=== PATIENT | female | born 1945 | race Caucasian/White ===

== ENCOUNTER 2017-03-25 22:02 | Emergency (ER) | payer BC, MEDICARE ==
[2017-03-25 22:07] VITALS: RESP 18
[2017-03-25] MEDS ORDERED: diphenhydrAMINE 50 MG/ML 1 ML VIAL IVP STA (23:02)
[2017-03-25] MEDS ORDERED: ONDANSETRON 4 MG/2 ML VIAL IVP STA (23:02)
[2017-03-25] MEDS ORDERED: ACETAMINOPHEN TAB 325 MG TAB PO STA (23:02)
[2017-03-25] MEDS ORDERED: KETOROLAC 30 MG/ML 1 ML VIAL IVP STA (23:02)
[2017-03-25] MEDS ORDERED: SODIUM CHLORIDE 0.9% 500 ML IV STA (23:02)
[2017-03-26 00:02] LABS: Appearance,Urine Clear (Clear); Bilirubin,Urine Negative (Negative); Glucose,Urine (UA) Negative (Negative); Ketones,Urine Negative (Negative); Leukocyte Esterase,Urine Large (Negative); Mucus,Urine Rare /hpf; Nitrite,Urine Negative (Negative); PH, Urine 5.5 (5.0-8.0); Particle Count 3784; Protein,Urine Trace (Negative); RBC,Urine 1 /hpf (0-5); Specific Gravity,Urine 1.019 (1.001-1.035); Squamous Epithelial Cell,Urine 5 /hpf (0-4); UA Billing (MACRO vs. MICRO) MICRO; Urobilinogen,Urine <2.0 mg/dL (<2.0); WBC,Urine 2 /hpf (0-5)
--- NOTE | 2017-03-26 00:05 | XR ---
EXAM: XR Chest, 2 Views CLINICAL HISTORY: Cough, fever TECHNIQUE: Frontal and lateral views of the chest. COMPARISON: No relevant prior studies available. FINDINGS: Lungs: Flattening of the hemidiaphragms is seen, likely representing COPD. Biapical pleural thickening again noted. No consolidation. Pleural space: Unremarkable. No pneumothorax. Heart: Unremarkable. No cardiomegaly. Mediastinum: Unremarkable. Bones/joints: Osteopenia suggested. IMPRESSION: Evidence of COPD. No radiographic evidence of acute cardiopulmonary process.
[2017-03-26 00:12] LABS: Basophils % (A) 0 %; CH 31.7; CHCM 32.5; Eosinophils # (A) 0.2 k/uL (0-0.7); Eosinophils % (A) 2 %; HDW 2.19; HGB 13.5 gm/dL (11.4-16.0); Luc # (Auto) 0.08; Luc % (Auto) 1; Lymphocytes # (A) 1.2 k/uL (1.0-4.8); Lymphocytes % (A) 11 %; MCH 30.7 pg (25.0-35.0); MCHC 31.4 g/dL (31.0-37.0); MCV 97.9 fL (80.0-100.0); Mean Platelet Volume 8.8; Monocytes # (A) 0.5 k/uL (0-1.0); Monocytes % (A) 4 %; Neutrophils # (A) 9.3 k/uL (1.3-7.7); Neutrophils % (A) 83 %; RDW 13.7 % (11.5-15.5); WBC 11.2 k/uL (3.8-10.6); WBC (Perox) 11.12
[2017-03-26 00:20] LABS: ALT 30 U/L (9-52); AST 21 U/L (14-36); Alkaline Phosphatase 73 U/L (38-126); Anion Gap 11 mmol/L; Blood Urea Nitrogen 13 mg/dL (7-17); Calcium 9.5 mg/dL (8.4-10.2); Carbon Dioxide 25 mmol/L (22-30); Chloride 105 mmol/L (98-107); Glucose 122 mg/dL (74-99); Non-African American GFR(MDRD) 55 (>60 ml/min/1.73 sqM); Potassium 3.9 mmol/L (3.5-5.1); Sodium 141 mmol/L (137-145); Total Bilirubin 0.5 mg/dL (0.2-1.3); Total Protein 7.3 g/dL (6.3-8.2)
--- NOTE | 2017-03-26 00:55 | ED ---
URI HPI - General Chief Complaint: Upper Respiratory Infection Stated Complaint: Cough Time Seen by Provider: 03/25/17 22:54 Source: patient Mode of arrival: ambulatory Limitations: no limitations - History of Present Illness Initial Comments: 71-year-old female patient presents to the emergency department today for evaluation of cough, sore throat, nasal congestion, headache, and possible urinary tract infection. Patient states that upper respiratory symptoms started this morning. Patient states she has been coughing up clear sputum. She states that he is also having suprapubic abdominal pressure and cramping, and she has been urinating more frequently today. She denies any dysuria, hematuria, or urinary urgency. She states that she feels chilled and felt like she might have a fever earlier today. Patient states she has also been feeling nauseated however has not vomited. Patient denies any recent rash, shortness breath, chest pain, abdominal pain, diarrhea, constipation, back pain, numbness , tingling, dizziness, weakness, visual changes, or any other complaints. She denies any sick contacts. States she did not get the flu vaccine. - Related Data Home Medications Medication Instructions Recorded Confirmed Acetaminophen [Tylenol Extra 500 mg PO DAILY PRN 03/25/17 03/25/17 Strength] Cholecalciferol [Vitamin D3] 5,000 unit PO HS 03/25/17 03/25/17 Fluticasone Nasal [place] [Flonase 1 spray EA NOSTRIL DAILY PRN 03/25/17 03/25/17 Nasal [place]] Lisinopril [Zestril] 20 mg PO HS 03/25/17 03/25/17 Montelukast Sodium [Singulair] 10 mg PO DAILY 03/25/17 03/25/17 Multivitamins, Thera [Multivitamin 1 tab PO HS 03/25/17 03/25/17 (formulary)] Allergies Allergy/AdvReac Type Severity Reaction Status Date / Time benzocaine Allergy Unknown Verified 03/25/17 23:13 [From Chloraseptic Sore Throat] menthol Allergy Unknown Verified 03/25/17 23:13 [From Chloraseptic Sore Throat] Penicillins Allergy Unknown Verified 03/25/17 23:13 Sulfa (Sulfonamide Allergy Unknown Verified 03/25/17 23:13 Antibiotics) Review of Systems ROS Statement: Those systems with pertinent positive or pertinent negative responses have been documented in the HPI. ROS Other: All systems not noted in ROS Statement are negative. Past Medical History Past Medical History: Hypertension Additional Past Medical History / Comment(s): sinus allergies History of Any Multi-Drug Resistant Organisms: None Reported Past Surgical History: Bowel Resection, Hysterectomy Additional Past Surgical History / Comment(s): back Past Psychological History: No Psychological Hx Reported Smoking Status: Never smoker Past Alcohol Use History: None Reported Past Drug Use History: None Reported General Exam Limitations: no limitations General appearance: alert, in no apparent distress, other (This is a well- developed, well-nourished adult female patient in no acute distress. Vital signs upon presentation were temperature 100.8F, pulse 119, respirations 18, blood pressure 149/86, pulse ox 95% on room air.) Eye exam: Present: normal appearance, PERRL, EOMI. Absent: scleral icterus, conjunctival injection, periorbital swelling ENT exam: Present: normal exam, mucous membranes moist, TM's normal bilaterally , other (No tonsillar hypertrophy, tonsillar exudate, or uvular swelling.). Absent: normal oropharynx (Oropharyngeal erythema.) Neck exam: Present: normal inspection. Absent: tenderness, meningismus, lymphadenopathy Respiratory exam: Present: normal lung sounds bilaterally. Absent: respiratory distress, wheezes, rales, rhonchi, stridor Cardiovascular Exam: Present: normal rhythm, tachycardia, normal heart sounds. Absent: systolic murmur, diastolic murmur, rubs, gallop, clicks GI/Abdominal exam: Present: soft, normal bowel sounds. Absent: distended, tenderness, guarding, rebound, rigid Back exam: Present: normal inspection. Absent: CVA tenderness (R), CVA tenderness (L) Neurological exam: Present: alert, oriented X3, CN II-XII intact, other ( Strength in all 4 extremities is 5/5. Patient is alert, with fluid speech, acutely responsive.) Psychiatric exam: Present: normal affect, normal mood Skin exam: Present: warm, dry, intact, normal color. Absent: rash Course Vital Signs 03/25/17 03/26/17 03/26/17 22:04 00:12 01:02 Temperature 99.4 F 98.5 F 98.6 F Pulse Rate 119 H 71 79 Respiratory 18 18 18 Rate Blood Pressure 149/86 148/69 135/64 O2 Sat by Pulse 95 96 96 Oximetry Medical Decision Making - Medical Decision Making 71-year-old female patient presents to the emergency department today with upper respiratory symptoms as well as complaints of suprapubic cramping and urinary frequency. Patient was febrile upon arrival. Labs were reviewed and did show an elevated white blood cell count 11.2. Lactic acid was negative at 1.0. Urinalysis negative for infection. Influenza test was negative. Patient symptoms did improve with IV fluids and antipyretic medication. Vital signs much improved prior to discharge. Patient feels well enough to be discharged home. Symptoms most likely represent viral upper respiratory infection. She is instructed to continue taking Tylenol for fever control. She is instructed to take [id number] nasal decongestants and cough medications as needed. She is instructed to follow-up with her primary care physician for recheck in 1-2 days. She is instructed to return here immediately if her symptoms worsen. - Lab Data Result diagrams: 03/26/17 00:00 03/26/17 00:00 Lab Results 03/25/17 03/25/17 03/26/17 Range/Units 23:45 23:50 00:00 WBC 11.2 H (3.8-10.6) k/uL RBC 4.40 (3.80-5.40) m/uL Hgb 13.5 (11.4-16.0) gm/dL Hct 43.0 (34.0-46.0) % MCV 97.9 (80.0-100.0) fL MCH 30.7 (25.0-35.0) pg MCHC 31.4 (31.0-37.0) g/dL RDW 13.7 (11.5-15.5) % Plt Count 171 (150-450) k/uL Neutrophils % 83 % Lymphocytes % 11 % Monocytes % 4 % Eosinophils % 2 % Basophils % 0 % Neutrophils # 9.3 H (1.3-7.7) k/uL Lymphocytes # 1.2 (1.0-4.8) k/uL Monocytes # 0.5 (0-1.0) k/uL Eosinophils # 0.2 (0-0.7) k/uL Basophils # 0.0 (0-0.2) k/uL Sodium (137-145) mmol/L Potassium (3.5-5.1) mmol/L Chloride (98-107) mmol/L Carbon Dioxide (22-30) mmol/L Anion Gap mmol/L BUN (7-17) mg/dL Creatinine (0.52-1.04) mg/dL Est GFR (MDRD) Af Amer (>60 ml/min/1.73 sqM) Est GFR (MDRD) Non-Af (>60 ml/min/1.73 sqM) Glucose (74-99) mg/dL Plasma Lactic Acid Bob[place] (0.7-2.0) mmol/L Calcium (8.4-10.2) mg/dL Total Bilirubin (0.2-1.3) mg/dL AST (14-36) U/L ALT (9-52) U/L Alkaline Phosphatase (38-126) U/L Total Protein (6.3-8.2) g/dL Albumin (3.5-5.0) g/dL Urine Color Yellow Urine Appearance Clear (Clear) Urine pH 5.5 (5.0-8.0) Ur Specific [place] 1.019 (1.001-1.035) Urine Protein Trace H (Negative) Urine Glucose (UA) Negative (Negative) Urine Ketones Negative (Negative) Urine Blood Negative (Negative) Urine Nitrite Negative (Negative) Urine Bilirubin Negative (Negative) Urine Urobilinogen <2.0 (<2.0) mg/dL Ur Leukocyte Esterase Large H (Negative) Urine RBC 1 (0-5) /hpf Urine WBC 2 (0-5) /hpf Ur Squamous Epith Cells 5 H (0-4) /hpf Urine Mucus Rare H (None) /hpf Influenza Type A RNA Not Detected (Not Detectd) Influenza Type B (PCR) Not Detected (Not Detectd) 03/26/17 03/26/17 Range/Units 00:00 00:00 WBC (3.8-10.6) k/uL RBC (3.80-5.40) m/uL Hgb (11.4-16.0) gm/dL Hct (34.0-46.0) % MCV (80.0-100.0) fL MCH (25.0-35.0) pg MCHC (31.0-37.0) g/dL RDW (11.5-15.5) % Plt Count (150-450) k/uL Neutrophils % % Lymphocytes % % Monocytes % % Eosinophils % % Basophils % % Neutrophils # (1.3-7.7) k/uL Lymphocytes # (1.0-4.8) k/uL Monocytes # (0-1.0) k/uL Eosinophils # (0-0.7) k/uL Basophils # (0-0.2) k/uL Sodium 141 (137-145) mmol/L Potassium 3.9 (3.5-5.1) mmol/L Chloride 105 (98-107) mmol/L Carbon Dioxide 25 (22-30) mmol/L Anion Gap 11 mmol/L BUN 13 (7-17) mg/dL Creatinine 1.00 (0.52-1.04) mg/dL Est GFR (MDRD) Af Amer >60 (>60 ml/min/1.73 sqM) Est GFR (MDRD) Non-Af 55 (>60 ml/min/1.73 sqM) Glucose 122 H (74-99) mg/dL Plasma Lactic Acid Bobo 1.0 (0.7-2.0) mmol/L Calcium 9.5 (8.4-10.2) mg/dL Total Bilirubin 0.5 (0.2-1.3) mg/dL AST 21 (14-36) U/L ALT 30 (9-52) U/L Alkaline Phosphatase 73 (38-126) U/L Total Protein 7.3 (6.3-8.2) g/dL Albumin 4.4 (3.5-5.0) g/dL Urine Color Urine Appearance (Clear) Urine pH (5.0-8.0) Ur Specific [place] (1.001-1.035) Urine Protein (Negative) Urine Glucose (UA) (Negative) Urine Ketones (Negative) Urine Blood (Negative) Urine Nitrite (Negative) Urine Bilirubin (Negative) Urine Urobilinogen (<2.0) mg/dL Ur Leukocyte Esterase (Negative) Urine RBC (0-5) /hpf Urine WBC (0-5) /hpf Ur Squamous Epith Cells (0-4) /hpf Urine Mucus (None) /hpf Influenza Type A RNA (Not Detectd) Influenza Type B (PCR) (Not Detectd) - Radiology Data Radiology results: report reviewed, image reviewed Two-view x-ray of the chest shows flattening of the hemidiaphragms likely representing COPD. Biapical pleural thickening again noted. No consolidation. Pleural spaces unremarkable with no pneumothorax. Heart is unremarkable with no cardiomegaly. Mediastinum is unremarkable. Osteopenia is suggested. Impression by Dr. Powers shows evidence of COPD. No radiographic evidence of acute cardiopulmonary process. Disposition Clinical Impression: Viral upper respiratory illness Disposition: HOME SELF-CARE Condition: Good Instructions: Upper Respiratory Infection (ED) Additional Instructions: Increase fluids. Take [id number] nasal decongestants and cough medications. Follow-up with her primary care physician for recheck in 1-2 days. Return here immediately for any new, worsening, or concerning symptoms. Referrals: Matt Pacheco III, MD [Primary Care Provider] - 1-2 days Time of Disposition: 00:55
[2017-03-26 01:03] VITALS: BP 135/64; PULSE 79; TEMP 98.6
== END 2017-03-26 01:10 | disposition home or self-care (01) ==
LOC: EC 22:02
DX: J06.9 Acute upper respiratory infection, unspecified (principal); R05 Cough; I10 Essential (primary) hypertension; Z79.899 Other long term (current) drug therapy; Z88.0 Allergy status to penicillin; Z88.2 Allergy status to sulfonamides; Z88.4 Allergy status to anesthetic agent; Z88.8 Allergy status to other drugs, medicaments and biological substances
CPT/HCPCS: 99284; 96374; 96375 ×2; 96361; 36415; 93005; 80053; 83605; 85025; 81001; 87040; 87077; 87186; 87502; 71020; J1200; J2405; J1885

== ENCOUNTER 2017-04-02 11:06 | Emergency (ER) | payer MEDICARE ==
--- NOTE | 2017-04-02 12:36 | ED ---
General Adult HPI - General Chief complaint: Recheck/Abnormal Lab/Rx Stated complaint: ABNORMAL LABS Time Seen by Provider: 04/02/17 12:23 Source: patient, RN notes reviewed Mode of arrival: ambulatory Limitations: no limitations - History of Present Illness Initial comments: Patient 71-year-old female who presents emergency room today with a chief complaint of cough congestion over the last week. She does admit that she was seen in the hospital. She states she had blood work obtained. She states that she was discharged home. She states that she saw her family doctor was put on azithromycin and a steroid for her cough congestion. States she still having the cough congestion has finished these medications. States she was informed by her family doctor last Sunday that she had a positive blood culture and should return to the emergency room. She states she was unable to come in over the weekend. She states she is here today because positive blood culture was told that she would need IV antibiotics. Patient denies any other complaints or symptoms. Patient denies any recent fever, chills, shortness of breath, chest pain, back pain, abdominal pain, nausea or vomiting, numbness or tingling , dysuria or hematuria, constipation or diarrhea, headaches or visual changes, or any other complaints. - Related Data Home Medications Medication Instructions Recorded Confirmed Fluticasone Nasal [place] [Flonase 1 spray EA NOSTRIL DAILY PRN 03/25/17 04/02/17 Nasal [place]] Lisinopril [Zestril] 20 mg PO DAILY 03/25/17 04/02/17 Montelukast Sodium [Singulair] 10 mg PO DAILY 03/25/17 04/02/17 Multivitamins, Thera [Multivitamin 1 tab PO DAILY 03/25/17 04/02/17 (formulary)] Biotin 5,000 mcg PO DAILY 04/02/17 04/02/17 Previous Rx's Medication Instructions Recorded Levofloxacin [Levaquin] 500 mg PO DAILY 7 Days tab 04/02/17 Allergies Allergy/AdvReac Type Severity Reaction Status Date / Time benzocaine Allergy Unknown Verified 04/02/17 12:33 [From Chloraseptic Sore Throat] menthol Allergy Unknown Verified 04/02/17 12:33 [From Chloraseptic Sore Throat] Penicillins Allergy Unknown Verified 04/02/17 12:33 Sulfa (Sulfonamide Allergy Unknown Verified 04/02/17 12:33 Antibiotics) Review of Systems ROS Statement: Those systems with pertinent positive or pertinent negative responses have been documented in the HPI. ROS Other: All systems not noted in ROS Statement are negative. Past Medical History Past Medical History: Hypertension Additional Past Medical History / Comment(s): sinus allergies History of Any Multi-Drug Resistant Organisms: None Reported Past Surgical History: Bowel Resection, Hysterectomy Additional Past Surgical History / Comment(s): back Past Psychological History: No Psychological Hx Reported Smoking Status: Never smoker Past Alcohol Use History: None Reported Past Drug Use History: None Reported General Exam - General Exam Comments Initial Comments: General: The patient is awake and alert, in no distress, and does not appear acutely ill. Eye: Pupils are equal, round and reactive to light, extra-ocular movements are intact. No nystagmus. There is normal conjunctiva bilaterally. No signs of icterus. Ears, nose, mouth and throat: There are moist mucous membranes and no oral lesions. Neck: The neck is supple, there is no tenderness or JVD. Cardiovascular: There is a regular rate and rhythm. No murmur, rub or gallop is appreciated. Respiratory: Lungs are clear to auscultation, respirations are non-labored, breath sounds are equal. No wheezes, stridor, rales, or rhonchi. Musculoskeletal: Normal ROM, no tenderness. Strength 5/5. Sensation intact. Pulses equal bilaterally 2+. Neurological: A&O x 3. CN II-XII intact, There are no obvious motor or sensory deficits. Coordination appears grossly intact. Speech is normal. Skin: Skin is warm and dry and no rashes or lesions are noted. Psychiatric: Cooperative, appropriate mood & affect, normal judgment. Limitations: no limitations Course Vital Signs 04/02/17 04/02/17 04/02/17 11:16 13:06 13:50 Temperature 98.0 F 98.7 F Pulse Rate 70 86 Respiratory 20 16 16 Rate Blood Pressure 193/85 O2 Sat by Pulse 99 96 Oximetry Medical Decision Making - Medical Decision Making Patient reexamined at this time shows no signs of distress. Case was discussed and seen by attending physician Dr. Bass discussed case with patient's primary provider Dr. Katherine Powers physician catering assistant who states that she can follow-up with her in the office later this week. Patient clinically appears well no fever. Her labs been reviewed shows all of those white count. Patient is but that she is feeling better when she was a week ago when she was seen here in the emergency room. Unsure if the culture could be possible contaminant. At this time patient will be treated for sinus infection placed on Levaquin. She states she would like to be discharged to stay in the hospital. Patient advised to follow-up the family doctor in the next day. Advised return if any symptoms increase or worsen. - Lab Data Result diagrams: 04/02/17 12:55 04/02/17 12:55 Lab Results 04/02/17 04/02/17 04/02/17 Range/Units 12:55 12:55 12:55 WBC 11.9 H (3.8-10.6) k/uL RBC 4.45 (3.80-5.40) m/uL Hgb 14.0 (11.4-16.0) gm/dL Hct 42.7 (34.0-46.0) % MCV 96.0 (80.0-100.0) fL MCH 31.4 (25.0-35.0) pg MCHC 32.7 (31.0-37.0) g/dL RDW 13.6 (11.5-15.5) % Plt Count 267 (150-450) k/uL Neutrophils % 81 % Lymphocytes % 12 % Monocytes % 4 % Eosinophils % 2 % Basophils % 0 % Neutrophils # 9.6 H (1.3-7.7) k/uL Lymphocytes # 1.5 (1.0-4.8) k/uL Monocytes # 0.4 (0-1.0) k/uL Eosinophils # 0.2 (0-0.7) k/uL Basophils # 0.0 (0-0.2) k/uL Sodium 142 (137-145) mmol/L Potassium 4.9 (3.5-5.1) mmol/L Chloride 104 (98-107) mmol/L Carbon Dioxide 28 (22-30) mmol/L Anion Gap 10 mmol/L BUN 18 H (7-17) mg/dL Creatinine 0.89 (0.52-1.04) mg/dL Est GFR (MDRD) Af Amer >60 (>60 ml/min/1.73 sqM) Est GFR (MDRD) Non-Af >60 (>60 ml/min/1.73 sqM) Glucose 101 H (74-99) mg/dL Plasma Lactic Acid Bobo 2.5 H* (0.7-2.0) mmol/L Calcium 9.8 (8.4-10.2) mg/dL Total Bilirubin 0.3 (0.2-1.3) mg/dL AST 18 (14-36) U/L ALT 24 (9-52) U/L Alkaline Phosphatase 77 (38-126) U/L Total Protein 7.8 (6.3-8.2) g/dL Albumin 4.5 (3.5-5.0) g/dL Urine Color Urine Appearance (Clear) Urine pH (5.0-8.0) Ur Specific [place] (1.001-1.035) Urine Protein (Negative) Urine Glucose (UA) (Negative) Urine Ketones (Negative) Urine Blood (Negative) Urine Nitrite (Negative) Urine Bilirubin (Negative) Urine Urobilinogen (<2.0) mg/dL Ur Leukocyte Esterase (Negative) Urine WBC (0-5) /hpf Ur Squamous Epith Cells (0-4) /hpf Urine Bacteria (None) /hpf Hyaline Casts (0-2) /lpf Urine Mucus (None) /hpf 04/02/17 Range/Units 13:01 WBC (3.8-10.6) k/uL RBC (3.80-5.40) m/uL Hgb (11.4-16.0) gm/dL Hct (34.0-46.0) % MCV (80.0-100.0) fL MCH (25.0-35.0) pg MCHC (31.0-37.0) g/dL RDW (11.5-15.5) % Plt Count (150-450) k/uL Neutrophils % % Lymphocytes % % Monocytes % % Eosinophils % % Basophils % % Neutrophils # (1.3-7.7) k/uL Lymphocytes # (1.0-4.8) k/uL Monocytes # (0-1.0) k/uL Eosinophils # (0-0.7) k/uL Basophils # (0-0.2) k/uL Sodium (137-145) mmol/L Potassium (3.5-5.1) mmol/L Chloride (98-107) mmol/L Carbon Dioxide (22-30) mmol/L Anion Gap mmol/L BUN (7-17) mg/dL Creatinine (0.52-1.04) mg/dL Est GFR (MDRD) Af Amer (>60 ml/min/1.73 sqM) Est GFR (MDRD) Non-Af (>60 ml/min/1.73 sqM) Glucose (74-99) mg/dL Plasma Lactic Acid [place] (0.7-2.0) mmol/L Calcium (8.4-10.2) mg/dL Total Bilirubin (0.2-1.3) mg/dL AST (14-36) U/L ALT (9-52) U/L Alkaline Phosphatase (38-126) U/L Total Protein (6.3-8.2) g/dL Albumin (3.5-5.0) g/dL Urine Color Yellow Urine Appearance Cloudy H (Clear) Urine pH 5.0 (5.0-8.0) Ur Specific [place] 1.011 (1.001-1.035) Urine Protein Negative (Negative) Urine Glucose (UA) Negative (Negative) Urine Ketones Negative (Negative) Urine Blood Negative (Negative) Urine Nitrite Negative (Negative) Urine Bilirubin Negative (Negative) Urine Urobilinogen <2.0 (<2.0) mg/dL Ur Leukocyte Esterase Trace H (Negative) Urine WBC <1 (0-5) /hpf Ur Squamous Epith Cells 4 (0-4) /hpf Urine Bacteria Rare H (None) /hpf Hyaline Casts 1 (0-2) /lpf Urine Mucus Rare H (None) /hpf Disposition Clinical Impression: Sinusitis Disposition: HOME SELF-CARE Condition: Good Instructions: Sinusitis (ED) Additional Instructions: Please use medication as discussed. Please follow-up with family doctor in the next 1-2 days. Please return to emergency room if the symptoms increase or worsen or for any other concerns. Prescriptions: Levofloxacin [Levaquin] 500 mg PO DAILY 7 Days tab Referrals: Matt Pacheco III, MD [Primary Care Provider] - 1-2 days Time of Disposition: 14:24
[2017-04-02 13:07] VITALS: RESP 16
[2017-04-02 13:11] LABS: Basophils % (A) 0 %; CH 30.9; CHCM 32.3; Eosinophils # (A) 0.2 k/uL (0-0.7); Eosinophils % (A) 2 %; HCT 42.7 % (34.0-46.0); HDW 2.22; Luc % (Auto) 1; Lymphocytes # (A) 1.5 k/uL (1.0-4.8); Lymphocytes % (A) 12 %; MCH 31.4 pg (25.0-35.0); MCHC 32.7 g/dL (31.0-37.0); Mean Platelet Volume 8.7; Monocytes # (A) 0.4 k/uL (0-1.0); Monocytes % (A) 4 %; Neutrophils # (A) 9.6 k/uL (1.3-7.7); Neutrophils % (A) 81 %; RBC 4.45 m/uL (3.80-5.40); RDW 13.6 % (11.5-15.5); WBC 11.9 k/uL (3.8-10.6); WBC (Perox) 12.93
[2017-04-02 13:16] LABS: Appearance,Urine Cloudy (Clear); Bacteria,Urine Rare /hpf; Bilirubin,Urine Negative (Negative); Glucose,Urine (UA) Negative (Negative); Ketones,Urine Negative (Negative); Leukocyte Esterase,Urine Trace (Negative); Mucus,Urine Rare /hpf; Nitrite,Urine Negative (Negative); Particle Count 1413; Protein,Urine Negative (Negative); Specific Gravity,Urine 1.011 (1.001-1.035); Squamous Epithelial Cell,Urine 4 /hpf (0-4); UA Billing (MACRO vs. MICRO) MICRO; Urobilinogen,Urine <2.0 mg/dL (<2.0); WBC,Urine <1 /hpf (0-5)
[2017-04-02 13:23] LABS: ALT 24 U/L (9-52); AST 18 U/L (14-36); Alkaline Phosphatase 77 U/L (38-126); Anion Gap 10 mmol/L; Blood Urea Nitrogen 18 mg/dL (7-17); Calcium 9.8 mg/dL (8.4-10.2); Carbon Dioxide 28 mmol/L (22-30); Chloride 104 mmol/L (98-107); Glucose 101 mg/dL (74-99); Non-African American GFR(MDRD) >60 (>60 ml/min/1.73 sqM); Potassium 4.9 mmol/L (3.5-5.1); Sodium 142 mmol/L (137-145); Total Bilirubin 0.3 mg/dL (0.2-1.3); Total Protein 7.8 g/dL (6.3-8.2)
--- NOTE | 2017-04-02 13:32 | XR ---
EXAMINATION TYPE: XR chest 2V DATE OF EXAM: 04/02/2017 COMPARISON: 03/25/2017 HISTORY: 71-year-old female with cough TECHNIQUE: PA and lateral views FINDINGS: The cardiomediastinal silhouette, aorta, and pulmonary vasculature are within normal limits. Lungs an d pleural spaces are clear. IMPRESSION: No acute cardiopulmonary process.
[2017-04-02 14:02] VITALS: BP 193/85; PULSE 86; TEMP 98.7
== END 2017-04-02 14:35 | disposition home or self-care (01) ==
LOC: EC 11:06
DX: J32.9 Chronic sinusitis, unspecified (principal); R79.9 Abnormal finding of blood chemistry, unspecified; I10 Essential (primary) hypertension; Z79.899 Other long term (current) drug therapy; Z88.0 Allergy status to penicillin; Z88.2 Allergy status to sulfonamides; Z88.8 Allergy status to other drugs, medicaments and biological substances
CPT/HCPCS: 36415; 71020; 80053; 81001; 83605; 85025; 87040; 87086; 99283

== ENCOUNTER 2019-12-04 17:00 | Observation (INO) | payer MEDICARE ==
[2019-12-04 17:28] LABS: Basophils # (A) 0.1 k/uL (0-0.2); Basophils % (A) 1 %; Eosinophils # (A) 0.2 k/uL (0-0.7); Eosinophils % (A) 2 %; HCT 39.4 % (34.0-46.0); HGB 12.8 gm/dL (11.4-16.0); Lymphocytes # (A) 1.6 k/uL (1.0-4.8); Lymphocytes % (A) 20 %; MCH 30.7 pg (25.0-35.0); MCHC 32.6 g/dL (31.0-37.0); MCV 94.4 fL (80.0-100.0); Mean Platelet Volume 8.7; Monocytes # (A) 0.5 k/uL (0-1.0); Monocytes % (A) 6 %; Neutrophils # (A) 5.2 k/uL (1.3-7.7); Neutrophils % (A) 69 %; Platelet Count 191 k/uL (150-450); RBC 4.18 m/uL (3.80-5.40); RDW 13.2 % (11.5-15.5); WBC 7.6 k/uL (3.8-10.6)
[2019-12-04 17:37] LABS: Albumin 4.7 g/dL (3.5-5.0); Calcium 9.7 mg/dL (8.4-10.2); Potassium 3.8 mmol/L (3.5-5.1); Total Bilirubin 0.3 mg/dL (0.2-1.3); Total Protein 7.5 g/dL (6.3-8.2)
[2019-12-04] MEDS ORDERED: ASPIRIN 81 MG PO STA (17:43)
[2019-12-04] MEDS ORDERED: NITROGLYCERIN SL TABS 0.4 MG TAB SUBLINGUAL STA (17:43)
[2019-12-04 17:45] LABS: D-Dimer 0.33 mg/L FEU (<0.60); INR 0.9 (<1.2); Partial Thromboplastin Time 22.5 sec (22.0-30.0); Prothrombin Time 9.5 sec (9.0-12.0)
--- NOTE | 2019-12-04 17:49 | ED ---
Chest Pain HPI - General Chief Complaint: Chest Pain Stated Complaint: Chest Pain, HTN Time Seen by Provider: 12/04/19 17:12 Source: patient, RN notes reviewed Mode of arrival: ambulatory Limitations: no limitations - History of Present Illness Initial Comments: This is a 74-year-old female with a prior history of heart disease who was brought in by her family with complaints of elevated blood pressure was noted at her eye doctor appointment today. She also is been having chest pain. She states across her chest with some left arm tingling. She sees currently is 4- 5/10 severity. He states he was feeling exhausted for past several weeks she had a lot of personal trauma with a sister dying as well as with moving. There is a family history of heart disease. No cough no phlegm production no fevers chills or sweats reported MD Complaint: chest pain, other - Related Data Home Medications Medication Instructions Recorded Confirmed Montelukast Sodium [Singulair] 10 mg PO DAILY 03/25/17 12/04/19 diphenhydrAMINE [Benadryl] 25 mg PO HS PRN 12/04/19 12/04/19 Allergies Allergy/AdvReac Type Severity Reaction Status Date / Time benzocaine Allergy Unknown Verified 12/04/19 18:15 [From Chloraseptic Sore Throat] menthol Allergy Unknown Verified 12/04/19 18:15 [From Chloraseptic Sore Throat] Penicillins Allergy Unknown Verified 12/04/19 18:15 Sulfa (Sulfonamide Allergy Unknown Verified 12/04/19 18:15 Antibiotics) Review of Systems ROS Statement: Those systems with pertinent positive or pertinent negative responses have been documented in the HPI. ROS Other: All systems not noted in ROS Statement are negative. EKG Findings - EKG Results: EKG: interpreted by MARCELL, sinus rhythm (Sinus rhythm of 77 appear interval 150 QRS duration 92 QT since QTC 372/420 LVH) Past Medical History Past Medical History: Hypertension Additional Past Medical History / Comment(s): sinus allergies History of Any Multi-Drug Resistant Organisms: None Reported Past Surgical History: Bowel Resection, Hysterectomy Additional Past Surgical History / Comment(s): back Past Psychological History: No Psychological Hx Reported Smoking Status: Never smoker Past Alcohol Use History: None Reported Past Drug Use History: None Reported General Exam - General Exam Comments Initial Comments: This is a well-developed well-nourished awake alert oriented 3 female Limitations: no limitations General appearance: alert, in no apparent distress Head exam: Present: atraumatic, normocephalic, normal inspection Eye exam: Present: normal appearance, PERRL, EOMI. Absent: scleral icterus, conjunctival injection, periorbital swelling ENT exam: Present: normal exam, mucous membranes moist Neck exam: Present: normal inspection. Absent: tenderness, meningismus, lymphadenopathy Respiratory exam: Present: normal lung sounds bilaterally. Absent: respiratory distress, wheezes, rales, rhonchi, stridor Cardiovascular Exam: Present: regular rate, normal rhythm, normal heart sounds. Absent: systolic murmur, diastolic murmur, rubs, gallop, clicks GI/Abdominal exam: Present: soft, normal bowel sounds. Absent: distended, tenderness, guarding, rebound, rigid Extremities exam: Present: normal inspection, full ROM, normal capillary refill. Absent: tenderness, pedal edema, joint swelling, calf tenderness Back exam: Present: normal inspection Neurological exam: Present: alert, oriented X3, CN II-XII intact Psychiatric exam: Present: normal affect, normal mood Skin exam: Present: warm, dry, intact, normal color. Absent: rash Course Vital Signs 12/04/19 12/04/19 12/04/19 17:05 18:09 18:53 Temperature 98.3 F Pulse Rate 82 90 70 Respiratory 18 16 16 Rate Blood Pressure 190/100 174/92 159/67 O2 Sat by Pulse 98 99 100 Oximetry Chest Pain MDM - MDM I did review the imaging and report no acute findings. Patient is feeling improved. The presentation is concerning for angina/ACS. Patient will be admitted for evaluation. The patient was seen by Dr. Marshall in the emergency department. Issue blood pressure still elevated. Disposition Clinical Impression: Unstable angina pectoris, Chest pain, Hypertension Disposition: ADMITTED IP TO THIS HOSP Condition: Fair Referrals: Sabrina Sanchez MD [Primary Care Provider] - 1-2 days
--- NOTE | 2019-12-04 18:24 | XR ---
EXAMINATION: XR chest 2V DATE AND TIME: 12/04/2019 5:37 PM CLINICAL INDICATION: PHH; Chest Pain TECHNIQUE: Departmental protocol COMPARISON: 04/02/2017 FINDINGS: The lungs are clear. The pleural spaces are negative. The cardiac silhouette is not enlarged. The remainder of the mediastinal silhouette is unremarkable. The skeletal structures and soft tissues are negative for acute findings. IMPRESSION: Negative examination.
[2019-12-04] MEDS ORDERED: NITROGLYCERIN SL TABS 0.4 MG TAB SUBLINGUAL PRN (19:29)
[2019-12-04] MEDS ORDERED: HEPARIN SODIUM,PORCINE 5,000 UNIT/ML 1 ML VIAL IV ONE (19:29)
[2019-12-04] MEDS ORDERED: HEPARIN SOD,PORK IN 0.45% NACL 25,000 UNIT in 0.45% NACL 1 250ML.BAG IV SCH (19:30)
[2019-12-04] MEDS ORDERED: diphenhydrAMINE 25 MG CAP PO PRN (19:31)
[2019-12-04] MEDS ORDERED: HYDROcodone/APAP 5-325MG 1 EACH TAB PO PRN (20:04)
[2019-12-04] MEDS ORDERED: ACETAMINOPHEN TAB 500 MG TAB PO PRN (20:04)
[2019-12-04] MEDS ORDERED: ALPRAZolam 0.25 MG TAB PO PRN (20:04)
[2019-12-04] MEDS ORDERED: TEMAZEPAM 15 MG CAP PO PRN (20:04)
[2019-12-04] MEDS: METOPROLOL TARTRATE 12.5 MG TAB PO SCH (21:29)
--- NOTE | 2019-12-04 21:54 | HP ---
HISTORY AND PHYSICAL DATE OF SERVICE: 12/04/2019 CHIEF COMPLAINT: Chest pain. HISTORY OF PRESENT ILLNESS: This 74-year-old woman with a past medical history of multiple medical problems, including hypertension, history of sinus allergies, history of bowel resection, history of hysterectomy, being followed by Katherine Powers and Dr. Sabrina Sanchez in the outpatient setting, was complaining of chest discomfort, more of a heavy in character. Patient also had elevated blood pressure. The patient also was complaining of pain in the back of the head as well as behind the eyes. Discomfort was about 4 to 5 out of 10 in intensity. Patient was feeling exhausted for the last few weeks. The patient had significant social stress associated with her sister dying and moving also. There is no history of any fever, rigor or chills. No history of headache, loss of consciousness, seizures at this time. PAST MEDICAL HISTORY: Hypertension, history of sinus allergy, bowel resection, hysterectomy. HOME MEDICATIONS: 1. Benadryl 25 mg at bedtime p.r.n. 2. Singulair 10 mg daily. ALLERGIES: BENZOCAINE, MENTHOL, PENICILLIN, SULFA. FAMILY HISTORY: No history of heart disease or strokes in the family. SOCIAL HISTORY: No history of smoking. No history of alcohol intake. REVIEW OF SYSTEMS: ENT: As mentioned earlier. CARDIOVASCULAR SYSTEM: As mentioned earlier. RESPIRATORY SYSTEM: No cough, hemoptysis. GI: No nausea, vomiting. : No dysuria or retention. NERVOUS SYSTEM: No numbness, weakness. ALLERGY/IMMUNOLOGY: No asthma, hayfever. MUSCULOSKELETAL: As mentioned earlier. HEMATOLOGY/ONCOLOGY: No history of anemia. ENDOCRINE: No history of diabetes, hypothyroidism. CONSTITUTIONAL: As mentioned earlier. DERMATOLOGY: Negative. RHEUMATOLOGY: Negative. PSYCHIATRY: As mentioned earlier. PHYSICAL EXAMINATION: Patient alert and oriented x3. Pulse 70, blood pressure 159/67, respirations 16, temperature 98.3, pulse ox 100% on room air. HEENT: Conjunctivae normal. Oral mucosa moist. NECK: No jugular venous distention. No carotid bruit. No lymph node enlargement. CARDIOVASCULAR SYSTEM: S1, S2 muffled. RESPIRATORY SYSTEM: Breath sounds diminished at the bases. No rhonchi. No crackles. ABDOMEN: Soft, non-tender. No mass palpable. LEGS: No edema. No swelling. NERVOUS SYSTEM: Higher functions as mentioned earlier. Moves all 4 limbs. No focal motor or sensory deficit. LYMPHATICS: No lymph node palpable in neck, axillae or groin. SKIN: No ulcer, rash, bleeding. JOINTS: No active deforming arthropathy. LABS: CBC within normal limits and glucose 104. ASSESSMENT: 1. Chest pain, possible unstable angina. 2. Hypertensive urgency and accelerated hypertension. 3. History of sinus allergy. 4. Bowel resection. 5. History of hysterectomy. 6. History of back pain, degenerative joint disease. RECOMMENDATIONS AND DISCUSSION: In this 74-year-old woman who presented with multiple complex medical issues, at this time we will monitor the patient closely, continue the current medications, continue with symptomatic treatment. I would recommend beta blockers, cardiology evaluation. Possible cardiac stress test. Otherwise, n.p.o. after midnight. Symptomatic treatment. Prognosis is guarded because of multiple complex medical issues. Further recommendations to follow. A copy of this dictation is being forwarded to Katherine Powers and Dr. Sabrina Sanchez. MMMAMTAL / IJN: [id number] /
[2019-12-05] MEDS: NITROGLYCERIN OINT 1 INCH/GM PACKET TOPICAL SCH ×2 (00:10→06:08)
[2019-12-05] MEDS ORDERED: HEPARIN SODIUM,PORCINE 5,000 UNIT/ML 1 ML VIAL IV PRN (01:35)
[2019-12-05] MEDS ORDERED: PANTOPRAZOLE 40 MG TABLET PO SCH (07:30)
[2019-12-05 07:48] LABS: Basophils % (A) 1 %; Eosinophils # (A) 0.2 k/uL (0-0.7); Eosinophils % (A) 4 %; HCT 37.4 % (34.0-46.0); HGB 12.1 gm/dL (11.4-16.0); Lymphocytes # (A) 2.2 k/uL (1.0-4.8); Lymphocytes % (A) 33 %; MCH 30.9 pg (25.0-35.0); MCHC 32.4 g/dL (31.0-37.0); MCV 95.4 fL (80.0-100.0); Mean Platelet Volume 8.8; Monocytes # (A) 0.4 k/uL (0-1.0); Monocytes % (A) 6 %; Neutrophils # (A) 3.6 k/uL (1.3-7.7); Neutrophils % (A) 55 %; Platelet Count 164 k/uL (150-450); RBC 3.92 m/uL (3.80-5.40); RDW 13.2 % (11.5-15.5); WBC 6.6 k/uL (3.8-10.6)
[2019-12-05] MEDS ORDERED: REGADENOSON 0.4 MG/5 ML SYRINGE IV ONE (08:31)
[2019-12-05] MEDS ORDERED: CAFFEINE CITRATE 60 MG/3 ML VIAL IV PRN (08:31)
[2019-12-05] MEDS ORDERED: AMINOPHYLLINE 500 MG/20 ML VIAL IV PRN (08:31)
[2019-12-05 08:58] LABS: Calcium 9.1 mg/dL (8.4-10.2)
[2019-12-05] MEDS ORDERED: lisinopriL 10 MG TAB PO SCH (09:00)
[2019-12-05] MEDS ORDERED: ASPIRIN 325 MG TAB PO SCH (09:00)
[2019-12-05] MEDS ORDERED: MONTELUKAST 10 MG TAB PO SCH (09:00)
[2019-12-05 11:24] VITALS: RESP 16
[2019-12-05] MEDS ORDERED: AMINOPHYLLINE 500 MG/20 ML VIAL IV ONE (11:25)
--- NOTE | 2019-12-05 11:27 | P.CRDCN ---
History of Present Illness History of present illness: HISTORY OF PRESENTING ILLNESS This is a pleasant 74-year-old female past medical history significant for hypertension. She follows regularly with her primary care physician however has had a lot of life changes recently. She recently lost her sister unexpectedly and is currently moving her residence. She has not been to see her primary care physician recently and ran out of her prescribed Lopressor. She has not taken it for over 3 weeks. She denies prior history of coronary artery disease and does not follow regularly with a ocular pathologist. She states approximately 20 years ago she did undergo cardiac catheterization and was told she has small arteries but had no blockages. Exact details are unavailable. We have been asked to see in consultation for chest pain. She states for the previous 2-3 weeks since losing her sister she has been experiencing intermittent heaviness in the left precordial region. At times it radiates down into the left arm and hand and her arm feels quite heavy. It is not associated with exertion or activity. It is not exacerbated by deep inspiration or movement of her torso. She was a true reading this discomfort to [facility]. She we nt for a scheduled eye exam yesterday and one there her blood pressure was elevated over 200 systolic. She discussed with her primary care physician and was sent to the hospital for blood pressure management. On arrival to the hospital blood pressure was 190/100 with a heart rate of 82. DIAGNOSTICS EKG reveals sinus mechanism heart rate of 77 with significant LVH T-wave inversions noted in the lateral leads consistent with LVH. Compared with previous EKGs in 2017 no acute changes noted. Chest xray negative for an acute cardiopulmonary process. Laboratory reviewed, CBC unremarkable, d-dimer 0.33, sodium 139, potassium 4.0, creatinine 0.89, magnesium 2.0, cardiac enzymes negative 3, NT proBNP 352, LDL 87 HDL 56. REVIEW OF SYSTEMS At the time of my exam: CONSTITUTIONAL: Denies fever or chills. CARDIOVASCULAR: Denies chest pain, shortness of breath, orthopnea, PND or palpitations. RESPIRATORY: Denies cough. GASTROINTESTINAL: Denies abdominal pain, diarrhea, constipation, nausea or v omiting. MUSCULOSKELETAL: Denies myalgias. NEUROLOGIC: Denies numbness, tingling or weakness. ENDOCRINE: Denies fatigue, weight change, polydipsia or polyurina. GENITOURINARY: Denies burning, hematuria or urgency with micturation. HEMATOLOGIC: Denies history of anemia or bleeding. PHYSICAL EXAMINATION Blood pressure 157/71 heart rate 62 afebrile and maintaining oxygen saturation on room air. CONSTITUTIONAL: No apparent distress. HEENT: Head is normocephalic. Pupils are equal, round. Sclerae anicteric. Mucous membranes of the mouth are moist. No JVD. No carotid bruit. CHEST EXAMINATION: Lungs are clear to auscultation. No chest wall tenderness is noted on palpation or with deep breathing. HEART EXAMINATION: Regular rate and rhythm. S1, S2 heard. No murmurs, gallops or rub. ABDOMEN: Soft, nontender. Positive bowel sounds. EXTREMITIES: 2+ peripheral pulses, no lower extremity edema and no calf tenderness. NEUROLOGIC EXAMINATION: Patient is awake, alert and oriented x3. ASSESSMENT Chest pain, an acute coronary event has been ruled out. Uncontrolled hypertension PLAN An acute coronary event has been ruled out. Initiate lisinopril along with Lopressor for hypertension management. Obtain 2-D echocardiogram and Doppler study to assess cardiac structure and function. Proceed with Lexiscan stress test to assess for underlying cardiac ischemia. If reversibility is noted we consider proceeding with cardiac catheterization. If stress test is unremarkable she may be discharged from a cardiac perspective. Medication compliance discussed at length. Advised her to obtain a blood pressure cuff and check her blood pressure at home daily. Keep a journal to bring to her follow-up appointment. Follow-up in the office with Dr. Guthrie in 2 weeks. Thank you kindly for this consultation. Nurse Practitioner note has been reviewed, I agree with a documented findings and plan of care. Patient was seen and examined. Past Medical History Past Medical History: Hypertension Additional Past Medical History / Comment(s): sinus allergies History of Any Multi-Drug Resistant Organisms: None Reported Past Surgical History: Bowel Resection, Hysterectomy Additional Past Surgical History / Comment(s): two back surgeries Past Psychological History: No Psychological Hx Reported Smoking Status: Never smoker Past Alcohol Use History: None Reported Past Drug Use History: None Reported - Past Family History Mother Family Medical History: CVA/TIA Sister(s) Family Medical History: Congestive Heart Failure (CHF) Additional Family Medical History / Comment(s): Angina Medications and Allergies Home Medications Medication Instructions Recorded Confirmed Type Montelukast Sodium [Singulair] 10 mg PO DAILY 03/25/17 12/04/19 History diphenhydrAMINE [Benadryl] 25 mg PO HS PRN 12/04/19 12/04/19 History Allergies Allergy/AdvReac Type Severity Reaction Status Date / Time benzocaine Allergy Unknown Verified 12/04/19 18:15 [From Chloraseptic Sore Throat] menthol Allergy Unknown Verified 12/04/19 18:15 [From Chloraseptic Sore Throat] Penicillins Allergy Unknown Verified 12/04/19 18:15 Sulfa (Sulfonamide Allergy Unknown Verified 12/04/19 18:15 Antibiotics) Physical Exam Vitals: Vital Signs Temp Pulse Pulse Resp BP BP Pulse Ox 12/05/19 02:55 97.5 F L 62 17 157/71 98 12/04/19 21:27 98.0 F 73 18 193/79 96 12/04/19 20:02 75 16 171/94 97 12/04/19 18:53 70 16 159/67 100 12/04/19 18:09 90 16 174/92 99 12/04/19 17:05 98.3 F 82 18 190/100 98 Intake and Output 12/04/19 12/05/19 12/05/19 22:59 06:59 14:59 Intake Total 50.512 Balance 50.512 Intake: Intake, IV Titration 50.512 Amount Heparin Sod,Pork in 0.45% 50.512 NaCl 25,000 unit In 0.45 % NaCl 1 250ml.bag @ 12 UNITS/KG/HR 8.709 mls/hr IV .Q24H [facility] Rx#: [id number] Other: Voiding Method Toilet Toilet Diaper Diaper # Voids 1 2 2 Weight 72.575 kg Results 12/05/19 07:12 12/05/19 07:12 Cardiac Enzymes 12/04/19 12/04/19 12/04/19 Range/Units 17:14 17:14 20:39 AST 25 (14-36) U/L Troponin I <0.012 <0.012 (0.000-0.034) ng/mL 12/04/19 Range/Units 23:15 AST (14-36) U/L Troponin I <0.012 (0.000-0.034) ng/mL Coagulation 12/04/19 12/05/19 12/05/19 Range/Units 17:14 00:46 07:12 PT 9.5 (9.0-12.0) sec APTT 22.5 38.4 H 92.8 H (22.0-30.0) sec Lipids 12/05/19 Range/Units 07:12 Triglycerides 166 H (<150) mg/dL Cholesterol 176 (<200) mg/dL HDL Cholesterol 56 (40-60) mg/dL CBC 12/04/19 12/05/19 Range/Units 17:14 07:12 WBC 7.6 6.6 (3.8-10.6) k/uL RBC 4.18 3.92 (3.80-5.40) m/uL Hgb 12.8 12.1 (11.4-16.0) gm/dL Hct 39.4 37.4 (34.0-46.0) % Plt Count 191 164 (150-450) k/uL Comprehensive Metabolic Panel 12/04/19 12/05/19 Range/Units 17:14 07:12 Sodium 140 139 (137-145) mmol/L Potassium 3.8 4.0 (3.5-5.1) mmol/L Chloride 106 109 H (98-107) mmol/L Carbon Dioxide 24 23 (22-30) mmol/L BUN 16 16 (7-17) mg/dL Creatinine 0.92 0.89 (0.52-1.04) mg/dL Glucose 104 H 101 H (74-99) mg/dL Calcium 9.7 9.1 (8.4-10.2) mg/dL AST 25 (14-36) U/L ALT 18 (4-34) U/L Alkaline Phosphatase 84 (38-126) U/L Total Protein 7.5 (6.3-8.2) g/dL Albumin 4.7 (3.5-5.0) g/dL Current Medications Generic Name Dose Route Start Last Admin Trade Name Freq PRN Reason Stop Dose Admin Acetaminophen 500 mg 12/04/19 20:04 Tylenol Tab PO Q6HR PRN Fever and/ or Pain Hydrocodone Bitart/Acetaminophen 1 each 12/04/19 20:04 [place] 5-325 PO Q6HR PRN Pain Alprazolam 0.25 mg 12/04/19 20:04 Xanax PO TID PRN Anxiety Aminophylline 100 mg 12/05/19 08:31 Aminophylline IV 12/05/19 23:00 ONCE PRN Patient Response Aspirin 325 mg 12/05/19 09:00 12/05/19 08:47 Aspirin PO 325 mg DAILY [facility]IREN Administration Caffeine Citrate 60 mg 12/05/19 08:31 Cafcit Inj IV 12/05/19 23:00 ONCE PRN Patient Response Diphenhydramine HCl 25 mg 12/04/19 19:31 Benadryl PO HS PRN Allergy Symptoms Heparin Sodium (Porcine) 0 unit 12/05/19 01:35 12/05/19 01:47 Heparin IV 1,800 unit PER PROTOCOL PRN Administration Low PTT Protocol Heparin Sodium/Sodium Chloride 250 mls @ 8.709 mls/hr 12/04/19 19:30 12/05/19 01:47 25,000 unit/ Sodium Chloride IV 14 units/kg/hr .Q24H [facility] 10.161 mls/hr Titration Protocol 12 UNITS/KG/HR Lisinopril 10 mg 12/05/19 09:00 12/05/19 08:47 Zestril PO 10 mg DAILY HIREN Administration Metoprolol Tartrate 12.5 mg 12/04/19 21:00 12/04/19 21:29 Lopressor PO 12.5 mg BID HIREN Administration Montelukast Sodium 10 mg 12/05/19 09:00 12/05/19 08:47 Singulair PO 10 mg DAILY HIREN Administration Nitroglycerin 0.4 mg 12/04/19 19:29 Nitrostat SUBLINGUAL Q5M PRN Chest Pain Pantoprazole Sodium 40 mg 12/05/19 07:30 12/05/19 06:08 Protonix PO 40 mg AC-BRKFST HIREN Administration Temazepam 15 mg 12/04/19 20:04 Restoril PO HS PRN Insomnia Intake and Output 12/04/19 12/05/19 12/05/19 22:59 06:59 14:59 Intake Total 50.512 Balance 50.512 Intake: Intake, IV Titration 50.512 Amount Heparin Sod,Pork in 0.45% 50.512 NaCl 25,000 unit In 0.45 % NaCl 1 250ml.bag @ 12 UNITS/KG/HR 8.709 mls/hr IV .Q24H [facility] Rx#: [id number] Other: Voiding Method Toilet Toilet Diaper Diaper # Voids 1 2 2 Weight 72.575 kg 12/05/19 07:12 12/05/19 07:12
--- NOTE | 2019-12-05 11:39 | ECHOF ---
Referral Reason:cp, uncontrolled htn MEASUREMENTS -------- HEIGHT: 157.5 cm WEIGHT: 72.6 kg BP: 157/71 RVIDd: 2.9 cm (< 3.3) IVSd: 2.1 cm (0.6 - 1.1) LVIDd: 2.8 cm (3.9 - 5.3) LVPWd: 1.8 cm (0.6 - 1.1) IVSs: 2.1 cm LVIDs: 1.7 cm LVPWs: 1.9 cm LAESV Index (A-L): 34.26 ml/m Ao Diam: 3.0 cm (2.0 - 3.7) AV Cusp: 2.1 cm (1.5 - 2.6) MV EXCURSION: 11.540 mm (> 18.000) MV EF SLOPE: 111 mm/s (70 - 150) EPSS: 0.2 cm MV E Gunnar: 0.81 m/s MV DecT: 193 ms MV A Gunnar: 1.20 m/s MV E/A Ratio: 0.67 RAP: 5.00 mmHg RVSP: 35.77 mmHg FINDINGS -------- Sinus rhythm. This was a technically adequate study. The left ventricular size is normal. There is severe concentric left ventricular hypertrophy. Ove rall left ventricular systolic function is normal with, an EF between 55 - 60 %. The diastolic fill ing pattern is normal for the age of the patient 16.20. The right ventricle is normal in size. LA is moderately dilated 34-39 ml/m2 The right atrial size is normal. Interatrial and interventricular septum intact. The aortic valve is trileaflet and appears structurally normal. There is no evidence of aortic regu rgitation. There is no evidence of aortic stenosis. Dhzf-ux-wddpkiti mitral regurgitation is present. Mild tricuspid regurgitation present. There is mild pulmonary hypertension. The right ventricular systolic pressure, as measured by Doppler, is 35.77mmHg. There is no pulmonic regurgitation present. The aortic root size is normal. Normal inferior vena cava with normal inspiratory collapse consistent with estimated right atrial pre ssure of 5 mmHg. There is no pericardial effusion. CONCLUSIONS -------- 1. The left ventricular size is normal. 2. There is severe concentric left ventricular hypertrophy. 3. Overall left ventricular systolic function is normal with, an EF between 55 - 60 %. 4. The diastolic filling pattern is normal for the age of the patient 16.20 5. LA is moderately dilated 34-39 ml/m2 6. Jpkv-lt-moajjwxe mitral regurgitation is present. 7. Mild tricuspid regurgitation present. 8. There is mild pulmonary hypertension. 9. The right ventricular systolic pressure, as measured by Doppler, is 35.77mmHg. OPTICAL FABRICATION TECHNICIAN: Yessenia Tierney RDCS
--- NOTE | 2019-12-05 11:59 | P.STRESS ---
- Stress Test Note Stress Test Results/Findings: Exam Performed: Exam Date: Reason for Exam: Height: 5 ft 2 in Weight: 72.575 kg Protocol: Stage: Duration of Exercise: Resting Heart Rate: Resting Blood Pressure: Maximum Achieved Heart Rate: Maximum Achieved Blood Pressure: 85% PMHR: 100% PMHR: METS: Technologist Comment: Stress Test Results/Findings: This is a 74-year-old female with history of hypertension was admitted to the hospital with chest pain and shortness of breath. Stress data: Baseline EKG showed a sinus rhythm with the evidence of left ventricle hypertrophy and nonspecific ST-T changes. Blood pressure at rest was 187/59, pulse rate of 66. A standard dose of Lexiscan was infused. EKGs taken during and after the infusion, continued to show baseline EKG changes. Final impression: #1. Nondiagnostic Lexiscan stress test because of baseline EKG changes #2. Report on the nuclear images to be given by the radiologist
--- NOTE | 2019-12-05 13:39 | NM ---
EXAMINATION TYPE: NM stress lexiscan cardiolite DATE OF EXAM: 12/05/2019 COMPARISON: NONE HISTORY: Chest pain TECHNIQUE: After the intravenous administration of 9.8 mCi Tc 99m Sestamibi - Cardiolite resting SPE CT images acquired 65 minutes post injection. The patient received 0.4mg Lexiscan, 25.9 mCi Tc 99m Sestamibi - Stress images obtained [address] injection FINDINGS: Review of stress and rest SPECT images demonstrates no distinct perfusion abnormality. Gated analysi s shows normal wall motion with an estimated left ventricular ejection fraction of 67 %. IMPRESSION: No scintigraphic evidence for reversible ischemia.
[2019-12-05 14:44] VITALS: BP 150/72; PULSE 63; TEMP 97.5
[2019-12-05] MEDS: METOPROLOL TARTRATE 12.5 MG TAB PO SCH (15:06)
--- NOTE | 2019-12-05 16:20 | EST ---
Stress Test Results/Findings: Exam Performed: Stress LExiscan Exam Date: 12/05/19 Reason for Exam: Chest Pressure Height: 5 ft 2 in Weight: 72.575 kg Protocol: Lexiscan Stage: Duration of Exercise: Resting Heart Rate: 66 Resting Blood Pressure: 187/59 Maximum Achieved Heart Rate: 94 Maximum Achieved Blood Pressure: 207/67 85% PMHR: 123 100% PMHR: 145 METS: Technologist Comment: Stress Test Results/Findings: This is a 74-year-old female with history of hypertension was admitted to the hospital with chest pain and shortness of breath. Stress data: Baseline EKG showed a sinus rhythm with the evidence of left ventricle hypertrophy and nonspecific ST-T changes. Blood pressure at rest was 187/59, pulse rate of 66. A standard dose of Lexiscan was infused. EKGs taken during and after the infusion, continued to show baseline EKG changes. Final impression: #1. Nondiagnostic Lexiscan stress test because of baseline EKG changes #2. Report on the nuclear images to be given by the radiologist FLORENCE
--- NOTE | 2019-12-08 09:17 | P.DS ---
Providers Date of admission: 12/04/19 19:29 Expected date of discharge: 12/05/19 Attending physician: Christina Marshall Consults: 12/04/19 19:29 Consult Physician Urgent Consulting Provider: Adrian Chapman Consult Reason/Comments: Chest pain Do you want consulting provider notified?: Yes Primary care physician: Sabrina Jiménez [facility] Course: Final diagnosis Chest pain, possible unstable angina Hypertensive urgency and accelerated hypertension History of sinus ALLERGY Bowel resection History of hysterectomy History back pain, degenerative joint disease Discharge disposition Patient is being discharged in a stable condition with guarded prognosis to home. Patient will follow-up with Dr. jiménez upon discharge. Patient will also be following up with cardiology Dr. Guthrie as discussed and scheduled. Patient will continue aspirin along with metoprolol and lisinopril upon discharge. Total time taken is greater than 35 minutes. History of present illness This is an 74-year-old female who was recently admitted with and was being closely monitored. Infectious disease was following. Patient was seen and evaluated by cardiology and underwent a stress test which was negative. Patient also underwent echo showing overall left ventricular systolic function is normal with an EF between 55 and 60%. Does have [id number] mitral regurgitation present along with mild tricuspid regurgitation and some mild pulmonary hypertension noted. Multiple medication adjustments have been made and patient will continue on aspirin along with metoprolol and lisinopril for hypertension in the outpatient setting. Patient instructed follow-up with her primary care provider along with cardiology as discussed and scheduled. Currently no reports of chest pain, shortness of breath, or palpitations. Patient is afebrile. No reports of nausea or vomiting and patient is tolerating diet. On exam vital signs are stable. Temp is 97.5F, pulse is 63, respirations are 16, blood pressure is 150/72, oxygen saturation is 99% on room air. Cardio S1, S2 are muffled. Respiratory shows diminished breath sounds at the bases with no wheezing or rhonchi noted. Abdomen is soft and nontender. Nervous system shows no focal deficits. Please refer to medication reconciliation sheet for a list of medications. Patient Condition at Discharge: Fair Plan - Discharge Summary Discharge Rx Participant: No New Discharge Prescriptions: New Aspirin EC [Ecotrin Low Dose] 81 mg PO DAILY #30 tablet. Metoprolol Tartrate [Lopressor] 12.5 mg PO BID 30 Days #60 tab Nitroglycerin Sl Tabs [Nitrostat] 0.4 mg SUBLINGUAL Q5M PRN #30 tab PRN Reason: Chest Pain lisinopriL [Zestril] 10 mg PO DAILY 30 Days #30 tab Continue Montelukast Sodium [Singulair] 10 mg PO DAILY diphenhydrAMINE [Benadryl] 25 mg PO HS PRN PRN Reason: Allergy Symptoms Discharge Medication List Montelukast Sodium [Singulair] 10 mg PO DAILY 03/25/17 [History] diphenhydrAMINE [Benadryl] 25 mg PO HS PRN 12/04/19 [History] Aspirin EC [Ecotrin Low Dose] 81 mg PO DAILY #30 tablet. 12/05/19 [Rx] Metoprolol Tartrate [Lopressor] 12.5 mg PO BID 30 Days #60 tab 12/05/19 [Rx] Nitroglycerin Sl Tabs [Nitrostat] 0.4 mg SUBLINGUAL Q5M PRN #30 tab 12/05/19 [Rx] lisinopriL [Zestril] 10 mg PO DAILY 30 Days #30 tab 12/05/19 [Rx] Follow up Appointment(s)/Referral(s): Sabrina Jiménez MD [Primary Care Provider] - 1-2 days (Office is currently closed, please call SundayDecember 07 to schedule follow up appointment.) Terry Guthrie MD [STAFF PHYSICIAN] - 12/22/19 11:15 am Patient Instructions/Handouts: Chest Pain (GEN), Hypertension (GEN) Activity/Diet/Wound Care/Special Instructions: Activity Limited until follow-up Follow-up with primary care provider upon discharge Continue current diet Follow-up with cardiology as discussed and scheduled in 2 weeks Continue with new medications Obtaining a blood pressure cuff and keep readings of blood pressure for primary care follow-up along with cardiology follow-up. Discharge Disposition: HOME SELF-CARE
== END 2019-12-05 16:07 | disposition home or self-care (01) ==
LOC: EC 17:00 → 3NCARDOBS 19:29
PROVIDERS: ADMIT Hospitalist; ATTEND Hospitalist
DX: R07.89 Other chest pain (principal); I16.0 Hypertensive urgency; I11.9 Hypertensive heart disease without heart failure; J30.9 Allergic rhinitis, unspecified; R20.2 Paresthesia of skin; M47.899 Other spondylosis, site unspecified; I08.1 Rheumatic disorders of both mitral and tricuspid valves; I27.20 Pulmonary hypertension, unspecified; F43.9 Reaction to severe stress, unspecified; T44.7X6A Underdosing of beta-adrenoreceptor antagonists, initial encounter; Z91.128 Patient's intentional underdosing of medication regimen for other reason; Z90.49 Acquired absence of other specified parts of digestive tract; Z90.710 Acquired absence of both cervix and uterus; Z03.818 Encounter for observation for suspected exposure to other biological agents ruled out; Z79.899 Other long term (current) drug therapy; Z88.4 Allergy status to anesthetic agent; Z88.0 Allergy status to penicillin; Z88.2 Allergy status to sulfonamides; Z98.890 Other specified postprocedural states; Z82.49 Family history of ischemic heart disease and other diseases of the circulatory system; Z82.3 Family history of stroke
CPT/HCPCS: 93005 ×2; 96366 ×2; 96376 ×2; 96365; 99285; 36415; 93017; 93306; 85379; 83880; 80061; 80053; 80048; 82550; 83735; 84484; 85025 ×2; 85610; 85730 ×2; 71046; 78452; G0378 ×2; U0003; A9500; J1644 ×3; J0280; J2785

== ENCOUNTER 2019-12-24 16:48 | Inpatient (IN) | payer MEDICARE ==
[2019-12-24] MEDS ORDERED: ONDANSETRON 4 MG/2 ML VIAL IVP STA ×2 (17:15→19:51)
[2019-12-24] MEDS ORDERED: SODIUM CHLORIDE 0.9% 1,000 ML IV STA ×2 (17:15)
[2019-12-24] MEDS ORDERED: KETOROLAC 15 MG/ML 1 ML VIAL IVP STA (17:16)
[2019-12-24 17:56] LABS: Basophils % (A) 0 %; Eosinophils # (A) 0.1 k/uL (0-0.7); Eosinophils % (A) 1 %; HCT 39.2 % (34.0-46.0); HGB 12.6 gm/dL (11.4-16.0); Lymphocytes # (A) 0.7 k/uL (1.0-4.8); Lymphocytes % (A) 5 %; MCH 30.4 pg (25.0-35.0); MCHC 32.2 g/dL (31.0-37.0); MCV 94.4 fL (80.0-100.0); Mean Platelet Volume 8.9; Monocytes # (A) 0.8 k/uL (0-1.0); Monocytes % (A) 5 %; Neutrophils # (A) 12.9 k/uL (1.3-7.7); Neutrophils % (A) 88 %; Platelet Count 158 k/uL (150-450); RBC 4.15 m/uL (3.80-5.40); RDW 13.1 % (11.5-15.5); WBC 14.6 k/uL (3.8-10.6)
--- NOTE | 2019-12-24 17:59 | ED ---
Abdominal Pain HPI - General Chief Complaint: Abdominal Pain Stated Complaint: poss bowel obstruction Time Seen by Provider: 12/24/19 17:01 Source: patient, RN notes reviewed Mode of arrival: wheelchair Limitations: no limitations - History of Present Illness Initial Comments: 74-year-old female presents emergency Department chief complaint of abdominal pain. Patient's been having increasing pain over the last 24 hours. Patient states left-sided abdominal pain. She denies any significant diarrhea constipation she has has nausea vomiting. Patient states she cannot keep anything down. Patient reports chills at home inspected fever. Patient's had colon resection secondary to pouching in the past. Patient denies any recent surgeries. Patient's prior surgeons Dr. Barrett. Patient denies chest pain or shortness breath no flank pain no back pain - Related Data Home Medications Medication Instructions Recorded Confirmed Montelukast Sodium [Singulair] 10 mg PO DAILY 03/25/17 12/04/19 diphenhydrAMINE [Benadryl] 25 mg PO HS PRN 12/04/19 12/04/19 Previous Rx's Medication Instructions Recorded Aspirin EC [Ecotrin Low Dose] 81 mg PO DAILY #30 tablet. 12/05/19 Metoprolol Tartrate [Lopressor] 12.5 mg PO BID 30 Days #60 tab 12/05/19 Nitroglycerin Sl Tabs [Nitrostat] 0.4 mg SUBLINGUAL Q5M PRN #30 tab 12/05/19 lisinopriL [Zestril] 10 mg PO DAILY 30 Days #30 tab 12/05/19 Allergies Allergy/AdvReac Type Severity Reaction Status Date / Time benzocaine Allergy Unknown Verified 12/24/19 16:56 [From Chloraseptic Sore Throat] menthol Allergy Unknown Verified 12/24/19 16:56 [From Chloraseptic Sore Throat] Penicillins Allergy Unknown Verified 12/24/19 16:56 Sulfa (Sulfonamide Allergy Unknown Verified 12/24/19 16:56 Antibiotics) Review of Systems ROS Statement: Those systems with pertinent positive or pertinent negative responses have been documented in the HPI. ROS Other: All systems not noted in ROS Statement are negative. Past Medical History Past Medical History: Hypertension Additional Past Medical History / Comment(s): sinus allergies History of Any Multi-Drug Resistant Organisms: None Reported Past Surgical History: Bowel Resection, Hysterectomy Additional Past Surgical History / Comment(s): two back surgeries Past Psychological History: No Psychological Hx Reported Smoking Status: Never smoker Past Alcohol Use History: None Reported Past Drug Use History: None Reported - Past Family History Mother Family Medical History: CVA/TIA Sister(s) Family Medical History: Congestive Heart Failure (CHF) Additional Family Medical History / Comment(s): Angina General Exam Limitations: no limitations General appearance: alert, in no apparent distress Head exam: Present: atraumatic, normocephalic, normal inspection Eye exam: Present: normal appearance, PERRL, EOMI. Absent: scleral icterus, conjunctival injection, periorbital swelling ENT exam: Present: normal exam, normal oropharynx, mucous membranes moist Neck exam: Present: normal inspection. Absent: tenderness, meningismus, lymphad enopathy Respiratory exam: Present: normal lung sounds bilaterally. Absent: respiratory distress, wheezes, rales, rhonchi, stridor Cardiovascular Exam: Present: normal rhythm, tachycardia, normal heart sounds. Absent: systolic murmur, diastolic murmur, rubs, gallop, clicks GI/Abdominal exam: Present: soft, tenderness (Moderate left-sided), normal bowel sounds. Absent: distended, guarding, rebound, rigid Back exam: Absent: CVA tenderness (R), CVA tenderness (L) Neurological exam: Present: alert, oriented X3 Skin exam: Present: warm, dry, intact, normal color. Absent: rash Course Vital Signs 12/24/19 16:52 Temperature 100.9 F H Pulse Rate 109 H Respiratory 16 Rate Blood Pressure 148/77 O2 Sat by Pulse 96 Oximetry Medical Decision Making - Medical Decision Making 74-year-old presented for fever abdominal pain. She has evidence of colitis versus diverticular sent CT. Patient does have a history of diverticulitis with resection. Patient has mild leukocytosis and fever patient was started on Levaquin and Flagyl as she has had some ALLERGY. - Lab Data Result diagrams: 12/24/19 17:26 12/24/19 17:26 Lab Results 12/24/19 12/24/19 12/24/19 Range/Units 17:26 17:26 17:26 WBC 14.6 H (3.8-10.6) k/uL RBC 4.15 (3.80-5.40) m/uL Hgb 12.6 (11.4-16.0) gm/dL Hct 39.2 (34.0-46.0) % MCV 94.4 (80.0-100.0) fL MCH 30.4 (25.0-35.0) pg MCHC 32.2 (31.0-37.0) g/dL RDW 13.1 (11.5-15.5) % Plt Count 158 (150-450) k/uL Neutrophils % 88 % Lymphocytes % 5 % Monocytes % 5 % Eosinophils % 1 % Basophils % 0 % Neutrophils # 12.9 H (1.3-7.7) k/uL Lymphocytes # 0.7 L (1.0-4.8) k/uL Monocytes # 0.8 (0-1.0) k/uL Eosinophils # 0.1 (0-0.7) k/uL Basophils # 0.0 (0-0.2) k/uL PT 9.9 (9.0-12.0) sec INR 1.0 (<1.2) APTT 24.6 (22.0-30.0) sec Sodium 138 (137-145) mmol/L Potassium 4.1 (3.5-5.1) mmol/L Chloride 107 (98-107) mmol/L Carbon Dioxide 23 (22-30) mmol/L Anion Gap 8 mmol/L BUN 12 (7-17) mg/dL Creatinine 0.85 (0.52-1.04) mg/dL Est GFR (CKD-EPI)AfAm 78 (>60 ml/min/1.73 sqM) Est GFR (CKD-EPI)NonAf 68 (>60 ml/min/1.73 sqM) Glucose 127 H (74-99) mg/dL Plasma Lactic Acid [place] (0.7-2.0) mmol/L Calcium 9.2 (8.4-10.2) mg/dL Total Bilirubin 1.0 (0.2-1.3) mg/dL AST 23 (14-36) U/L ALT 13 (4-34) U/L Alkaline Phosphatase 75 (38-126) U/L Total Protein 6.9 (6.3-8.2) g/dL Albumin 4.0 (3.5-5.0) g/dL Lipase 47 (23-300) U/L Urine Color Urine Appearance (Clear) Urine pH (5.0-8.0) Ur Specific [place] (1.001-1.035) Urine Protein (Negative) Urine Glucose (UA) (Negative) Urine Ketones (Negative) Urine Blood (Negative) Urine Nitrite (Negative) Urine Bilirubin (Negative) Urine Urobilinogen (<2.0) mg/dL Ur Leukocyte Esterase (Negative) Urine RBC (0-5) /hpf Urine WBC (0-5) /hpf Ur Squamous Epith Cells (0-4) /hpf Urine Bacteria (None) /hpf Hyaline Casts (0-2) /lpf Urine Mucus (None) /hpf 12/24/19 12/24/19 Range/Units 17:26 19:15 WBC (3.8-10.6) k/uL RBC (3.80-5.40) m/uL Hgb (11.4-16.0) gm/dL Hct (34.0-46.0) % MCV (80.0-100.0) fL MCH (25.0-35.0) pg MCHC (31.0-37.0) g/dL RDW (11.5-15.5) % Plt Count (150-450) k/uL Neutrophils % % Lymphocytes % % Monocytes % % Eosinophils % % Basophils % % Neutrophils # (1.3-7.7) k/uL Lymphocytes # (1.0-4.8) k/uL Monocytes # (0-1.0) k/uL Eosinophils # (0-0.7) k/uL Basophils # (0-0.2) k/uL PT (9.0-12.0) sec INR (<1.2) APTT (22.0-30.0) sec Sodium (137-145) mmol/L Potassium (3.5-5.1) mmol/L Chloride (98-107) mmol/L Carbon Dioxide (22-30) mmol/L Anion Gap mmol/L BUN (7-17) mg/dL Creatinine (0.52-1.04) mg/dL Est GFR (CKD-EPI)AfAm (>60 ml/min/1.73 sqM) Est GFR (CKD-EPI)NonAf (>60 ml/min/1.73 sqM) Glucose (74-99) mg/dL Plasma Lactic Acid [place] 1.3 (0.7-2.0) mmol/L Calcium (8.4-10.2) mg/dL Total Bilirubin (0.2-1.3) mg/dL AST (14-36) U/L ALT (4-34) U/L Alkaline Phosphatase (38-126) U/L Total Protein (6.3-8.2) g/dL Albumin (3.5-5.0) g/dL Lipase (23-300) U/L Urine Color Yellow Urine Appearance Cloudy H (Clear) Urine pH 5.5 (5.0-8.0) Ur Specific [place] 1.022 (1.001-1.035) Urine Protein Trace H (Negative) Urine Glucose (UA) Negative (Negative) Urine Ketones Negative (Negative) Urine Blood Negative (Negative) Urine Nitrite Negative (Negative) Urine Bilirubin Negative (Negative) Urine Urobilinogen <2.0 (<2.0) mg/dL Ur Leukocyte Esterase Large H (Negative) Urine RBC 2 (0-5) /hpf Urine WBC 6 H (0-5) /hpf Ur Squamous Epith Cells 9 H (0-4) /hpf Urine Bacteria Occasional H (None) /hpf Hyaline Casts 3 H (0-2) /lpf Urine Mucus Few H (None) /hpf Disposition Clinical Impression: Acute diverticulitis Disposition: ADMITTED IP TO THIS [facility] Condition: Fair Referrals: Sabrina Sanchez MD [Primary Care Provider] - 1-2 days
[2019-12-24 18:16] LABS: Calcium 9.2 mg/dL (8.4-10.2); Potassium 4.1 mmol/L (3.5-5.1); Total Protein 6.9 g/dL (6.3-8.2)
[2019-12-24 18:27] LABS: Partial Thromboplastin Time 24.6 sec (22.0-30.0); Prothrombin Time 9.9 sec (9.0-12.0)
--- NOTE | 2019-12-24 19:29 | CT ---
EXAMINATION TYPE: CT abdomen pelvis w con DATE OF EXAM: 12/24/2019 HISTORY: Left lower quadrant pain with fever. CT DLP: 770.9mGycm Automated Exposure Control for Dose Reduction was Utilized. CONTRAST: CT scan of the abdomen and pelvis is performed without oral but with IV Contrast, patient injected wi th 100 mL of Isovue 300. COMPARISON: None. FINDINGS: LUNG BASES: No significant abnormality is appreciated. LIVER/GB: Cholecystectomy clips. Liver is diffusely low dense suggesting fatty infiltration. Displace d clip inferior right hepatic margin axial image 40 noted. PANCREAS: No significant abnormality is seen. SPLEEN: Heterogeneous 1.4 cm hypodense lesion in spleen shows peripheral nodular enhancement with pierce tral filling as is isodense on delayed phase images. Suspect hemangioma. ADRENALS: No significant abnormality is seen. KIDNEYS: Symmetric cortical medullary uptake and excretion without hydronephrosis seen bilaterally. U rinary bladder within normal limits. BOWEL: Surgical sutures sigmoid rectal colon in the pelvis. Some scattered colonic diverticula there is mild to moderate focal fat stranding and surrounding fluid in the distal transverse colon left upp er to mid abdomen near axial image 36 just before the splenic flexure. No free air. No well-formed fl uid collection or abscess. There is hernia defect containing portion of mid transverse colon axial im age 58 and mesenteric fat. Normal-appearing appendix in the right upper pelvis inferior to cecum. No suspicious small or large bowel dilatation. UTERUS/[place]NEXA: Uterus surgically absent or markedly atrophic. LYMPH NODES: No greater than 1cm abdominal or pelvic lymph nodes are appreciated. OSSEOUS STRUCTURES: Postsurgical changes lumbosacral junction with posterior interpedicular screws bi laterally. Near complete ossific fusion at this level. OTHER: No significant additional abnormality is seen. IMPRESSION: Focal mild to moderate uncomplicated acute colitis involving the distal transverse colon in the left upper to mid abdomen on a background of diffuse colonic diverticulosis and prior distal c olonic surgery.
[2019-12-24 19:31] LABS: Appearance,Urine Cloudy (Clear); Bacteria,Urine Occasional /hpf; Bilirubin,Urine Negative (Negative); Blood,Urine Negative (Negative); Color,Urine Yellow; Glucose,Urine (UA) Negative (Negative); Hyaline Casts,Urine 3 /lpf (0-2); Ketones,Urine Negative (Negative); Leukocyte Esterase,Urine Large (Negative); Mucus,Urine Few /hpf; Nitrite,Urine Negative (Negative); PH, Urine 5.5 (5.0-8.0); Protein,Urine Trace (Negative); RBC,Urine 2 /hpf (0-5); Specific Gravity,Urine 1.022 (1.001-1.035); Squamous Epithelial Cell,Urine 9 /hpf (0-4); Urobilinogen,Urine <2.0 mg/dL (<2.0); WBC,Urine 6 /hpf (0-5)
[2019-12-24] MEDS ORDERED: metroNIDAZOLE-NS PMX 500 MG in SALINE 1 100ML.BAG IVPB STA (19:32)
[2019-12-24] MEDS ORDERED: LEVOFLOXACIN 750MG-D5W PMX 750 MG in DEXTROSE/WATER 1 150ML.BAG IVPB STA (19:32)
[2019-12-24] MEDS ORDERED: HYDROmorphone 0.5 MG/0.5 ML SYRINGE IVP STA (19:51)
[2019-12-24] MEDS ORDERED: KETOROLAC 15 MG/ML 1 ML VIAL IVP PRN (19:53)
[2019-12-24] MEDS ORDERED: HYDROmorphone 0.5 MG/0.5 ML SYRINGE IVP PRN (19:53)
[2019-12-24] MEDS ORDERED: NALOXONE 0.4 MG/ML 1 ML VIAL IV PRN (19:53)
[2019-12-24 20:32] VITALS: RESP 18
[2019-12-24] MEDS: ONDANSETRON 4 MG/2 ML VIAL IVP PRN (22:52)
[2019-12-24] MEDS: SODIUM CHLORIDE 0.9% 1,000 ML IV SCH (22:52)
[2019-12-25] MEDS: SODIUM CHLORIDE 0.9% 1,000 ML IV SCH ×3 (08:49→20:05)
[2019-12-25] MEDS: ONDANSETRON 4 MG/2 ML VIAL IVP PRN ×2 (08:50→19:58)
[2019-12-25] MEDS: FAMOTIDINE 20 MG/2 ML VIAL IV SCH ×2 (08:50→20:02)
[2019-12-25] MEDS ORDERED: NITROGLYCERIN SL TABS 0.4 MG TAB SUBLINGUAL PRN (09:03)
[2019-12-25] MEDS: ASPIRIN 81 MG PO SCH (09:09)
[2019-12-25] MEDS: MONTELUKAST 10 MG TAB PO SCH (09:09)
[2019-12-25] MEDS ORDERED: traMADol 50 MG TAB PO PRN (09:10)
[2019-12-25] MEDS ORDERED: NON FORMULARY DRUG (Biotin [Biotin] 5,000 MCG) PO SCH (09:15)
[2019-12-25] MEDS ORDERED: PROCHLORPERAZINE 10 MG TAB PO PRN (10:38)
[2019-12-25] MEDS: METOPROLOL TARTRATE 12.5 MG TAB PO SCH ×2 (11:07→20:02)
[2019-12-25] MEDS: metroNIDAZOLE-NS PMX 500 MG in SALINE 1 100ML.BAG IVPB SCH ×3 (11:07→23:53)
[2019-12-25] MEDS: lisinopriL 10 MG TAB PO SCH (11:07)
--- NOTE | 2019-12-25 13:04 | P.HPIM ---
History of Present Illness H&P Date: 12/25/19 Chief Complaint: Left-sided abdominal pain Ms. Booker is a 73-year-old female with a past medical history of hypertension, bowel resection, cholecystectomy, hysterectomy, 2 back surgeries coming into the hospital with a chief complaint of left-sided abdominal pain. Patient states that the abdominal pain started 1 today days prior to coming in. It is mostly located in the left side with the pain radiating to all over the belly. Patient states that she has bowel resection done and has the abdominal pain on and off, but this time the pain was persistent. She also reported to have chills and was having fevers. She denied having any vomiting but felt nauseous. No diarrhea or constipation, no blood in the stool. Patient denies having any dysuria or hematuria. She denies having any back pain or flank pain. Patient denies having any chest pain or palpitations. No cough or difficulty in breathing. She denies having any headache, visual changes or weakness of her extremities. No other active complaints. In the emergency room patient had CT of the abdomen and pelvis showing mild to moderate uncomplicated acute colitis involving the distal transverse colon in the left upper to mid abdomen on a background of diffuse colonic diverticulosis and prior distal colonic surgery. At the time of admission patient had a fever of 100.9, tachycardic at 109, blood pressure 148/77, saturating at 99% on room air. On reviewing the labs she was found to have a white count of 14.6, hemoglobin 12.6, platelets 158. Electrolytes sodium 138, potassium 4.1, chloride 107, bicarbonate 23, BUS 12, creatinine 0.85. Urine is positive for large leukocyte esterase and occasional bacteria negative for nitrites. Review of Systems REVIEW OF SYSTEMS: CONSTITUTIONAL: Mild fever HEENT: No recent visual problems or hearing problems. Denied any sore throat. CARDIOVASCULAR: No chest pain, palpitations, orthopnea or PND PULMONARY: No cough or difficulty in breathing GASTROINTESTINAL: As per HPI NEUROLOGICAL: No headaches, no weakness, no numbness. HEMATOLOGICAL: Denies any bleeding or petechiae. GENITOURINARY: Denies any burning micturition, frequency, or urgency. MUSCULOSKELETAL/RHEUMATOLOGICAL: No joint swelling or pain ENDOCRINE: Denies any polyuria or polydipsia. The rest of the 13-point review of systems is negative. Past Medical History Past Medical History: Hypertension Additional Past Medical History / Comment(s): sinus allergies History of Any Multi-Drug Resistant Organisms: None Reported Past Surgical History: Bowel Resection, Cholecystectomy, Hysterectomy Additional Past Surgical History / Comment(s): two back surgeries Past Psychological History: No Psychological Hx Reported Smoking Status: Never smoker Past Alcohol Use History: None Reported Past Drug Use History: None Reported - Past Family History Mother Family Medical History: CVA/TIA Sister(s) Family Medical History: Congestive Heart Failure (CHF) Additional Family Medical History / Comment(s): Angina Medications and Allergies Home Medications Medication Instructions Recorded Confirmed Type Montelukast Sodium [Singulair] 10 mg PO DAILY 03/25/17 12/24/19 History Aspirin EC [Ecotrin Low Dose] 81 mg PO DAILY #30 tablet.dr 12/05/19 12/24/19 Rx Nitroglycerin Sl Tabs [Nitrostat] 0.4 mg SUBLINGUAL Q5M PRN #30 tab 12/05/19 12/24/19 Rx lisinopriL [Zestril] 10 mg PO DAILY 30 Days #30 tab 12/05/19 12/24/19 Rx Biotin 5,000 mcg PO DAILY 12/24/19 12/24/19 History Metoprolol Tartrate [Lopressor] 12.5 mg PO BID 12/24/19 12/24/19 History Allergies Allergy/AdvReac Type Severity Reaction Status Date / Time benzocaine Allergy Unknown Verified 12/24/19 20:36 [From Chloraseptic Sore Throat] menthol Allergy Unknown Verified 12/24/19 20:36 [From Chloraseptic Sore Throat] Penicillins Allergy Unknown Verified 12/24/19 20:36 Sulfa (Sulfonamide Allergy Unknown Verified 12/24/19 20:36 Antibiotics) Physical Exam Vitals: Vital Signs Temp Pulse Pulse Resp BP BP Pulse Ox 12/25/19 05:04 97.9 F 63 18 115/63 99 12/25/19 00:02 146/70 12/24/19 21:30 97.5 F L 91 18 186/76 99 12/24/19 20:31 97.9 F 77 18 140/53 96 12/24/19 16:52 100.9 F H 109 H 16 148/77 96 Intake and Output 08/12/20 08/13/20 08/13/20 22:59 06:59 14:59 Other: Voiding Method Toilet # Voids 1 1 Weight 72.575 kg PHYSICAL EXAMINATION: GENERAL: appears to be in no acute distress. HEENT: Pupils are round and equally reacting to light. EOMI. no scleral icterus. No conjunctival pallor. Normocephalic, atraumatic. CARDIOVASCULAR: S1 and S2 heard. No additional sounds. PULMONARY: Bilateral breath sounds are positive. No wheeze or crackles. ABDOMEN: Soft, positive for tenderness in the left lower and upper quadrants. Normal bowel sounds. MUSCULOSKELETAL: No joint swelling or deformity. EXTREMITIES: No cyanosis, clubbing, or pedal edema. NEUROLOGICAL: Alert awake oriented 3, Gross neurological examination did not reveal any focal deficits. SKIN: No rash Results CBC & Chem 7: 12/24/19 17:26 12/24/19 17:26 Labs: Abnormal Lab Results - Last 24 Hours (Table) 12/24/19 12/24/19 12/24/19 Range/Units 17:26 17:26 19:15 WBC 14.6 H (3.8-10.6) k/uL Neutrophils # 12.9 H (1.3-7.7) k/uL Lymphocytes # 0.7 L (1.0-4.8) k/uL Glucose 127 H (74-99) mg/dL Urine Appearance Cloudy H (Clear) Urine Protein Trace H (Negative) Ur Leukocyte Esterase Large H (Negative) Urine WBC 6 H (0-5) /hpf Ur Squamous Epith Cells 9 H (0-4) /hpf Urine Bacteria Occasional H (None) /hpf Hyaline Casts 3 H (0-2) /lpf Urine Mucus Few H (None) /hpf Thrombosis Risk Factor Assmnt - Choose All That Apply Any of the Below Risk Factors Present?: Yes Each Factor Represents 1 point: Obesity (BMI >25) Each Risk Factor Represents 3 Points: Age 75 years or older Thrombosis Risk Factor Assessment Total Risk Factor Score: 4 Thrombosis Risk Factor Assessment Level: Moderate Risk Assessment and Plan Assessment: ASSESSMENT Sepsis secondary to colonic diverticulitis Left-sided colonic diverticulitis Hypertension History of bowel resection History of cholecystectomy History of hysterectomy History of 2 back surgeries PLAN: Patient was given a dose of Zofran, levofloxacin and Flagyl, that will be continued. CAT scan shows mild diverticulitis, patient states that her symptoms improved since coming in. If her symptoms worsen, we will consult surgery otherwise will continue with the current medication regimen. Patient has been restarted on her home medications. Anticipate discharge in the next 24 hours.
[2019-12-25] MEDS ORDERED: LEVOFLOXACIN 750 MG TAB PO SCH (21:00)
[2019-12-25] MEDS ORDERED: METOCLOPRAMIDE 5 MG/ML 2 ML VIAL IVP STA (22:13)
[2019-12-25] MEDS ORDERED: ONDANSETRON 4 MG/2 ML VIAL IVP PRN (22:14)
[2019-12-26] MEDS: SODIUM CHLORIDE 0.9% 1,000 ML IV SCH (06:00)
[2019-12-26] MEDS: lisinopriL 10 MG TAB PO SCH (08:32)
[2019-12-26] MEDS: METOPROLOL TARTRATE 12.5 MG TAB PO SCH (08:32)
[2019-12-26] MEDS: MONTELUKAST 10 MG TAB PO SCH (08:33)
[2019-12-26] MEDS: ASPIRIN 81 MG PO SCH (08:33)
[2019-12-26] MEDS: FAMOTIDINE 20 MG/2 ML VIAL IV SCH (08:33)
[2019-12-26] MEDS: metroNIDAZOLE-NS PMX 500 MG in SALINE 1 100ML.BAG IVPB SCH ×2 (08:34→16:32)
[2019-12-26 08:55] LABS: Basophils % (A) 0 %; Eosinophils # (A) 0.1 k/uL (0-0.7); Eosinophils % (A) 2 %; HCT 32.4 % (34.0-46.0); HGB 10.4 gm/dL (11.4-16.0); Lymphocytes # (A) 0.9 k/uL (1.0-4.8); Lymphocytes % (A) 13 %; MCH 30.8 pg (25.0-35.0); MCHC 32.1 g/dL (31.0-37.0); MCV 95.8 fL (80.0-100.0); Mean Platelet Volume 9.6; Monocytes # (A) 0.3 k/uL (0-1.0); Monocytes % (A) 4 %; Neutrophils # (A) 5.1 k/uL (1.3-7.7); Neutrophils % (A) 78 %; Platelet Count 129 k/uL (150-450); RBC 3.39 m/uL (3.80-5.40); RDW 12.9 % (11.5-15.5); WBC 6.5 k/uL (3.8-10.6)
[2019-12-26] MEDS ORDERED: ENOXAPARIN 40 MG/0.4 ML SYRINGE SQ SCH (09:00)
[2019-12-26 09:01] LABS: Calcium 8.4 mg/dL (8.4-10.2)
[2019-12-26 11:34] VITALS: BP 170/72; PULSE 70; TEMP 97.6
--- NOTE | 2019-12-26 16:22 | P.GSCN ---
History of Present Illness Consult date: 12/26/19 Reason for Consult: Diverticulitis History of present illness: 74-year-old female with personal history of sigmoid diverticulitis. Underwent s igmoid resection approximate 20 years ago. Came to the hospital complaining of left-sided abdominal pain. This began about 4 days ago. She has had both nausea and vomiting. Her pain is much improved. Underwent recent CAT scan showing diverticulitis involving the distal transverse colon. No evidence of extraluminal air or contrast extravasation. No abscess. Doing much better at this time. She is hoping to go home today. Last colonoscopy 5-10 years ago. Review of Systems The patient denies any acute changes in vision or hearing, no dysphagia or odynophagia, no chest pain or shortness of breath, no dysuria or hematuria, no headache, no runny nose, no rectal bleeding or melena, no unexplained weight loss Past Medical History Past Medical History: Hypertension Additional Past Medical History / Comment(s): sinus allergies History of Any Multi-Drug Resistant Organisms: None Reported Past Surgical History: Bowel Resection, Cholecystectomy, Hysterectomy Additional Past Surgical History / Comment(s): two back surgeries Past Psychological History: No Psychological Hx Reported Smoking Status: Never smoker Past Alcohol Use History: None Reported Past Drug Use History: None Reported - Past Family History Mother Family Medical History: CVA/TIA Sister(s) Family Medical History: Congestive Heart Failure (CHF) Additional Family Medical History / Comment(s): Angina Medications and Allergies Home Medications Medication Instructions Recorded Confirmed Type Montelukast Sodium [Singulair] 10 mg PO DAILY 03/25/17 12/24/19 History Aspirin EC [Ecotrin Low Dose] 81 mg PO DAILY #30 tablet. 12/05/19 12/24/19 Rx Nitroglycerin Sl Tabs [Nitrostat] 0.4 mg SUBLINGUAL Q5M PRN #30 tab 12/05/19 12/24/19 Rx lisinopriL [Zestril] 10 mg PO DAILY 30 Days #30 tab 12/05/19 12/24/19 Rx Biotin 5,000 mcg PO DAILY 12/24/19 12/24/19 History Metoprolol Tartrate [Lopressor] 12.5 mg PO BID 12/24/19 12/24/19 History Allergies Allergy/AdvReac Type Severity Reaction Status Date / Time benzocaine Allergy Unknown Verified 12/24/19 20:36 [From Chloraseptic Sore Throat] menthol Allergy Unknown Verified 12/24/19 20:36 [From Chloraseptic Sore Throat] Penicillins Allergy Unknown Verified 12/24/19 20:36 Sulfa (Sulfonamide Allergy Unknown Verified 12/24/19 20:36 Antibiotics) Surgical - Exam Vital Signs Temp Pulse Resp BP Pulse Ox 100.9 F H 109 H 16 148/77 96 12/24/19 16:52 12/24/19 16:52 12/24/19 16:52 12/24/19 16:52 12/24/19 16:52 Physical exam: General: Well-developed, well-nourished HEENT: Normocephalic, sclerae nonicteric Abdomen: Mild left upper quadrant tenderness, nondistended Extremities: No edema Neuro: Alert and oriented Results - Labs 12/26/19 08:22 12/26/19 08:22 Abnormal Lab Results - Last 24 Hours (Table) 12/26/19 12/26/19 Range/Units 08:22 08:22 RBC 3.39 L (3.80-5.40) m/uL Hgb 10.4 L (11.4-16.0) gm/dL Hct 32.4 L (34.0-46.0) % Plt Count 129 L (150-450) k/uL Lymphocytes # 0.9 L (1.0-4.8) k/uL Chloride 113 H (98-107) mmol/L Glucose 110 H (74-99) mg/dL Microbiology - Last 24 Hours (Table) 12/24/19 20:19 Blood Culture - Preliminary Blood No Growth after 24 hours Diabetes panel 12/26/19 Range/Units 08:22 Sodium 140 (137-145) mmol/L Potassium 4.0 (3.5-5.1) mmol/L Chloride 113 H (98-107) mmol/L Carbon Dioxide 23 (22-30) mmol/L BUN 9 (7-17) mg/dL Creatinine 0.87 (0.52-1.04) mg/dL Glucose 110 H (74-99) mg/dL Calcium 8.4 (8.4-10.2) mg/dL Calcium panel 12/26/19 Range/Units 08:22 Calcium 8.4 (8.4-10.2) mg/dL Pituitary panel 12/26/19 Range/Units 08:22 Sodium 140 (137-145) mmol/L Potassium 4.0 (3.5-5.1) mmol/L Chloride 113 H (98-107) mmol/L Carbon Dioxide 23 (22-30) mmol/L BUN 9 (7-17) mg/dL Creatinine 0.87 (0.52-1.04) mg/dL Glucose 110 H (74-99) mg/dL Calcium 8.4 (8.4-10.2) mg/dL Adrenal panel 12/26/19 Range/Units 08:22 Sodium 140 (137-145) mmol/L Potassium 4.0 (3.5-5.1) mmol/L Chloride 113 H (98-107) mmol/L Carbon Dioxide 23 (22-30) mmol/L BUN 9 (7-17) mg/dL Creatinine 0.87 (0.52-1.04) mg/dL Glucose 110 H (74-99) mg/dL Calcium 8.4 (8.4-10.2) mg/dL Assessment and Plan (1) Acute diverticulitis Narrative/Plan: Continue antibiotics. May discharge from my point of view. Follow-up in the office in 3 weeks. Will require colonoscopy in approximately 8 weeks. Current Visit: Yes Status: Acute Code(s): K57.92 - DVTRCLI OF INTEST, PART UNSP, W/O PERF OR ABSCESS W/O BLEED SNOMED Code(s): 022010718
--- NOTE | 2019-12-26 16:59 | P.DS ---
Providers Date of admission: 12/24/19 19:54 Expected date of discharge: 12/26/19 Attending physician: Christina Marshall Consults: 12/25/19 22:15 Consult Physician Routine Consulting Provider: Kevin Sanchez Consult Reason/Comments: Acute Diverticulitis, N/V, pain, hx of bowel resection Do you want consulting provider notified?: Yes, Notify in am Primary care physician: Sabrina Sanchez [facility] Course: HPI - Ms. Booker is a 73-year-old female with a past medical history of hypertension, bowel resection, cholecystectomy, hysterectomy, 2 back surgeries coming into the hospital with a chief complaint of left-sided abdominal pain. Patient states that the abdominal pain started 1 today days prior to coming in. It is mostly located in the left side with the pain radiating to all over the belly. Patient states that she has bowel resection done and has the abdominal pain on and off, but this time the pain was persistent. She also reported to have chills and was having fevers. She denied having any vomiting but felt nauseous. No diarrhea or constipation, no blood in the stool. Patient denies having any dysuria or hematuria. She denies having any back pain or flank pain. Patient denies having any chest pain or palpitations. No cough or difficulty in breathing. She denies having any headache, visual changes or weakness of her extremities. No other active complaints. In the emergency room patient had CT of the abdomen and pelvis showing mild to moderate uncomplicated acute colitis involving the distal transverse colon in the left upper to mid abdomen on a background of diffuse colonic diverticulosis and prior distal colonic surgery. At the time of admission patient had a fever of 100.9, tachycardic at 109, blood pressure 148/77, saturating at 99% on room air. On reviewing the labs she was found to have a white count of 14.6, hemoglobin 12.6, platelets 158. Electrolytes sodium 138, potassium 4.1, chloride 107, bicarbonate 23, BUS 12, creatinine 0.85. Urine is positive for large leukocyte esterase and occasional bacteria negative for nitrites. Hospital course - patient was started on levofloxacin and Flagyl, her symptoms of abdominal pain improved significantly. Patient had a bowel movement this morning denied having any blood. Surgical services have been consulted and no surgical intervention was planned and okay for discharge. Patient is very eager to go home. Levaquin IV was sent to her pharmacy by error, patient is advised to take only Levaquin 750 mg daily, Flagyl 500 mg 3 times a day for 10 days. The scripts have been sent to the pharmacy. Pharmacy informed about the error. DISCHARGE DIAGNOSIS Sepsis secondary to colonic diverticulitis Left-sided colonic diverticulitis Hypertension History of bowel resection History of cholecystectomy History of hysterectomy History of 2 back surgeries Follow-up: Patient is advised to follow up with her primary care physician in 2- 3 days. Also discussed with her that in case her symptoms worsen to come back to the hospital. More than 35 minutes spent towards the discharge of the patient. Patient Condition at Discharge: Fair Plan - Discharge Summary New Discharge Prescriptions: New metroNIDAZOLE [Flagyl] 500 mg PO TID #30 tab Levofloxacin [Levaquin] 750 mg PO DAILY 10 Days #10 tab Continue Montelukast Sodium [Singulair] 10 mg PO DAILY Aspirin EC [Ecotrin Low Dose] 81 mg PO DAILY #30 tablet. Nitroglycerin Sl Tabs [Nitrostat] 0.4 mg SUBLINGUAL Q5M PRN #30 tab PRN Reason: Chest Pain lisinopriL [Zestril] 10 mg PO DAILY 30 Days #30 tab Metoprolol Tartrate [Lopressor] 12.5 mg PO BID Biotin 5,000 mcg PO DAILY Discharge Medication List Montelukast Sodium [Singulair] 10 mg PO DAILY 03/25/17 [History] Aspirin EC [Ecotrin Low Dose] 81 mg PO DAILY #30 tablet. 12/05/19 [Rx] Nitroglycerin Sl Tabs [Nitrostat] 0.4 mg SUBLINGUAL Q5M PRN #30 tab 12/05/19 [Rx] lisinopriL [Zestril] 10 mg PO DAILY 30 Days #30 tab 12/05/19 [Rx] Biotin 5,000 mcg PO DAILY 12/24/19 [History] Metoprolol Tartrate [Lopressor] 12.5 mg PO BID 12/24/19 [History] Levofloxacin [Levaquin] 750 mg PO DAILY 10 Days #10 tab 12/26/19 [Rx] metroNIDAZOLE [Flagyl] 500 mg PO TID #30 tab 12/26/19 [Rx] Follow up Appointment(s)/Referral(s): Kevin Sanchez MD [Medical Doctor] - 01/15/20 10:15 am Sabrina Sanchez MD [Primary Care Provider] - 1-2 days (please call for appointment, office currently closed.) Patient Instructions/Handouts: Diverticulitis (DC), Diverticulosis (DC) Discharge Disposition: HOME SELF-CARE
[2019-12-27] MEDS ORDERED: FAMOTIDINE 20 MG/2 ML VIAL IV SCH (09:00)
[2019-12-27] MEDS ORDERED: LEVOFLOXACIN 750 MG TAB PO SCH (21:00)
== END 2019-12-26 17:04 | disposition home or self-care (01) | DRG 872 ==
LOC: EC 16:48 → 5NMEDONC 19:54
PROVIDERS: ADMIT Hospitalist; ATTEND Hospitalist
DX: A41.9 Sepsis, unspecified organism (principal); K57.32 Diverticulitis of large intestine without perforation or abscess without bleeding; I10 Essential (primary) hypertension; K52.9 Noninfective gastroenteritis and colitis, unspecified; Z79.899 Other long term (current) drug therapy; Z79.82 Long term (current) use of aspirin; Z88.0 Allergy status to penicillin; Z88.2 Allergy status to sulfonamides; Z88.8 Allergy status to other drugs, medicaments and biological substances; Z98.890 Other specified postprocedural states; Z90.710 Acquired absence of both cervix and uterus; Z82.3 Family history of stroke; Z82.49 Family history of ischemic heart disease and other diseases of the circulatory system; Z90.49 Acquired absence of other specified parts of digestive tract
CPT/HCPCS: 36415; 74177; 80048; 80053; 81001; 83605; 83690; 85025; 85610; 85730; 87040; 96361; 96365; 96375; 96376; 99285

== ENCOUNTER → 2019-12-29 | Outpatient (CLI) | payer MEDICARE ==
--- NOTE | 2019-12-29 22:37 | US ---
EXAMINATION TYPE: US extremity nonvasc complete LT DATE OF EXAM: 12/29/2019 COMPARISON: NONE CLINICAL HISTORY: 74-year-old female Left lower extremity; S86.002A; M79.662. TECHNIQUE: Multiple sonographic images of the posterior left ankle for assessment of the Achilles ten don. FINDINGS: The Achilles tendon is intact with normal contour and caliber. There is no tear identified. Mild effusion within the retrocalcaneal bursa. IMPRESSION: 1. Normal sonographic appearance of the left Achilles tendon. 2. Mild retrocalcaneal bursal effusion is nonspecific.
--- NOTE | 2019-12-30 06:57 | US ---
EXAMINATION TYPE: US venous doppler duplex LE LT DATE OF EXAM: 12/29/2019 4:11 PM COMPARISON: NONE CLINICAL HISTORY: Pain. SIDE PERFORMED: Left TECHNIQUE: The lower extremity deep venous system is examined utilizing real time linear array sonog jessi with graded compression, doppler sonography and color-flow sonography. VESSELS IMAGED: External Iliac Vein (EIV) Common Femoral Vein Deep Femoral Vein Greater Saphenous Vein * Femoral Vein Popliteal Vein Small Saphenous Vein * Proximal Calf Veins (* superficial vessels) Left Leg: Negative for DVT Grayscale, color doppler, spectral doppler imaging performed of the deep veins of the left lower extr emity. There is normal flow, compressibility, vascular waveforms. IMPRESSION: No ultrasound evidence for acute DVT in the left lower extremity.
== END | disposition home or self-care (01) ==
LOC: RADUSWWP 15:28
PROVIDERS: ATTEND Physician Assistant Medical
DX: M79.662 Pain in left lower leg (principal); M25.475 Effusion, left foot

== ENCOUNTER → 2020-04-13 | Day surgery (SDC) | payer MEDICARE ==
[2020-04-06 15:09] VITALS: BMI 28.0
[~2020-04-13] MED LIST: LACTATED RINGERS 1,000 ML IV ONE; LACTATED RINGERS 1,000 ML IV SCH; LIDOCAINE 1% (10MG/ML) FOR IV START INTRADERMA PRN; PROPOFOL 10 MG/ML 20 ML VIAL IV ONE
[2020-04-13 10:24] VITALS: TEMP 97.8
--- NOTE | 2020-04-13 11:05 | P.GSHP ---
History of Present Illness H&P Date: 04/13/20 Chief Complaint: Change in bowel habits 74-year-old female seen in the office recently. Recently had episode of diverticulitis. History of previous sigmoid resection for diverticulitis previously. Last colonoscopy over 10 years ago patient says. Past Medical History Past Medical History: Hypertension Additional Past Medical History / Comment(s): sinus allergies. lt leg swelling on occasion. "pouching in bowel" History of Any Multi-Drug Resistant Organisms: None Reported Past Surgical History: Back Surgery, Bowel Resection, Cholecystectomy, Heart Cat heterization, Hysterectomy Additional Past Surgical History / Comment(s): two back surgeries Past Anesthesia/Blood Transfusion Reactions: Previous Problems w/ Anesthesia, Motion Sickness Additional Past Anesthesia/Blood Transfusion Reaction / Comment(s): ether caused N/V Smoking Status: Never smoker - Past Family History Mother Family Medical History: CVA/TIA Sister(s) Family Medical History: Congestive Heart Failure (CHF) Additional Family Medical History / Comment(s): Angina Medications and Allergies Home Medications Medication Instructions Recorded Confirmed Type Montelukast Sodium [Singulair] 10 mg PO DAILY 03/25/17 04/06/20 History Aspirin EC [Ecotrin Low Dose] 81 mg PO DAILY #30 tablet. 12/05/19 04/06/20 Rx Nitroglycerin Sl Tabs [Nitrostat] 0.4 mg SUBLINGUAL Q5M PRN #30 tab 12/05/19 04/06/20 Rx lisinopriL [Zestril] 10 mg PO DAILY 30 Days #30 tab 12/05/19 04/06/20 Rx Biotin 5,000 mcg PO DAILY 12/24/19 04/06/20 History Metoprolol Tartrate [Lopressor] 12.5 mg PO BID 12/24/19 04/06/20 History diphenhydrAMINE [Benadryl] 25 mg PO DAILY PRN 04/06/20 04/06/20 History hydroCHLOROthiazide 25 mg PO DAILY PRN 04/06/20 04/06/20 History Allergies Allergy/AdvReac Type Severity Reaction Status Date / Time menthol Allergy Unknown Verified 04/06/20 14:55 [From Chloraseptic Sore Throat] Penicillins Allergy Unknown Verified 04/06/20 14:55 Sulfa (Sulfonamide Allergy Unknown Verified 04/06/20 14:55 Antibiotics) levofloxacin [From Levaquin] AdvReac Abdominal Verified 04/06/20 14:55 Pain, N/V metronidazole AdvReac Abdominal Verified 04/06/20 14:55 Pain, N/V Surgical - Exam Vital Signs Temp Pulse Resp BP Pulse Ox 97.8 F 68 18 168/89 97 04/13/20 10:23 04/13/20 10:23 04/13/20 10:23 04/13/20 10:23 04/13/20 10:23 Physical exam: General: Well-developed, well-nourished HEENT: Normocephalic, sclerae nonicteric Abdomen: Nontender, nondistended Extremities: No edema Neuro: Alert and oriented Assessment and Plan (1) Change in bowel habits Narrative/Plan: Will proceed with colonoscopy Current Visit: Yes Status: Acute Code(s): R19.4 - CHANGE IN BOWEL HABIT SNOMED Code(s): 977670022
--- NOTE | 2020-04-13 11:16 | P.PCN ---
Date of Procedure: 04/13/20 Procedure(s) Performed: PREOPERATIVE DIAGNOSIS: Change in bowel habits POSTOPERATIVE DIAGNOSIS: Diverticulosis PROCEDURE: Colonoscopy ANESTHESIA: MAC SURGEON: Kevin Sanchez M.D. SPECIMENS: None ENDOSCOPIC PROCEDURE: The patient was placed on the endoscopy table in the left decubitus position. The Olympus colonoscope was inserted into the anus and passed under direct visualization to the base of the cecum. The appendiceal orifice was visualized. From that point the scope was slowly withdrawn inspe cting all surfaces carefully. There were no neoplastic inflammatory or polypoid lesions throughout the cecum, ascending, transverse, descending and rectum. There was residual scattered diverticulosis noted throughout the colon. The previous colorectal anastomosis was widely patent. Digital rectal examination was normal. The patient was taken to the recovery room in stable condition per anesthesia guidelines. RECOMMENDATIONS: Resume diet. Increase fiber. Follow colonoscopy today.
[2020-04-13 11:37] VITALS: BP 98/64; PULSE 66; RESP 16
== END ==
LOC: ORWHC2ENDO 10:00
PROVIDERS: ATTEND Surgery
DX: K57.30 Diverticulosis of large intestine without perforation or abscess without bleeding (principal); I10 Essential (primary) hypertension; Z90.49 Acquired absence of other specified parts of digestive tract; Z90.710 Acquired absence of both cervix and uterus; Z98.890 Other specified postprocedural states; Z82.3 Family history of stroke; Z82.49 Family history of ischemic heart disease and other diseases of the circulatory system; Z79.899 Other long term (current) drug therapy; Z88.1 Allergy status to other antibiotic agents; Z88.0 Allergy status to penicillin; Z88.2 Allergy status to sulfonamides; Z88.8 Allergy status to other drugs, medicaments and biological substances; Z79.82 Long term (current) use of aspirin; Z87.19 Personal history of other diseases of the digestive system
CPT/HCPCS: 45378; J2704

== ENCOUNTER 2020-10-30 19:59 | Emergency (ER) | payer MEDICARE ==
[2020-10-30 20:03] VITALS: TEMP 98.2
[2020-10-30] MEDS ORDERED: SODIUM CHLORIDE 0.9% 500 ML 500 ML IV STA (20:04)
--- NOTE | 2020-10-30 20:32 | ED ---
General Adult HPI - General Chief complaint: Recheck/Abnormal Lab/Rx Stated complaint: dehydrated,back pain Time Seen by Provider: 10/30/20 20:04 Source: patient, family Mode of arrival: wheelchair Limitations: no limitations - History of Present Illness Initial comments: Dictation was produced using [employer] dictation software. please excuse any gra mmatical, word or spelling errors. Chief Complaint: 75-year-old female with past medical history of lower extremity edema, hypertension since the emergency Department with left-sided flank pain History of Present Illness: 75-year-old female she is been on Lasix pills for several months. Over the last couple days her Lasix was increased to 50 mg. She states that over the last couple days she began developing left-sided flank pain. She states that it severe and comes in waves. She does not have any diarrhea. She does have nausea no vomiting. She didn't she is dehydrated. She has been having some left lower extremity cramps. She has no history of kidney stones. Denies any obvious abnormalities with her urine. The ROS documented in this emergency department record has been reviewed and confirmed by me. Those systems with pertinent positive or negative responses have been documented in the HPI. All other systems are other negative and/or noncontributory. PHYSICAL EXAM: General Impression: Alert and oriented x3, not in acute distress HEENT: Normocephalic atraumatic, extra-ocular movements intact, pupils equal and reactive to light bilaterally, extremities membranes Cardiovascular: Heart regular rate and rhythm Chest: Able to complete full sentences, no retractions, no tachypnea Abdomen: abdomen soft, mild tenderness to the left lateral upper abdomen, non- distended, no organomegaly Musculoskeletal: Pulses present and equal in all extremities, no peripheral edema Motor: no focal deficits noted Neurological: CN II-XII grossly intact, no focal motor or sensory deficits noted Skin: Intact with no visualized rashes Psych: Normal affect and mood ED course: 75-year-old female presents emergency department with left abdominal and left flank pain. Vital signs upon arrival shows her to 116, worse vital signs within acceptable limits. Laboratory evaluation obtained. CBC shows leukocytosis of 16.9. Metabolic within acceptable limits. Urinalysis is negative for any acute processes. Computed tomography scan of the abdomen and pelvis was obtained showing acute diverticulitis with no couple occasions. Disposition options were discussed with patient patient requests to be discharge. She states that she can tolerate oral. She understands the risk of being discharged. She will come back to the emergency department if she has any worsening symptoms. Patient given Augmentin. Her ALLERGY list were was reviewed. Patient's ALLERGY list includes penicillin, sulfa, Levaquin and Flagyl. Patient states that she feels hot whenever she takes penicillin. She does not report any symptoms of anaphylaxis. The rest of the medications that she could qualify fours she states that she has not had a true ALLERGIC reaction but instead more of stomach discomfort. Patient is agreeable to plan. She is also given prescription for antiemetics - Related Data Home Medications Medication Instructions Recorded Confirmed Montelukast Sodium [Singulair] 10 mg PO DAILY 03/25/17 04/06/20 Biotin 5,000 mcg PO DAILY 12/24/19 04/06/20 Metoprolol Tartrate [Lopressor] 12.5 mg PO BID 12/24/19 04/06/20 diphenhydrAMINE [Benadryl] 25 mg PO DAILY PRN 04/06/20 04/06/20 hydroCHLOROthiazide 25 mg PO DAILY PRN 04/06/20 04/06/20 Previous Rx's Medication Instructions Recorded Aspirin EC [Ecotrin Low Dose] 81 mg PO DAILY #30 tablet. 12/05/19 Nitroglycerin Sl Tabs [Nitrostat] 0.4 mg SUBLINGUAL Q5M PRN #30 tab 12/05/19 lisinopriL [Zestril] 10 mg PO DAILY 30 Days #30 tab 12/05/19 Amoxic-Pot Clav 875-125Mg 1 tab PO BID 14 Days #28 tab 10/30/20 [Augmentin 875-125] Ondansetron Odt [Zofran Odt] 4 mg PO Q8HR PRN #12 tab 10/30/20 Allergies Allergy/AdvReac Type Severity Reaction Status Date / Time menthol Allergy Unknown Verified 10/30/20 20:03 [From Chloraseptic Sore Throat] Penicillins Allergy Unknown Verified 10/30/20 20:03 Sulfa (Sulfonamide Allergy Unknown Verified 10/30/20 20:03 Antibiotics) levofloxacin [From Levaquin] AdvReac Abdominal Verified 10/30/20 20:03 Pain, N/V metronidazole AdvReac Abdominal Verified 10/30/20 20:03 Pain, N/V Review of Systems ROS Statement: Those systems with pertinent positive or pertinent negative responses have been documented in the HPI. ROS Other: All systems not noted in ROS Statement are negative. Past Medical History Past Medical History: Hypertension Additional Past Medical History / Comment(s): sinus allergies. lt leg swelling on occasion. "pouching in bowel" History of Any Multi-Drug Resistant Organisms: None Reported Past Surgical History: Back Surgery, Bowel Resection, Cholecystectomy, Heart Catheterization, Hysterectomy Additional Past Surgical History / Comment(s): two back surgeries Past Anesthesia/Blood Transfusion Reactions: Previous Problems w/ Anesthesia, Motion Sickness Additional Past Anesthesia/Blood Transfusion Reaction / Comment(s): ether caused N/V Past Psychological History: No Psychological Hx Reported Smoking Status: Never smoker - Past Family History Mother Family Medical History: CVA/TIA Sister(s) Family Medical History: Congestive Heart Failure (CHF) Additional Family Medical History / Comment(s): Angina General Exam Limitations: no limitations Course Vital Signs 10/30/20 20:00 Temperature 98.2 F Pulse Rate 116 H Respiratory 18 Rate Blood Pressure 136/83 O2 Sat by Pulse 97 Oximetry Medical Decision Making - Lab Data Result diagrams: 10/30/20 20:09 10/30/20 20:09 Lab Results 10/30/20 10/30/20 10/30/20 Range/Units 20:09 20:09 20:09 WBC 16.9 H (3.8-10.6) k/uL RBC 4.48 (3.80-5.40) m/uL Hgb 14.1 (11.4-16.0) gm/dL Hct 42.0 (34.0-46.0) % MCV 93.7 (80.0-100.0) fL MCH 31.6 (25.0-35.0) pg MCHC 33.7 (31.0-37.0) g/dL RDW 12.5 (11.5-15.5) % Plt Count 235 (150-450) k/uL MPV 8.6 Neutrophils % 86 % Lymphocytes % 8 % Monocytes % 4 % Eosinophils % 2 % Basophils % 0 % Neutrophils # 14.6 H (1.3-7.7) k/uL Lymphocytes # 1.3 (1.0-4.8) k/uL Monocytes # 0.7 (0-1.0) k/uL Eosinophils # 0.3 (0-0.7) k/uL Basophils # 0.1 (0-0.2) k/uL Sodium 140 (137-145) mmol/L Potassium 4.7 (3.5-5.1) mmol/L Chloride 104 (98-107) mmol/L Carbon Dioxide 23 (22-30) mmol/L Anion Gap 13 mmol/L BUN 24 H (7-17) mg/dL Creatinine 1.23 H (0.52-1.04) mg/dL Est GFR (CKD-EPI)AfAm 49 (>60 ml/min/1.73 sqM) Est GFR (CKD-EPI)NonAf 43 (>60 ml/min/1.73 sqM) Glucose 142 H (74-99) mg/dL Calcium 9.8 (8.4-10.2) mg/dL Magnesium 1.9 (1.6-2.3) mg/dL Total Bilirubin 0.8 (0.2-1.3) mg/dL AST 25 (14-36) U/L ALT 16 (4-34) U/L Alkaline Phosphatase 94 (38-126) U/L Total Protein 8.0 (6.3-8.2) g/dL Albumin 4.8 (3.5-5.0) g/dL Lipase 116 (23-300) U/L Urine Color Yellow Urine Appearance Clear (Clear) Urine pH 5.0 (5.0-8.0) Ur Specific [place] 1.014 (1.001-1.035) Urine Protein Negative (Negative) Urine Glucose (UA) Negative (Negative) Urine Ketones Negative (Negative) Urine Blood Negative (Negative) Urine Nitrite Negative (Negative) Urine Bilirubin Negative (Negative) Urine Urobilinogen <2.0 (<2.0) mg/dL Ur Leukocyte Esterase Small H (Negative) Urine RBC 1 (0-5) /hpf Urine WBC 1 (0-5) /hpf Ur Squamous Epith Cells 5 H (0-4) /hpf Urine Bacteria Rare H (None) /hpf Hyaline Casts 12 H (0-2) /lpf Urine Mucus Rare H (None) /hpf Disposition Clinical Impression: Diverticulitis Disposition: HOME SELF-CARE Condition: Fair Instructions (If sedation given, give patient instructions): Diverticulitis (ED) Additional Instructions: you are diagnosed with diverticulitis. Your imaging appeared to be uncomplicated. It is important that you take these medications to completion as prescribed. Please seek medical attention if your symptoms get worse or if you're having trouble with nausea and vomiting, or if you began feeling worse including worsening pain and feeling fever and more weak. Prescriptions: Amoxic-Pot Clav 875-125Mg [Augmentin 875-125] 1 tab PO BID 14 Days #28 tab Ondansetron Odt [Zofran Odt] 4 mg PO Q8HR PRN #12 tab PRN Reason: Nausea Is patient prescribed a controlled substance at d/c from ED?: No Referrals: Sabrina Sanchez MD [Primary Care Provider] - 1-2 days
[2020-10-30 20:36] LABS: Basophils # (A) 0.1 k/uL (0-0.2); Basophils % (A) 0 %; Eosinophils # (A) 0.3 k/uL (0-0.7); Eosinophils % (A) 2 %; HGB 14.1 gm/dL (11.4-16.0); Lymphocytes # (A) 1.3 k/uL (1.0-4.8); Lymphocytes % (A) 8 %; MCH 31.6 pg (25.0-35.0); MCHC 33.7 g/dL (31.0-37.0); MCV 93.7 fL (80.0-100.0); Mean Platelet Volume 8.6; Monocytes # (A) 0.7 k/uL (0-1.0); Monocytes % (A) 4 %; Neutrophils # (A) 14.6 k/uL (1.3-7.7); Neutrophils % (A) 86 %; Platelet Count 235 k/uL (150-450); RBC 4.48 m/uL (3.80-5.40); RDW 12.5 % (11.5-15.5); WBC 16.9 k/uL (3.8-10.6)
[2020-10-30 20:50] LABS: Appearance,Urine Clear (Clear); Bacteria,Urine Rare /hpf; Bilirubin,Urine Negative (Negative); Blood,Urine Negative (Negative); Color,Urine Yellow; Glucose,Urine (UA) Negative (Negative); Hyaline Casts,Urine 12 /lpf (0-2); Ketones,Urine Negative (Negative); Leukocyte Esterase,Urine Small (Negative); Mucus,Urine Rare /hpf; Nitrite,Urine Negative (Negative); Protein,Urine Negative (Negative); RBC,Urine 1 /hpf (0-5); Specific Gravity,Urine 1.014 (1.001-1.035); Squamous Epithelial Cell,Urine 5 /hpf (0-4); Urobilinogen,Urine <2.0 mg/dL (<2.0); WBC,Urine 1 /hpf (0-5)
--- NOTE | 2020-10-30 20:57 | CT ---
EXAMINATION TYPE: CT abdomen pelvis wo con DATE OF EXAM: 10/30/2020 COMPARISON: 12/24/2019. HISTORY: LT side abdomen pain CT DLP: 478.1 mGycm Automated exposure control for dose reduction was used. TECHNIQUE: Helical acquisition of images was performed from the lung bases through the pelvis. FINDINGS: LUNG BASES: No significant abnormality is appreciated. LIVER/GB: No significant abnormality is appreciated. Cholecystectomy. PANCREAS: No significant abnormality is seen. SPLEEN: No significant abnormality is seen. ADRENALS: No significant abnormality is seen. KIDNEYS: No significant abnormality is seen. FREE AIR: No free air is visualized RETROPERITONEAL ADENOPATHY: None visualized REPRODUCTIVE ORGANS: No significant abnormality is seen URINARY BLADDER: No significant abnormality is seen. PELVIC ADENOPATHY: None visualized. OSSEOUS STRUCTURES: No acute abnormality is seen. L5-S1 posterior fusion seen. BOWEL: Moderate fat stranding involving the distal descending colon and adjacent diverticula. Associ ated colonic wall thickening. No bowel obstruction, free air or fluid. Small bowel containing ventral hernia seen. Prior post surgical changes involving the rectosigmoid colon seen. OTHER: None IMPRESSION: ACUTE DIVERTICULITIS INVOLVING THE DESCENDING COLON WITHOUT COMPLICATION.
[2020-10-30 20:59] LABS: Albumin 4.8 g/dL (3.5-5.0); Calcium 9.8 mg/dL (8.4-10.2); Magnesium 1.9 mg/dL (1.6-2.3); Potassium 4.7 mmol/L (3.5-5.1); Total Bilirubin 0.8 mg/dL (0.2-1.3)
[2020-10-30] MEDS ORDERED: AMOXIC-POT CLAV 875MG STARTER PACK 2 TAB BTL PO STA (21:14)
[2020-10-30] MEDS ORDERED: AMOXIC-POT CLAV 875-125MG 1 EACH TAB PO STA (21:14)
[2020-10-30] MEDS ORDERED: ONDANSETRON 4 MG ODT STARTER PACK 2 TAB BTL PO STA (21:18)
[2020-10-30 21:28] VITALS: BP 156/72; PULSE 105; RESP 16
== END 2020-10-30 21:28 | disposition home or self-care (01) ==
LOC: EC 19:59
DX: K57.32 Diverticulitis of large intestine without perforation or abscess without bleeding (principal); R25.2 Cramp and spasm; I10 Essential (primary) hypertension; Z79.82 Long term (current) use of aspirin; Z79.899 Other long term (current) drug therapy; Z88.0 Allergy status to penicillin; Z88.1 Allergy status to other antibiotic agents; Z88.2 Allergy status to sulfonamides
CPT/HCPCS: 36415; 80053; 83690; 83735; 85025; 81001; 74176; 99284; S0119

== ENCOUNTER → 2021-08-25 | Outpatient (CLI) | payer MEDICARE ==
[2021-08-25 17:34] LABS: Basophils # (A) 0.03 X 10*3/uL (0.00-0.10); Basophils % (A) 0.5 %; Eosinophils # (A) 0.18 X 10*3/uL (0.04-0.35); Eosinophils % (A) 3.1 %; HCT 39.5 % (37.2-46.3); HGB 12.3 g/dL (12.0-15.0); Immature Grans, Automated 0.3 %; Lymphocytes # (A) 1.93 X 10*3/uL (0.90-5.00); Lymphocytes % (A) 32.9 %; MCHC 31.1 g/dL (32.0-37.0); MCV 99.5 fL (80.0-97.0); Mean Platelet Volume 11.4 fL (9.5-12.2); Monocytes # (A) 0.37 X 10*3/uL (0.20-1.00); Monocytes % (A) 6.3 %; NRBC Per 100 WBC 0 /100 WBCS (0.0-0.0); Neutrophils # (A) 3.33 X 10*3/uL (1.80-7.70); Neutrophils % (A) 56.9 %; Platelet Count 170 X 10*3/uL (140-440); RBC 3.97 X 10*6/uL (4.10-5.20); RDW 12.4 % (11.5-14.5); WBC 5.86 X 10*3/uL (4.50-10.00)
[2021-08-25 18:18] LABS: African American GFR (CKD) 52.6 (60.0-200.0); Albumin 4.4 g/dL (3.8-4.9); Albumin/Globulin Ratio 1.79 (1.60-3.17); BUN/Creat Ratio 11.9 Ratio (12.00-20.00); Blood Urea Nitrogen 13.8 mg/dL (9.0-27.0); Calcium 9.3 mg/dL (8.7-10.3); Carbon Dioxide 22.8 mmol/L (20.0-27.5); Globulin 2.4 g/dL (1.6-3.3); Non-African American GFR(CKD) 45.4 (60.0-200.0); Potassium 4.6 mmol/L (3.5-5.5); T4, Free (Free Thyroxine) 0.92 ng/dL (0.800-1.800); Total Bilirubin 0.2 mg/dL (0.30-1.20); Total Protein 6.8 g/dL (6.2-8.2)
== END | disposition home or self-care (01) ==
LOC: LABWHC1 10:31
PROVIDERS: ATTEND Internal Medicine Cardiovascular Disease
DX: I10 Essential (primary) hypertension (principal); R53.83 Other fatigue
CPT/HCPCS: 36415; 80053; 84439; 84443; 85025

== ENCOUNTER 2022-10-03 22:30 | Emergency (ER) | payer MEDICARE ==
[2022-10-03 22:56] VITALS: TEMP 98.8
--- NOTE | 2022-10-04 01:38 | XR ---
EXAM: XR Chest, 2 Views CLINICAL HISTORY: ITS.REASON XR Reason: cough TECHNIQUE: Frontal and lateral views of the chest. COMPARISON: No relevant prior studies available. FINDINGS: Lungs: No consolidation or mass. Pleural space: No effusion. Heart: cardiomegaly. Bones/joints: No acute findings. IMPRESSION: No acute cardiopulmonary process.
[2022-10-04] MEDS ORDERED: ONDANSETRON ODT 4 MG TAB PO STA (01:47)
--- NOTE | 2022-10-04 01:48 | ED ---
URI HPI - General Chief Complaint: Upper Respiratory Infection Stated Complaint: V/N/F/Headache Time Seen by Provider: 10/04/22 01:30 Source: patient Mode of arrival: ambulatory Limitations: no limitations - History of Present Illness Initial Comments: Patient is a 69-year-old female presenting with chief complaint of nausea and vomiting accompanied by URI-like symptoms. Patient has had a cough and congestion as well as sinus pressure and body aches ongoing for the last 2 days. She also admits to sore throat. Today patient started vomiting. She is having no abdominal pain. No chest pain or difficulty breathing. No fevers or chills. No hematemesis, hematochezia, melena. She is currently on azithromycin for sinusitis prescribed by her PCP. - Related Data Home Medications Medication Instructions Recorded Confirmed Montelukast Sodium [Singulair] 10 mg PO DAILY 03/25/17 04/06/20 Biotin [Biotin Disolve] 5,000 mcg PO DAILY 12/24/19 04/06/20 Metoprolol Tartrate [Lopressor] 12.5 mg PO BID 12/24/19 04/06/20 diphenhydrAMINE [Benadryl] 25 mg PO DAILY PRN 04/06/20 04/06/20 hydroCHLOROthiazide 25 mg PO DAILY PRN 04/06/20 04/06/20 Previous Rx's Medication Instructions Recorded Aspirin EC [Ecotrin Low Dose] 81 mg PO DAILY #30 tablet. 12/05/19 Nitroglycerin Sl Tabs [Nitrostat] 0.4 mg SUBLINGUAL Q5M PRN #30 tab 12/05/19 lisinopriL [Zestril] 10 mg PO DAILY 30 Days #30 tab 12/05/19 Amoxic-Pot Clav 875-125Mg 1 tab PO BID 14 Days #28 tab 10/30/20 [Augmentin 875-125] Ondansetron Odt [Zofran Odt] 4 mg PO Q8HR PRN #12 tab 10/30/20 Ondansetron Odt [Zofran Odt] 4 mg PO Q8HR PRN #20 tab 10/04/22 Allergies Allergy/AdvReac Type Severity Reaction Status Date / Time menthol Allergy Unknown Verified 10/30/20 20:03 [From Chloraseptic Sore Throat] Penicillins Allergy Unknown Verified 10/30/20 20:03 Sulfa (Sulfonamide Allergy Unknown Verified 10/30/20 20:03 Antibiotics) levofloxacin [From Levaquin] AdvReac Abdominal Verified 10/30/20 20:03 Pain, N/V metronidazole AdvReac Abdominal Verified 10/30/20 20:03 Pain, N/V Review of Systems ROS Statement: Those systems with pertinent positive or pertinent negative responses have been documented in the HPI. ROS Other: All systems not noted in ROS Statement are negative. Past Medical History Past Medical History: Hypertension Additional Past Medical History / Comment(s): sinus allergies. lt leg swelling on occasion. "pouching in bowel" History of Any Multi-Drug Resistant Organisms: None Reported Past Surgical History: Back Surgery, Bowel Resection, Cholecystectomy, Heart Catheterization, Hysterectomy Additional Past Surgical History / Comment(s): two back surgeries Past Anesthesia/Blood Transfusion Reactions: Previous Problems w/ Anesthesia, Motion Sickness Additional Past Anesthesia/Blood Transfusion Reaction / Comment(s): ether caused N/V Past Psychological History: No Psychological Hx Reported Smoking Status: Never smoker - Past Family History Mother Family Medical History: CVA/TIA Sister(s) Family Medical History: Congestive Heart Failure (CHF) Additional Family Medical History / Comment(s): Angina General Exam Limitations: no limitations General appearance: alert, in no apparent distress Head exam: Present: atraumatic, normocephalic, normal inspection Eye exam: Present: normal appearance, EOMI. Absent: scleral icterus, periorbital swelling Neck exam: Present: normal inspection, full ROM Respiratory exam: Present: normal lung sounds bilaterally. Absent: respiratory distress, wheezes, rales, rhonchi, stridor Cardiovascular Exam: Present: regular rate, normal rhythm, normal heart sounds. Absent: systolic murmur, diastolic murmur, rubs, gallop, clicks GI/Abdominal exam: Present: soft. Absent: distended, tenderness, guarding, rebound, rigid Extremities exam: Present: normal inspection Neurological exam: Present: alert, oriented X3, CN II-XII intact Psychiatric exam: Present: normal affect, normal mood Skin exam: Present: warm, dry, intact, normal color. Absent: rash Course Vital Signs 10/03/22 10/04/22 10/04/22 22:52 01:30 04:19 Temperature 98.8 F Pulse Rate 82 86 78 Respiratory 16 20 18 Rate Blood Pressure 197/65 163/74 163/60 O2 Sat by Pulse 95 96 96 Oximetry Medical Decision Making - Medical Decision Making Was pt. sent in by a medical professional or institution ([facility], COMMISSIONED SALES ASSOCIATE, urgent care, hospital, or skilled nursing...) When possible be specific @ -No Did you speak to anyone other than the patient for history (EMS, parent, family, police, friend...)? What history was obtained from this source @ -No Did you review nursing and triage notes (agree or disagree)? Why? @ -I reviewed and agree with nursing and triage notes Were old charts reviewed (outside hosp., previous admission, EMS record, old EKG, old radiological studies, urgent care reports/EKG's, skilled nursing records)? Report findings @ -No old charts were reviewed Differential Diagnosis (chest pain, altered mental status, abdominal pain women, abdominal pain men, vaginal bleeding, weakness, fever, dyspnea, syncope, headache, dizziness, GI bleed, back pain, seizure, CVA, palpatations, mental health, musculoskeletal)? @ -Differential includes gastroenteritis, group A strep, influenza, Covid, this is not an all inclusive list EKG interpreted by me (3pts min.). @ -As above X-rays interpreted by me (1pt min.). @ -Chest x-ray shows no acute process CT interpreted by me (1pt min.). @ -None done U/S interpreted by me (1pt. min.). @ -None done What testing was considered but not performed or refused? (CT, X-rays, U/S, labs)? Why? @ -None What meds were considered but not given or refused? Why? @ -None Did you discuss the management of the patient with other professionals (professionals i.e. [facility] Stallings, COMMISSIONED SALES ASSOCIATE, lab, RT, psych nurse, social services specialist, raw cheese worker, teacher, senior compliance officer, test case developer)? Give summary @ -No Was smoking cessation discussed for >3mins.? @ -No Was critical care preformed (if so, how long)? @ -No Were there social determinants of health that impacted care today? How? (Home lessness, low income, unemployed, alcoholism, drug addiction, transportation, low edu. Level, literacy, decrease access to med. care, fci, rehab)? @ -No Was there de-escalation of care discussed even if they declined (Discuss DNR or withdrawal of care, Hospice)? DNR status @ -No What co-morbidities impacted this encounter? (DM, HTN, Smoking, COPD, CAD, Cancer, CVA, ARF, Chemo, Hep., AIDS, mental health diagnosis, sleep apnea, morbid obesity)? @ -None Was patient admitted / discharged? Hospital course, mention meds given and route, prescriptions, significant lab abnormalities, going to OR and other pertinent info. @ -Patient is a 77-year-old female presenting with chief complaint of URI-like symptoms as well as nausea and vomiting that started today. Physical examination is unremarkable. Chest x-ray is negative for any acute process and patient is negative for influenza, RSV, Covid, group A strep. Patient reports resolution of her symptoms after Zofran. She is provided with prescription for Zofran and educated on supportive management at home. Follow-up with PCP. Report back to ER with any new or worsening symptoms. Discussed return parameters and answered all questions. Patient conveyed verbal understanding and agreed to the plan. I discussed this case in detail with my attending Dr. Guerra Undiagnosed new problem with uncertain prognosis? @ -No Drug Therapy requiring intensive monitoring for toxicity (Heparin, Nitro, Insulin, Cardizem)? @ -No Were any procedures done? @ -No Diagnosis/symptom? @ -URI and nausea vomiting Acute, or Chronic, or Acute on Chronic? @ -Acute Uncomplicated (without systemic symptoms) or Complicated (systemic symptoms)? @ -Uncomplicated Side effects of treatment? @ -No Exacerbation, Progression, or Severe Exacerbation? @ -No Poses a threat to life or bodily function? How? (Chest pain, [place], [place], pneumonia, PE, COPD, DKA, ARF, appy, cholecystitis, CVA, Diverticulitis, Homicidal, Suicidal, threat to staff... and all critical care pts) @ -No - Lab Data Lab Results 10/04/22 10/04/22 Range/Units 01:22 02:17 Influenza Type A (PCR) Not Detected (Not Detectd) Influenza Type B (PCR) Not Detected (Not Detectd) RSV (PCR) Not Detected (Not Detectd) SARS-CoV-2 (PCR) Not Detected (Not Detectd) Group A Strep (PCR) NOT DETECTED (Not Detectd) Disposition Clinical Impression: Sinusitis, Nausea & vomiting Disposition: HOME SELF-CARE Condition: Good Instructions (If sedation given, give patient instructions): Sinusitis (ED), Acute Nausea and Vomiting (ED) Additional Instructions: Follow-up with PCP. Report back to ER with any new or worsening symptoms. Take medication as prescribed. Prescriptions: Ondansetron Odt [Zofran Odt] 4 mg PO Q8HR PRN #20 tab PRN Reason: Nausea Is patient prescribed a controlled substance at d/c from ED?: No Referrals: Katherine Powers PAC [REFERRING] - 1-2 days Time of Disposition: 03:05
[2022-10-04] MEDS ORDERED: ONDANSETRON 4 MG ODT STARTER PACK 2 TAB BTL PO STA (03:05)
[2022-10-04 04:20] VITALS: BP 163/60; PULSE 78; RESP 18
== END 2022-10-04 04:20 | disposition home or self-care (01) ==
LOC: EC 22:30
DX: J32.9 Chronic sinusitis, unspecified (principal); R11.2 Nausea with vomiting, unspecified; I10 Essential (primary) hypertension; Z79.899 Other long term (current) drug therapy; Z88.0 Allergy status to penicillin; Z88.2 Allergy status to sulfonamides; Z88.8 Allergy status to other drugs, medicaments and biological substances; Z20.822 Contact with and (suspected) exposure to COVID-19
CPT/HCPCS: 87651; 87636; 71046; 99283; S0119

== ENCOUNTER → 2023-10-30 | Outpatient (CLI) | payer MEDICARE ==
--- NOTE | 2023-10-30 13:54 | CT ---
EXAMINATION TYPE: CT brain wo con DATE OF EXAM: 10/30/2023 COMPARISON: None HISTORY: recent fall no LOC headache and swelling on left side head CT DLP: [address] of the brain was performed. The ventricles, basal cisterns and sulci overlying the cerebral convexities demonstrate mild enlargem ent. There is no evidence for intracranial hemorrhage or sulcal effacement. There is decreased attenuation about the periventricular white matter and deep white matter of both c erebral hemispheres, compatible with chronic small vessel ischemia. Differential diagnosis does inclu de demyelination. No mass effects are seen.No midline shift. Osseous calvarium is intact. If symptoms persist consider MRI. IMPRESSION: 1. Age related atrophic and chronic small vessel ischemic change without acute intracranial process s een at this time.
== END | disposition home or self-care (01) ==
LOC: RADCTMAIN 13:28
PROVIDERS: ATTEND Family Medicine
DX: I67.82 Cerebral ischemia (principal); W19.XXXA Unspecified fall, initial encounter
CPT/HCPCS: 70450

== ENCOUNTER 2024-09-18 11:30 | Observation (INO) | payer MEDICARE ==
--- NOTE | 2024-09-18 12:06 | ED ---
Dizziness HPI - General Chief Complaint: Dizziness Stated Complaint: Shane arm numbness,SOB Time Seen by Provider: 09/18/24 11:44 Source: patient, RN notes reviewed Mode of arrival: ambulatory Limitations: no limitations - History of Present Illness Initial Comments: This is an 79-year-old female who presents to the emergency department for dizziness. States that she had been dealing with a right sided toothache for the last couple of days and had planned to go to the dentist today. However, last night she started to feel dizzy and short of breath. The symptoms progressed into today. States that the shortness of breath is worse with exertion and the dizziness is worse with movement. She started to develop some mgwx-wpm-hafteyk sensation in the fingertips of her left hand this morning as well as some discomfort to the left side of her neck. The pins and needle sensation does not go past the fingers. Denies any pain in her chest. Denies a [place] history of similar symptoms in the past. Does not take any blood thinners. MD Complaint: dizziness - Related Data Home Medications Medication Instructions Recorded Confirmed Montelukast Sodium [Singulair] 10 mg PO DAILY 03/25/17 09/18/24 Metoprolol Tartrate [Lopressor] 12.5 mg PO BID 12/24/19 09/18/24 Aspirin EC [Ecotrin Low Dose] 81 mg PO 09/18/24 09/18/24 Cyanocobalamin [Vitamin B-12 1,000 mcg SQ Q30D 09/18/24 09/18/24 Injection] Ergocalciferol [Vitamin D2 (1250 1,250 mcg PO TU 09/18/24 09/18/24 Mcg = 21152 Iu)] Furosemide [Lasix] 20 mg PO DAILY 09/18/24 09/18/24 Nitroglycerin Sl Tabs [Nitrostat] 0.4 mg SL Q5M PRN 09/18/24 09/18/24 Sertraline [Zoloft] 25 mg PO DAILY 09/18/24 09/18/24 lisinopriL [Zestril] 20 mg PO HS 09/18/24 09/18/24 Allergies Allergy/AdvReac Type Severity Reaction Status Date / Time menthol Allergy Unknown Verified 09/18/24 15:05 [From Chloraseptic Sore Throat] Penicillins Allergy Swelling/Ra Verified 09/18/24 15:05 sh Sulfa (Sulfonamide Allergy Swelling/Ra Verified 09/18/24 15:05 Antibiotics) sh levofloxacin [From Levaquin] AdvReac Abdominal Verified 09/18/24 15:05 Pain, N/V metronidazole AdvReac Abdominal Verified 09/18/24 15:05 Pain, N/V Review of Systems ROS Statement: Those systems with pertinent positive or pertinent negative responses have been documented in the HPI. ROS Other: All systems not noted in ROS Statement are negative. Past Medical History Past Medical History: Hypertension Additional Past Medical History / Comment(s): sinus allergies. lt leg swelling on occasion. "pouching in bowel" History of Any Multi-Drug Resistant Organisms: None Reported Past Surgical History: Back Surgery, Bowel Resection, Cholecystectomy, Heart Catheterization, Hysterectomy Additional Past Surgical History / Comment(s): two back surgeries Past Anesthesia/Blood Transfusion Reactions: Previous Problems w/ Anesthesia, Motion Sickness Additional Past Anesthesia/Blood Transfusion Reaction / Comment(s): ether caused N/V Past Psychological History: No Psychological Hx Reported Smoking Status: Never smoker - Past Family History Mother Family Medical History: CVA/TIA Sister(s) Family Medical History: Congestive Heart Failure (CHF) Additional Family Medical History / Comment(s): Angina General Exam Limitations: no limitations General appearance: alert, in no apparent distress Head exam: Present: atraumatic, normocephalic, normal inspection Eye exam: Present: normal appearance, PERRL, EOMI. Absent: scleral icterus, conjunctival injection, periorbital swelling Respiratory exam: Present: normal lung sounds bilaterally. Absent: respiratory distress, wheezes, rales, rhonchi, stridor Cardiovascular Exam: Present: regular rate, normal rhythm Neurological exam: Present: alert, oriented X3, CN II-XII intact Expanded Cerebellar function: Finger to Nose: Normal, Heel to Simpson: Normal, Romberg: Normal Upper motor neuron: Pronator Drift: Normal, Sensory Extinction: Normal Motor strength exam: RUE: 5, LUE: 5, RLE: 5, LLE: 5 Psychiatric exam: Present: normal affect, normal mood Skin exam: Present: warm, dry, intact, normal color. Absent: rash Course Vital Signs 09/18/24 09/18/24 09/18/24 11:31 13:33 15:00 Temperature 97.3 F L Pulse Rate 83 61 73 Respiratory 20 16 16 Rate Blood Pressure 161/74 141/68 179/87 O2 Sat by Pulse 99 95 95 Oximetry Medical Decision Making - Medical Decision Making This is an 79 year old female who presents to the emergency department for dizziness. Was pt. sent in by a medical professional or institution? @ -No Did you speak to anyone other than the patient for history? @ -No Did you review nursing and triage notes? @ -Yes, and I agree, it is accurate with regards to the patient's symptoms. Were old charts reviewed? @ -No Differential Diagnosis? @ -Differential Dizziness: Benign paroxysmal positional Vertigo, Meniere's disease, otitis media, acoustic neuroma, vertebrobasilar insufficiency, cerebellar stroke, encephalitis, hypovolemic, arrhythmia, coronary artery syndrome, anemia, this is not meant to be an all-inclusive list EKG interpreted by me (3pts min.)? @ -EKG interpreted by me demonstrating the following: Sinus rhythm. Ventricular rate 66 bpm, SC interval 186 ms, QRS duration 90 ms, QTc 411 ms. X-rays interpreted by me (1pt min.)? @ -Chest x-ray obtained, my interpretation identifies no localized consolidations or infiltrates. CT interpreted by me (1pt min.)? @ -CT scan of the brain obtained. My interpretation identifies no acute intra cranial hemorrhage. U/S interpreted by me (1pt. min.)? @ -Duplex ultrasound of the carotid arteries obtained. My interpretation identifies no stenosis. What testing was considered but not performed? (CT, X-rays, U/S, labs)? Why? @ -None What meds were considered but not given? Why? @ -None Did you discuss the management of the patient with other professionals? @ -Yes, Dr. William, who accept the patient for admission Did you reconcile home meds? @ -Yes Was smoking cessation discussed for >3mins.? @ -No Was critical care preformed (if so, how long)? @ -No Were there social determinants of health that impacted care today? How? (Homelessness, low income, unemployed, alcoholism, drug addiction, bianchi sportation, low edu. Level, literacy, decrease access to med. care, halfway, rehab)? @ -No Was there de-escalation of care discussed even if they declined? (Discuss DNR or withdrawal of care, Hospice)? @ -No What co-morbidities impacted this encounter? (DM, HTN, Smoking, COPD, CAD, Cancer, CVA, Hep., AIDS, mental health diagnosis, sleep apnea, morbid obesity)? @ -HTN Was patient admitted / discharged? @ -Admitted. Lab work demonstrates signs of dehydration and reduced kidney function, but is otherwise unremarkable. COVID, influenza, and RSV testing negative. Urinalysis negative for signs of infection. Chest x-ray reveals no acute process. CT scan of the brain obtained also revealing no acute findings. Her NIH was 0 on arrival. We had intended on getting a CTA of the head and neck, however due to her renal function this was avoided for the meantime. She was treated with IV fluids, meclizine, and Zofran. She did find these effective and her symptoms improved. However, she was still experiencing some residual dizziness, pain in her left neck and jaw, as well as some tingling in the left hand. Symptoms may be related to vertigo, however given patient's age and risk factors, she was admitted to medicine for further management and neurology evaluation. Case discussed with ED attending Dr. Weinstein. Undiagnosed new problem with uncertain prognosis? @ -None Drug Therapy requiring intensive monitoring for toxicity (Heparin, Nitro, Insulin, Cardizem)? @ -None Were any procedures done? @ -None Diagnosis/symptom? @ -Dizziness, dyspnea, left arm paresthesias Acute, or Chronic, or Acute on Chronic? @ -Acute Uncomplicated (without systemic symptoms) or Complicated (systemic symptoms)? @ -Complicated Side effects of treatment? @ -None Exacerbation, Progression, or Severe Exacerbation] @ -Not applicable Poses a threat to life or bodily function? @ -Yes, if related to something like a CVA/TIA, it can be life-threatening. - Lab Data Result diagrams: 09/18/24 12:03 09/18/24 12:03 Lab Results 09/18/24 09/18/24 09/18/24 Range/Units 12:03 12:03 12:03 WBC 6.83 (4.50-10.00) 10*3/uL RBC 3.88 L (4.10-5.20) 10*6/uL Hgb 12.4 (12.0-15.0) g/dL Hct 37.0 L (37.2-46.3) % MCV 95.4 (80.0-97.0) fL MCH 32.0 (27.0-32.0) pg MCHC 33.5 (32.0-37.0) g/dL Plt Count 197 (140-440) 10*3/uL MPV 11.3 (9.5-12.2) fL Immature Gran % (Auto) 0.3 % Neutrophils % 70.3 % Lymphocytes % 17.6 % Monocytes % 6.7 % Eosinophils % 4.4 % Basophils % 0.7 % Immature Gran # 0.02 (0.00-0.04) 10*3/uL Neutrophils # 4.80 (1.80-7.70) 10*3/uL Lymphocytes # 1.20 (0.90-5.00) 10*3/uL Monocytes # 0.46 (0.20-1.00) 10*3/uL Eosinophils # 0.30 (0.04-0.35) 10*3/uL Basophils # 0.05 (0.00-0.10) 10*3/uL PT 10.5 (10.0-12.5) sec INR 0.9 (<1.2) APTT 21.1 L (22.0-30.0) sec D-Dimer 0.57 (<0.60) mg/L FEU Sodium 140 (137-145) mmol/L Potassium 4.3 (3.5-5.1) mmol/L Chloride 106 (98-107) mmol/L Carbon Dioxide 23 (22-30) mmol/L Anion Gap 11 mmol/L BUN 25 H (7-17) mg/dL Creatinine 1.66 H (0.52-1.04) mg/dL Est GFR (CKD-EPI)AfAm 33 (>60 ml/min/1.73 sqM) Est GFR (CKD-EPI)NonAf 29 (>60 ml/min/1.73 sqM) Glucose 145 H (74-99) mg/dL Calcium 9.7 (8.4-10.2) mg/dL Magnesium 1.8 (1.6-2.3) mg/dL Total Bilirubin 0.8 (0.2-1.3) mg/dL AST 29 (14-36) U/L ALT 17 (4-34) U/L Alkaline Phosphatase 67 (38-126) U/L Troponin I (0.000-0.034) ng/mL NT-Pro-B Natriuret Pep 410 pg/mL Total Protein 8.0 (6.3-8.2) g/dL Albumin 4.7 (3.5-5.0) g/dL Urine Color Urine Appearance (Clear) Urine pH (5.0-8.0) Ur Specific [place] (1.001-1.035) Urine Protein (Negative) Urine Glucose (UA) (Negative) Urine Ketones (Negative) Urine Blood (Negative) Urine Nitrite (Negative) Urine Bilirubin (Negative) Urine Urobilinogen (<2.0) mg/dL Ur Leukocyte Esterase (Negative) Urine RBC (0-5) /hpf Urine WBC (0-5) /hpf Ur Squamous Epith Cells (0-4) /hpf Urine Bacteria (None) /hpf Hyaline Casts (0-2) /lpf Urine Mucus (None) /hpf Influenza Type A (PCR) (Not Detectd) Influenza Type B (PCR) (Not Detectd) RSV (PCR) (Not Detectd) SARS-CoV-2 (PCR) (Not Detectd) 09/18/24 09/18/24 09/18/24 Range/Units 12:03 12:06 13:07 WBC (4.50-10.00) 10*3/uL RBC (4.10-5.20) 10*6/uL Hgb (12.0-15.0) g/dL Hct (37.2-46.3) % MCV (80.0-97.0) fL MCH (27.0-32.0) pg MCHC (32.0-37.0) g/dL Plt Count (140-440) 10*3/uL MPV (9.5-12.2) fL Immature Gran % (Auto) % Neutrophils % % Lymphocytes % % Monocytes % % Eosinophils % % Basophils % % Immature Gran # (0.00-0.04) 10*3/uL Neutrophils # (1.80-7.70) 10*3/uL Lymphocytes # (0.90-5.00) 10*3/uL Monocytes # (0.20-1.00) 10*3/uL Eosinophils # (0.04-0.35) 10*3/uL Basophils # (0.00-0.10) 10*3/uL PT (10.0-12.5) sec INR (<1.2) APTT (22.0-30.0) sec D-Dimer (<0.60) mg/L FEU Sodium (137-145) mmol/L Potassium (3.5-5.1) mmol/L Chloride (98-107) mmol/L Carbon Dioxide (22-30) mmol/L Anion Gap mmol/L BUN (7-17) mg/dL Creatinine (0.52-1.04) mg/dL Est GFR (CKD-EPI)AfAm (>60 ml/min/1.73 sqM) Est GFR (CKD-EPI)NonAf (>60 ml/min/1.73 sqM) Glucose (74-99) mg/dL Calcium (8.4-10.2) mg/dL Magnesium (1.6-2.3) mg/dL Total Bilirubin (0.2-1.3) mg/dL AST (14-36) U/L ALT (4-34) U/L Alkaline Phosphatase (38-126) U/L Troponin I <0.012 (0.000-0.034) ng/mL NT-Pro-B Natriuret Pep pg/mL Total Protein (6.3-8.2) g/dL Albumin (3.5-5.0) g/dL Urine Color Colorless Urine Appearance Cloudy H (Clear) Urine pH 5.5 (5.0-8.0) Ur Specific [place] 1.010 (1.001-1.035) Urine Protein Negative (Negative) Urine Glucose (UA) Negative (Negative) Urine Ketones Negative (Negative) Urine Blood Negative (Negative) Urine Nitrite Negative (Negative) Urine Bilirubin Negative (Negative) Urine Urobilinogen <2.0 (<2.0) mg/dL Ur Leukocyte Esterase Small H (Negative) Urine RBC 2 (0-5) /hpf Urine WBC 1 (0-5) /hpf Ur Squamous Epith Cells 4 (0-4) /hpf Urine Bacteria Rare H (None) /hpf Hyaline Casts 1 (0-2) /lpf Urine Mucus Rare H (None) /hpf Influenza Type A (PCR) Not Detected (Not Detectd) Influenza Type B (PCR) Not Detected (Not Detectd) RSV (PCR) Not Detected (Not Detectd) SARS-CoV-2 (PCR) Not Detected (Not Detectd) - Radiology Data Radiology results: report reviewed, image reviewed Disposition Clinical Impression: Dizziness, Paresthesia of left arm, Shortness of breath Disposition: ADMITTED IP TO THIS HOSP
[2024-09-18] MEDS: MECLIZINE 12.5 MG TAB PO STA (12:07)
[2024-09-18] MEDS: ONDANSETRON 4 MG/2 ML VIAL IVP STA (12:07)
[2024-09-18] MEDS: SODIUM CHLORIDE 0.9% 500 ML 500 ML IV ONE (12:12)
[2024-09-18 12:24] LABS: Basophils # (A) 0.05 10*3/uL (0.00-0.10); Basophils % (A) 0.7 %; Eosinophils % (A) 4.4 %; HGB 12.4 g/dL (12.0-15.0); Lymphocytes % (A) 17.6 %; MCHC 33.5 g/dL (32.0-37.0); MCV 95.4 fL (80.0-97.0); Mean Platelet Volume 11.3 fL (9.5-12.2); Monocytes # (A) 0.46 10*3/uL (0.20-1.00); Monocytes % (A) 6.7 %; Neutrophils % (A) 70.3 %; Platelet Count 197 10*3/uL (140-440); RBC 3.88 10*6/uL (4.10-5.20); RDW 12.8 % (11.5-14.5); WBC 6.83 10*3/uL (4.50-10.00)
--- NOTE | 2024-09-18 12:33 | CT ---
EXAMINATION TYPE: CT brain wo con CT DLP: 1098.4 mGycm, Automated exposure control for dose reduction was used. DATE OF EXAM: 09/18/2024 12:28 PM COMPARISON: CT brain 10/30/2023 CLINICAL INDICATION:Female, 79 years old with history of Neuro deficit, acute, stroke suspected, DIZZ INESS, LEFT NUMBNESS AND TOOTH ACHE TECHNIQUE: Brain: Multiple axial CT images of the brain were obtained without IV contrast. . Coronal and sagitta l reformats reviewed. FINDINGS: Brain: Extra-axial spaces: No abnormal extra-axial fluid collections. Ventricular system: Within normal limits Cerebral parenchyma: No acute intraparenchymal hemorrhage or mass effect. The kan-white junction is well differentiated. Scattered hypoattenuating areas are seen within the periventricular white matte r. Cerebellum: Unremarkable. Mass effect: No evidence of midline shift. Intracranial vasculature: Atherosclerotic calcifications of the intracranial vessels. Soft tissues: Normal. Calvarium/osseous structures: No depressed skull fracture. Paranasal sinuses and mastoid air cells: The mastoid air cells are clear. Mild mucosal thickening of the inferior right maxillary sinus. The remaining paranasal sinuses are clear. Visualized orbits: Orbital contents are intact. IMPRESSION: 1. No acute intracranial process. 2. Nonspecific white matter changes, likely secondary to chronic small vessel ischemic disease. [facility], , 09/18/2024 12:31 PM
--- NOTE | 2024-09-18 12:34 | XR ---
EXAMINATION TYPE: XR chest 2V DATE OF EXAM: 09/18/2024 12:29 PM COMPARISON: Chest radiographs from 12/04/2019 TECHNIQUE: XR chest 2V Frontal and lateral views of the chest. CLINICAL INDICATION:Female, 79 years old with history of altered mental status; FINDINGS: Lungs/Pleura: There is no evidence of pleural effusion, focal consolidation, or pneumothorax. Pulmonary vascularity: Unremarkable. Heart/mediastinum: Cardiomediastinal silhouette is enlarged and stable. Musculoskeletal: No acute osseous pathology. Other: Surgical clips in the upper abdomen. IMPRESSION: No acute cardiopulmonary disease/process. [facility], , 09/18/2024 12:31 PM
[2024-09-18 12:40] LABS: ALT 17 U/L (4-34); African American GFR (CKD) 33 (>60 ml/min/1.73 sqM); Albumin 4.7 g/dL (3.5-5.0); Anion Gap 11 mmol/L; Blood Urea Nitrogen 25 mg/dL (7-17); Calcium 9.7 mg/dL (8.4-10.2); Carbon Dioxide 23 mmol/L (22-30); Chloride 106 mmol/L (98-107); Glucose 145 mg/dL (74-99); Non-African American GFR(CKD) 29 (>60 ml/min/1.73 sqM); Sodium 140 mmol/L (137-145); Total Bilirubin 0.8 mg/dL (0.2-1.3)
[2024-09-18 12:48] LABS: NT-Pro-B-Type Natriuretic Pept 410 pg/mL
[2024-09-18 13:01] LABS: AST 29 U/L (14-36); Alkaline Phosphatase 67 U/L (38-126); Magnesium 1.8 mg/dL (1.6-2.3); Potassium 4.3 mmol/L (3.5-5.1)
[2024-09-18 13:04] LABS: Influenza A Not Detected (Not Detectd); Influenza B Not Detected (Not Detectd); RSV Not Detected (Not Detectd)
[2024-09-18 13:42] LABS: Appearance,Urine Cloudy (Clear); Bacteria,Urine Rare /hpf; Bilirubin,Urine Negative (Negative); Blood,Urine Negative (Negative); Color,Urine Colorless; Glucose,Urine (UA) Negative (Negative); Hyaline Casts,Urine 1 /lpf (0-2); Ketones,Urine Negative (Negative); Leukocyte Esterase,Urine Small (Negative); Mucus,Urine Rare /hpf; Nitrite,Urine Negative (Negative); PH, Urine 5.5 (5.0-8.0); Protein,Urine Negative (Negative); RBC,Urine 2 /hpf (0-5); Squamous Epithelial Cell,Urine 4 /hpf (0-4); Urobilinogen,Urine <2.0 mg/dL (<2.0); WBC,Urine 1 /hpf (0-5)
[2024-09-18 13:43] LABS: INR 0.9 (<1.2); Partial Thromboplastin Time 21.1 sec (22.0-30.0); Prothrombin Time 10.5 sec (10.0-12.5)
[2024-09-18] MEDS ORDERED: HYDROcodone/APAP 5-325MG 1 EACH TAB PO PRN (15:19)
[2024-09-18] MEDS ORDERED: ONDANSETRON 4 MG/2 ML VIAL IVP PRN (15:19)
[2024-09-18] MEDS ORDERED: MORPHINE SULFATE 4 MG/ML SYRINGE IV PRN (15:19)
[2024-09-18] MEDS ORDERED: NALOXONE 0.4 MG/ML 1 ML VIAL IV PRN (15:19)
[2024-09-18] MEDS ORDERED: NITROGLYCERIN SL TABS 0.4 MG TAB SUBLINGUAL PRN (15:21)
[2024-09-18] MEDS ORDERED: MECLIZINE 25 MG TAB PO PRN (15:21)
[2024-09-18] MEDS: SODIUM CHLORIDE 0.9% 500 ML 500 ML IV SCH (16:15)
--- NOTE | 2024-09-18 16:29 | US ---
EXAMINATION TYPE: US carotid duplex BILAT DATE OF EXAM: 09/18/2024 COMPARISON: NONE CLINICAL INDICATION: Female, 79 years old with history of Dizziness; dizzy spell today Additional History: .... TECHNIQUE: Grayscale, color Doppler and spectral Doppler evaluation of the bilateral carotid systems and vertebral arteries. Indirect Doppler criteria was utilized. FINDINGS: EXAM MEASUREMENTS: RIGHT: Peak Systolic Velocity (PSV) cm/sec ----- Right CCA: 97.8 ----- Right ICA: 120.5 ----- Right ECA: 101.1 ICA/CCA ratio: 1.2 RIGHT: End Diastole cm/sec ----- Right CCA: 16.3 ----- Right ICA: 30.0 ----- Right ECA: 7.4 LEFT: Peak Systolic Velocity (PSV) cm/sec ----- Left CCA: 67.7 ----- Left ICA: 100.4 ----- Left ECA: 97.8 ICA/CCA ratio: 1.5 LEFT: End Diastole cm/sec ----- Left CCA: 13.8 ----- Left ICA: 30.5 ----- Left ECA: 3.4 VERTEBRALS (direction of flow): Right Vertebral: Antegrade Left Vertebral: Retrograde Rhythm: Normal PRIVATE PILOT NOTES: No significant stenosis seen, mild plaque bilateral bulbs Color Doppler imaging shows patency with blood flow throughout the carotid artery. Spectral waveforms are within normal limits. IMPRESSION: Right: No hemodynamically significant stenosis. Left: No hemodynamically significant stenosis. Criteria for Assigning % of Stenosis / Diameter reduction (Estimation based on the indirect measurements of the internal carotid artery velocities (ICA PSV). 1. Normal (no stenosis)=ICA PSV < 180 cm/s: ratio < 2.0: ICA EDV<40 cm/s. 2. Less than 50% stenosis=ICA PSV < 180 cm/s: ratio < 2.0: ICA EDV<40 cm/s. 3. 50 to 69% stenosis=ICA PSV of 180 to 230 cm/s: ration 2.0 ? 4.0: ICA EDV 40-100 cm/s. PSV 125-180 cm/sec and ICA/CCA PSV Ratio ? 2.0 is also consistent with 50-69% stenosis 4. Greater than 70% stenosis to near occlusion= ICA PSV > 230 cm/s: ratio > 4.0: ICA EDV > 100 cm/s. 5. Near occlusion= ICA PSV velocities may be low or undetectable: variable ratio and ICA EDV. 6. Total occlusion=unable to detect flow. [facility], , 09/18/2024 4:27 PM
[2024-09-18] MEDS ORDERED: HEPARIN SODIUM 1,000 UN/ML (10ML VL) IV PRN (17:43)
[2024-09-18] MEDS: HEPARIN SODIUM 1,000 UN/ML (10ML VL) IV ONE (18:25)
[2024-09-18] MEDS: HEPARIN SOD,PORK IN 0.45% NACL 25,000 UNIT in 0.45% NACL 1 250ML.BAG IV SCH (18:26)
[2024-09-18] MEDS ORDERED: lisinopriL 20 MG TAB PO SCH (21:00)
[2024-09-18] MEDS: METOPROLOL TARTRATE 12.5 MG TAB PO SCH (22:39)
[2024-09-18] MEDS: ASPIRIN 81 MG PO SCH (22:40)
[2024-09-19 08:31] LABS: BUN/Creat Ratio 15.06 Ratio (12.00-20.00); Blood Urea Nitrogen 25.6 mg/dL (9.0-27.0); Calcium 8.7 mg/dL (8.7-10.3); Carbon Dioxide 19.9 mmol/L (21.6-31.8); Chloride 108 mmol/L (96-109); Glucose 115 mg/dL (70-110); Potassium 4.3 mmol/L (3.5-5.5); Sodium 141 mmol/L (135-145)
[2024-09-19] MEDS ORDERED: FUROSEMIDE 20 MG TAB PO SCH (09:00)
[2024-09-19] MEDS: PANTOPRAZOLE 40 MG/10 ML VIAL IV SCH (09:54)
[2024-09-19] MEDS: MONTELUKAST 10 MG TAB PO SCH (09:55)
[2024-09-19] MEDS ORDERED: NITROGLYCERIN SL TABS 0.4 MG TAB SUBLINGUAL PRN (10:08)
[2024-09-19] MEDS ORDERED: ALPRAZolam 0.25 MG TAB PO PRN (10:08)
[2024-09-19] MEDS ORDERED: ALPRAZolam 0.5 MG TAB PO PRN (10:08)
[2024-09-19] MEDS: SODIUM CHLORIDE 0.9% 1,000 ML in EMPTY BAG 1 BAG IV SCH (10:30)
[2024-09-19] MEDS: SERTRALINE 25 MG TAB PO SCH (10:31)
[2024-09-19] MEDS: ATORVASTATIN 80 MG TAB PO STA (10:31)
[2024-09-19] MEDS: ASPIRIN 325 MG TAB PO STA (10:31)
--- NOTE | 2024-09-19 11:25 | P.CRDCN ---
History of Present Illness History of present illness: HISTORY OF PRESENT ILLNESS: This is a 79-year-old female with a past medical history significant for hypertension, congestive heart failure, moderate to severe MR, LVH, and dizziness. Patient follows in the office with Dr. Esparza. We have been asked to see the patient in consultation for elevated troponin. Patient examined at the bedside. Patient presented to the hospital with a chief complaint of dizziness. She also reports having chest pressure with tingling into her left arm and fingers. Patient was found to have elevated troponins and was started on IV heparin. DIAGNOSTICS: - EKG reveals sinus mechanism with LVH. - Chest xray negative for acute process - Carotid Doppler: No hemodynamically significant stenosis bilaterally - Laboratory data: WBC 6.83. Hemoglobin 12.4. Platelet count 197. D-dimer 0.57. Sodium 140. Potassium 4.3. BUN 25. Creatinine 1.66. Troponin 0.012. 0.058. 0.096. proBNP 410. - Current home cardiac medications include metoprolol tartrate 12.5 mg twice a day, Lasix 20 mg daily, lisinopril 20 mg at night, aspirin 81 mg daily. - Most recent echocardiogram obtained in June 2022 revealed ejection fraction 55 to 60%, moderate to severe MR, mild TR, trace to mild pulmonic regurgitation - Patient underwent Lexiscan stress test in the office in October 2022 which was negative for inducible ischemia REVIEW OF SYSTEMS: At the time of my exam: CONSTITUTIONAL: Denies fever or chills. HEENT: Denies blurred vision, vision changes, or eye pain. Denies hemoptysis CARDIOVASCULAR: Denies chest pain. Denies orthopnea. Denies PND. Denies pa lpitations RESPIRATORY: Denies shortness of breath. GASTROINTESTINAL: Denies abdominal pain. Denies nausea or vomiting. HEMATOLOGIC: Denies bleeding disorders. GENITOURINARY: Denies any blood in urine. SKIN: Denies pruitis. Denies rash. PHYSICAL EXAM: VITAL SIGNS: Reviewed. GENERAL: Well-developed in no acute distress. HEENT: Head is normocephalic. Pupils are equal, round. Sclerae anicteric. Mucous membranes of the mouth are moist. Neck supple. No JVD or thyromegaly LUNGS: Respirations even and unlabored. Lungs essentially clear to auscultation bilaterally. HEART: Regular rate and rhythm. S1 and S2 heard. Systolic murmur noted. ABDOMEN: Soft. Nondistended. Nontender. EXTREMITIES: Normal range of motion. No clubbing or cyanosis. Peripheral pulses intact. No lower extremity edema NEUROLOGIC: Awake and alert. Oriented x 3. ASSESSMENT: Dizziness Left arm paresthesias Non-STEMI History of hypertension Chronic diastolic heart failure Moderate to severe mitral regurgitation LVH Chronic kidney disease PLAN: Obtain 2D echo to assess cardiac structure and function Resume home cardiac medications Continue IV heparin Continue IV fluids Patient to undergo cardiac catheterization today with Dr. Esparza Further recommendations pending patient course Nurse practitioner note has been reviewed by physician. Signing provider agrees with the documented findings, assessment, and plan of care documented by PACKAGING LINE ATTENDANT as a scribe. Past Medical History Past Medical History: Hypertension Additional Past Medical History / Comment(s): sinus allergies. lt leg swelling on occasion. "pouching in bowel" History of Any Multi-Drug Resistant Organisms: None Reported Past Surgical History: Back Surgery, Bowel Resection, Cholecystectomy, Heart Catheterization, Hysterectomy Additional Past Surgical History / Comment(s): two back surgeries Past Anesthesia/Blood Transfusion Reactions: Previous Problems w/ Anesthesia, Motion Sickness Additional Past Anesthesia/Blood Transfusion Reaction / Comment(s): ether caused N/V Past Psychological History: No Psychological Hx Reported Smoking Status: Never smoker Past Alcohol Use History: Rare Additional Past Alcohol Use History / Comment(s): Patient states she "enjoys the [place] Past Drug Use History: None Reported - Past Family History Mother Family Medical History: CVA/TIA Sister(s) Family Medical History: Congestive Heart Failure (CHF) Additional Family Medical History / Comment(s): Angina Medications and Allergies Home Medications Medication Instructions Recorded Confirmed Type Montelukast Sodium [Singulair] 10 mg PO DAILY 03/25/17 09/18/24 History Metoprolol Tartrate [Lopressor] 12.5 mg PO BID 12/24/19 09/18/24 History Aspirin EC [Ecotrin Low Dose] 81 mg PO HS 09/18/24 09/18/24 History Cyanocobalamin [Vitamin B-12 1,000 mcg SQ Q30D 09/18/24 09/18/24 History Injection] Ergocalciferol [Vitamin D2 (1250 1,250 mcg PO TU 09/18/24 09/18/24 History Mcg = 29955 Iu)] Furosemide [Lasix] 20 mg PO DAILY 09/18/24 09/18/24 History Nitroglycerin Sl Tabs [Nitrostat] 0.4 mg SL Q5M PRN 09/18/24 09/18/24 History Sertraline [Zoloft] 25 mg PO DAILY 09/18/24 09/18/24 History lisinopriL [Zestril] 20 mg PO HS 09/18/24 09/18/24 History Allergies Allergy/AdvReac Type Severity Reaction Status Date / Time menthol Allergy Unknown Verified 09/18/24 15:05 [From Chloraseptic Sore Throat] Penicillins Allergy Swelling/Ra Verified 09/18/24 15:05 sh Sulfa (Sulfonamide Allergy Swelling/Ra Verified 09/18/24 15:05 Antibiotics) sh levofloxacin [From Levaquin] AdvReac Abdominal Verified 09/18/24 15:05 Pain, N/V metronidazole AdvReac Abdominal Verified 09/18/24 15:05 Pain, N/V Physical Exam Vitals: Vital Signs Temp Pulse Pulse Resp BP BP Pulse Ox 09/19/24 07:00 98.1 F 60 16 143/72 98 09/19/24 01:09 98.3 F 58 L 17 111/59 96 09/18/24 23:10 98 F 98 18 138/88 97 09/18/24 22:43 98.4 F 79 16 140/58 96 09/18/24 20:36 58 L 18 154/49 98 09/18/24 19:00 58 L 18 160/59 98 09/18/24 17:00 58 L 18 146/59 95 09/18/24 15:00 73 16 179/87 95 09/18/24 13:33 61 16 141/68 95 09/18/24 11:31 97.3 F L 83 20 161/74 99 Intake and Output 09/18/24 09/19/24 09/19/24 22:59 06:59 14:59 Other: Voiding Method Toilet Diaper # Voids 2 1 # Bowel Movements 1 Weight 70.307 kg Results 09/18/24 12:03 09/19/24 03:26 Cardiac Enzymes 09/18/24 09/18/24 09/18/24 Range/Units 12:03 12:03 16:06 AST 29 (14-36) U/L Troponin I <0.012 0.058 H* (0.000-0.034) ng/mL 09/18/24 Range/Units 20:13 AST (14-36) U/L Troponin I 0.096 H* (0.000-0.034) ng/mL Coagulation 09/18/24 09/19/24 Range/Units 12:03 00:09 PT 10.5 (10.0-12.5) sec APTT 21.1 L 46.0 H (22.0-30.0) sec CBC 09/18/24 Range/Units 12:03 WBC 6.83 (4.50-10.00) 10*3/uL RBC 3.88 L (4.10-5.20) 10*6/uL Hgb 12.4 (12.0-15.0) g/dL Hct 37.0 L (37.2-46.3) % Plt Count 197 (140-440) 10*3/uL Comprehensive Metabolic Panel 09/18/24 Range/Units 12:03 Sodium 140 (137-145) mmol/L Potassium 4.3 (3.5-5.1) mmol/L Chloride 106 (98-107) mmol/L Carbon Dioxide 23 (22-30) mmol/L BUN 25 H (7-17) mg/dL Creatinine 1.66 H (0.52-1.04) mg/dL Glucose 145 H (74-99) mg/dL Calcium 9.7 (8.4-10.2) mg/dL AST 29 (14-36) U/L ALT 17 (4-34) U/L Alkaline Phosphatase 67 (38-126) U/L Total Protein 8.0 (6.3-8.2) g/dL Albumin 4.7 (3.5-5.0) g/dL Current Medications Generic Name Dose Route Start Last Admin Trade Name Freq PRN Reason Stop Dose Admin Acetaminophen 650 mg 09/18/24 15:19 Acetaminophen Tab 325 Mg Tab PO Q6HR PRN Mild Pain or Fever > 100.5 Hydrocodone Bitart/Acetaminophen 1 each 09/18/24 15:19 Hydrocodone/Apap 5-325mg 1 Each Tab PO Q4HR PRN Moderate Pain (Scale 4 to 6) Aspirin 81 mg 09/18/24 21:00 09/18/24 22:40 Aspirin 81 Mg PO 81 mg HS HIREN Administration Cyanocobalamin 1,000 mcg 09/26/24 09:00 Cyanocobalamin 1,000 Mcg/Ml 1 Ml Vial SQ Q30D HIREN Ergocalciferol 1,250 mcg 09/23/24 09:00 Ergocalciferol 1,250 Mcg (50,000 Iu) Capsule PO TU [facility] Heparin Sodium (Porcine) 0 unit 09/18/24 17:43 Heparin Sodium 1,000 Un/Ml (10ml Vl) IV PER PROTOCOL PRN Low PTT Protocol Sodium Chloride 500 mls @ 75 mls/hr 09/18/24 16:00 09/19/24 05:24 Saline 0.9% IV 75 mls/hr .Q6H40M HIREN Administration Heparin Sodium/Sodium Chloride 250 mls @ 8.437 mls/hr 09/18/24 17:45 09/18/24 18:26 25,000 unit/ Sodium Chloride IV 12 units/kg/hr .Q24H HIREN 8.437 mls/hr Administration Protocol 12 UNITS/KG/HR Meclizine HCl 25 mg 09/18/24 15:21 Meclizine 25 Mg Tab PO Q6H PRN . Metoprolol Tartrate 12.5 mg 09/18/24 21:00 09/18/24 22:39 Metoprolol Tartrate 12.5 Mg Tab PO 12.5 mg BID HIREN Administration Montelukast Sodium 10 mg 09/19/24 09:00 Montelukast 10 Mg Tab PO DAILY HIREN Naloxone HCl 0.2 mg 09/18/24 15:19 Naloxone 0.4 Mg/Ml 1 Ml Vial IV Q2M PRN Opioid Reversal Nitroglycerin 0.4 mg 09/18/24 15:21 Nitroglycerin Sl Tabs 0.4 Mg Tab SUBLINGUAL Q5M PRN Chest Pain Ondansetron HCl 4 mg 09/18/24 15:19 Ondansetron 4 Mg/2 Ml Vial IVP Q8HR PRN Nausea And Vomiting Pantoprazole Sodium 40 mg 09/19/24 09:00 Pantoprazole 40 Mg/10 Ml Vial IV DAILY HIREN Sertraline HCl 25 mg 09/19/24 09:00 Sertraline 25 Mg Tab PO DAILY HIREN Intake and Output 09/18/24 09/19/24 09/19/24 22:59 06:59 14:59 Other: Voiding Method Toilet Diaper # Voids 2 1 # Bowel Movements 1 Weight 70.307 kg 09/18/24 12:03 09/18/24 12:03
[2024-09-19] MEDS: IV FLUID CONTINUATION 1,000 ML IV ONE (11:38)
[2024-09-19] MEDS: fentaNYL (PF) 50 MCG/ML 2 ML AMP IVP ONE (12:23)
[2024-09-19] MEDS: MIDAZOLAM 2 MG/2 ML VIAL IVP ONE (12:24)
[2024-09-19] MEDS: LIDOCAINE 1% INJ 10MG/ML (20 ML MDV) SQ ONE (12:30)
[2024-09-19] MEDS: VERAPAMIL SYRINGE (5 MG/10 ML) INTRAARTER ONE (12:32)
[2024-09-19] MEDS: HEPARIN SODIUM 1,000 UN/ML (10ML VL) IV ONE (12:34)
[2024-09-19] MEDS: HEPARIN SODIUM,PORCINE 10,000 UNIT in SODIUM CHLORIDE 0.9% 1,000 ML IRRIGATION PRN (12:36)
[2024-09-19] MEDS: HEPARIN SODIUM,PORCINE (1 ML) 2,500 UNIT in SODIUM CHLORIDE 0.9% 250 ML IRRIGATION PRN (12:36)
[2024-09-19] MEDS: IOPAMIDOL-370 100ML BTL INJ ONE (12:38)
--- NOTE | 2024-09-19 12:44 | P.CARDCATH ---
Description of Procedure: PROCEDURES PERFORMED: Left heart catheterization, bilateral coronary angiography, ultrasound guided arterial access INDICATION: Non-STEMI CONSENT:I have discussed the risks, benefits and alternative therapies for the above-mentioned procedure and for both sedation/analgesia as well as necessary blood product administration, if indicated, as they pertain to this patient. The patient has indicated understanding and acceptance of the risks and procedures discussed. PROCEDURE: After the risks, benefits and alternatives of the above mentioned procedure explained in detail with the patient, informed consent was obtained. Patient was taken to the catheterization lab and prepped and draped in usual fashion. Ultrasound guidance was used to assess for arterial access. 1% lidocaine was used to anesthetize the right radial artery. A 6-Pakistani sheath was placed in the right radial artery using modified Seldinger technique and ul trasound guidance. Left coronary angiography was performed with a 5-Pakistani JL 3.5 catheter and right coronary angiography was performed with a 5-Pakistani FR5 catheter in various views. A 5-Pakistani FR5 catheter was inserted into the left ventricle and pressure measurements were obtained. The right radial sheath was removed and a TR band was placed with hemostasis achieved. The patient tolerated the procedure well. Patient was transported back to the post catheterization holding area in stable condition. Conscious Sedation: Patient was monitored under the direct supervision of myself for conscious sedation using Versed and fentanyl for a total duration of 9 minutes HEMODYNAMICS: Aorta: 115/50 LV: 120/10, LVEDP 22 SELECTIVE CORONARY ARTERIOGRAPHY: LEFT MAIN: The left main is a large caliber vessel which bifurcates into the LAD and circumflex. There is no significant stenosis. LEFT ANTERIOR DESCENDING CORONARY ARTERY: LAD is a large caliber vessel which wraps around to the apex. There is mild mid LAD 20 to 30% stenosis and otherwise normal LEFT CIRCUMFLEX CORONARY ARTERY: Left circumflex is a moderate caliber vessel without significant stenosis. RIGHT CORONARY ARTERY: The right coronary artery is a large caliber vessel which gives off a PDA and PLV branch and is the dominant vessel. There is no significant stenosis. FINAL IMPRESSION: 1. Relatively normal coronary arteries other than mid LAD 20 to 30% stenosis 2. Elevated left sided filling pressures PLAN: 1. Aggressive risk factor modification per most recent ACC/AHA guidelines. 2. Follow-up in the office in 1-2 weeks.
--- NOTE | 2024-09-19 12:55 | CA ---
Transthoracic Echo Report Name: Carmen Booker Age: 79 Gender: F : 1945 Exam Date: 09/19/2024 11:14 Exam Location: [place] [facility] Ht (in): 63 Wt (lb): 155 Ordering Physician: Yee Grajeda Attending/Referring Phys: [id number], [facility] Gale Tian RDCS Procedure CPT: Indications: Elevated troponins, dizziness Cardiac Hx: Technical Quality: Good Contrast 1: Total Dose (mL): Contrast 2: Total Dose (mL): MEASUREMENTS (Male / Female) Normal Values 2D ECHO LV Diastolic Diameter PLAX 4.0 cm 4.2 - 5.9 / 3.9 - 5.3 cm LV Systolic Diameter PLAX 2.4 cm IVS Diastolic Thickness 1.0 cm 0.6 - 1.0 / 0.6 - 0.9 cm LVPW Diastolic Thickness 0.7 cm 0.6 - 1.0 / 0.6 - 0.9 cm LV Relative Wall Thickness 0.4 LVOT Diameter 2.2 cm Aortic Root Diameter 2.8 cm LV Diastolic Volume MOD BP 59.3 cm??? 67 - 155 / 56 - 104 cm??? LV Systolic Volume MOD BP 19.1 cm??? 22 - 58 / 19 - 49 cm??? LV Ejection Fraction MOD BP 67.8 % >= 55 % LV Cardiac Index MOD BP 1823.0 cm???/min???m??? LV Diastolic Volume MOD 4C 50.1 cm??? LV Systolic Volume MOD 4C 18.5 cm??? LV Ejection Fraction MOD 4C 63.1 % LV Cardiac Index MOD 4C 1434.6 cm???/min???m??? LV Diastolic Length 4C 7.7 cm LV Systolic Length 4C 6.6 cm LV Diastolic Volume MOD 2C 69.3 cm??? LV Systolic Volume MOD 2C 20.4 cm??? LV Ejection Fraction MOD 2C 70.6 % LV Cardiac Index MOD 2C 2218.6 cm???/min???m??? LV Diastolic Length 2C 8.0 cm LV Systolic Length 2C 6.7 cm DOPPLER AV Peak Velocity 194.6 cm/s AV Peak Gradient 15.2 mmHg AV Mean Velocity 134.8 cm/s AV Mean Gradient 8.4 mmHg AV Velocity Time Integral 43.5 cm LVOT Peak Velocity 144.1 cm/s LVOT Peak Gradient 8.3 mmHg LVOT Velocity Time Integral 36.2 cm LVOT Stroke Volume 134.6 cm??? LVOT Stroke Volume Index 77.5 ml/m??? LVOT Cardiac Index 6100.3 cm???/min???m??? AV Area Cont Eq vti 3.1 cm??? AV Area Cont Eq pk 2.8 cm??? Mitral E Point Velocity 74.1 cm/s Mitral A Point Velocity 97.1 cm/s Mitral E to A Ratio 0.8 MV Deceleration Time 191.0 ms MV E' Velocity 6.7 cm/s Mitral E to MV E' Ratio 11.0 TR Peak Velocity 282.8 cm/s TR Peak Gradient 32.0 mmHg Right Atrial Pressure 5.0 mmHg Pulmonary Artery Systolic Pressu 37.0 mmHg Right Ventricular Systolic Press 37.0 mmHg PV Peak Velocity 113.7 cm/s PV Peak Gradient 5.2 mmHg FINDINGS Left Ventricle Left ventricular ejection fraction is estimated at 65 %. Mildly increased septal wall thickness. Left ventricular cavity size normal. No obvious regional wall motion abnormalities. Hyperdynamic left ventricular systolic function. Mid cavitary gradien at rest 23mmHg. Right Ventricle Normal right ventricular size and function. Mild pulmonary hypertension. Right Atrium Normal right atrial size. Left Atrium Normal left atrial size. Mitral Valve Structurally normal mitral valve. No evidence for mitral valve prolapse. No mitral stenosis. Trace mitral regurgitation. Aortic Valve Trileaflet aortic valve calcified. No aortic valve stenosis or regurgitation. Aortic sclerosis but no stenosis Tricuspid Valve Structurally normal tricuspid valve. No tricuspid stenosis. Mild tricuspid regurgitation. Pulmonic Valve Structurally normal pulmonic valve. No pulmonic stenosis. Trace pulmonic regurgitation. Pericardium No pericardial effusion. Aorta Normal size aortic root and proximal ascending aorta. CONCLUSIONS Normal LV size and hyperdynamic systolic function. Hyperdynamic left ventricle with mid cavitary gradient of a mild degree aortic sclerosis and mitral annular calcification. No aortic stenosis. Slightly elevated PA pressures. No pericardial effusion Previewed by: Dr. Kasey Pelaez MD (Electronically Signed) Final Date: 19 Sep 2024 12:54
--- NOTE | 2024-09-19 23:06 | P.HPIM ---
History of Present Illness H&P Date: 09/19/24 This is a 79-year-old female who presented to the emergency department with reports of dizziness and somewhat short of breath that lasted a few days and worsened over today which prompted her to come to the ER. Patient reports she follows with Dr. Sabrina Sanchez in the outpatient setting with a past medical history of hypertension, lower extremity left leg swelling occasionally with very rare alcohol use, denies smoking and denies any illicit drug use. Labs reviewed on admission reveal a white count of 6.83, hemoglobin 12.4, platelets 197, INR 0.9, D-dimer 0.57, sodium 140, potassium 4.3, BUN elevated at 25 with a creatinine of 1.66. Magnesium 1.8, liver functions within normal limits, tro ponin 0.096, BNP 410 and urinalysis along with influenza, RSV, COVID testing was negative. Chest x-ray revealed no acute cardiopulmonary process or disease. CT brain was performed for the reported dizziness and left numbness with tingling of the hands and revealed no acute intracranial process with nonspecific white matter changes likely secondary to chronic small vessel ischemic disease. On ex am though symptoms have since resolved and patient had been reporting intermittent periods of chest discomfort. EKG revealed sinus rhythm. ER ordered carotid Dopplers revealing no hemodynamically significant stenosis with some mild plaque at bilateral bulbs. Initially neurology was consulted although feel this is more cardiac related and awaiting cardiac evaluation. 2D echo performed showed normal LV size and hyperdynamic systolic function with an EF of approximately 65% with mildly increased septal wall thickness. With no pericardial effusion noted. Patient was evaluated by cardiology early this morning and placed on heparin recommending cardiac catheterization and patient remains n.p.o. and awaiting transport. Patient has been admitted for further cardiology evaluation. REVIEW OF SYSTEMS: CONSTITUTIONAL: No fever, no malaise, no fatigue. HEENT: No recent visual problems or hearing problems. Denied any sore throat. CARDIOVASCULAR: Reports of chest pain that has since resolved but intermittent at times, orthopnea, PND, no palpitations, no syncope. PULMONARY: Reported shortness of breath that has resolved, no cough, no hemoptysis. GASTROINTESTINAL: No diarrhea, no nausea, no vomiting, no abdominal pain. NEUROLOGICAL: No headaches, reports weakness that has resolved, no numbness. No further tingling of the hands HEMATOLOGICAL: Denies any bleeding or petechiae. GENITOURINARY: Denies any burning micturition, frequency, or urgency. MUSCULOSKELETAL/RHEUMATOLOGICAL: Denies any joint pain, swelling, or any muscle pain. ENDOCRINE: Denies any polyuria or polydipsia. The rest of the 14-point review of systems is negative. PHYSICAL EXAMINATION: GENERAL: The patient is alert and oriented x3, not in any acute distress. Well developed, well nourished. Elderly appearing HEENT: Pupils are round and equally reacting to light. EOMI. No scleral icterus. No conjunctival pallor. Normocephalic, atraumatic. No pharyngeal erythema. No thyromegaly. CARDIOVASCULAR: S1 and S2 muffled PULMONARY: Chest is clear to auscultation, no wheezing or crackles. ABDOMEN: Soft, nontender, nondistended, normoactive bowel sounds. No palpable organomegaly. MUSCULOSKELETAL: No joint swelling or deformity. EXTREMITIES: No cyanosis, clubbing, or pedal edema. NEUROLOGICAL: Gross neurological examination did not reveal any focal deficits. SKIN: No rashes. Assessment: Dizziness with chest pain, rule out ACS NSTEMI with trending upward troponins, scheduled to undergo cardiac catheterization History of chronic diastolic heart failure, not in exacerbation History of hypertension History of lower extremity left leg swelling Acute on chronic kidney disease Moderate to severe mitral regurgitation with left ventricular hypertrophy GI prophylaxis DVT prophylaxis Full code Plan: Patient was admitted with chest pain and also noted to have left side hand tingling and did have elevation in troponin started on heparin. Cardiology evaluated early this morning recommending cardiac catheterization and patient was agreeable Home medications reviewed and resumed as appropriate Patient is currently n.p.o. and will await catheterization report Recommend PT/OT therapy evaluation. Patient reports she will be going home on discharge Follow-up on repeat labs and will monitor kidney functions closely. The impression and plan of care has been dictated by Marla Matta, Nurse Practitioner as directed. Dr. Nataliia MD I have performed a history and examination and MDM of this patient, discussed the same with the dictator, and agree with the dictator's assessment and plan as written ,documented as a scribe. Based on total visit time, I have performed more than 50% of the visit. Past Medical History Past Medical History: Hypertension Additional Past Medical History / Comment(s): sinus allergies. lt leg swelling on occasion. "pouching in bowel" History of Any Multi-Drug Resistant Organisms: None Reported Past Surgical History: Back Surgery, Bowel Resection, Cholecystectomy, Heart Catheterization, Hysterectomy Additional Past Surgical History / Comment(s): two back surgeries Past Anesthesia/Blood Transfusion Reactions: Previous Problems w/ Anesthesia, Motion Sickness Additional Past Anesthesia/Blood Transfusion Reaction / Comment(s): ether caused N/V Past Psychological History: No Psychological Hx Reported Smoking Status: Never smoker Past Alcohol Use History: Rare Additional Past Alcohol Use History / Comment(s): Patient states she "enjoys the [place] Past Drug Use History: None Reported - Past Family History Mother Family Medical History: CVA/TIA Sister(s) Family Medical History: Congestive Heart Failure (CHF) Additional Family Medical History / Comment(s): Angina Medications and Allergies Home Medications Medication Instructions Recorded Confirmed Type Montelukast Sodium [Singulair] 10 mg PO DAILY 03/25/17 09/18/24 History Metoprolol Tartrate [Lopressor] 12.5 mg PO BID 12/24/19 09/18/24 History Aspirin EC [Ecotrin Low Dose] 81 mg PO 09/18/24 09/18/24 History Cyanocobalamin [Vitamin B-12 1,000 mcg SQ Q30D 09/18/24 09/18/24 History Injection] Ergocalciferol [Vitamin D2 (1250 1,250 mcg PO TU 09/18/24 09/18/24 History Mcg = 66899 Iu)] Furosemide [Lasix] 20 mg PO DAILY 09/18/24 09/18/24 History Nitroglycerin Sl Tabs [Nitrostat] 0.4 mg SL Q5M PRN 09/18/24 09/18/24 History Sertraline [Zoloft] 25 mg PO DAILY 09/18/24 09/18/24 History lisinopriL [Zestril] 20 mg PO HS 09/18/24 09/18/24 History Allergies Allergy/AdvReac Type Severity Reaction Status Date / Time menthol Allergy Unknown Verified 09/18/24 15:05 [From Chloraseptic Sore Throat] Penicillins Allergy Swelling/Ra Verified 09/18/24 15:05 sh Sulfa (Sulfonamide Allergy Swelling/Ra Verified 09/18/24 15:05 Antibiotics) sh levofloxacin [From Levaquin] AdvReac Abdominal Verified 09/18/24 15:05 Pain, N/V metronidazole AdvReac Abdominal Verified 09/18/24 15:05 Pain, N/V Physical Exam Vitals: Vital Signs Temp Pulse Pulse Resp BP BP Pulse Ox 09/19/24 07:00 98.1 F 60 16 143/72 98 09/19/24 01:09 98.3 F 58 L 17 111/59 96 09/18/24 23:10 98 F 98 18 138/88 97 09/18/24 22:43 98.4 F 79 16 140/58 96 09/18/24 20:36 58 L 18 154/49 98 09/18/24 19:00 58 L 18 160/59 98 09/18/24 17:00 58 L 18 146/59 95 09/18/24 15:00 73 16 179/87 95 09/18/24 13:33 61 16 141/68 95 09/18/24 11:31 97.3 F L 83 20 161/74 99 Intake and Output 09/18/24 09/19/24 09/19/24 22:59 06:59 14:59 Other: Voiding Method Toilet Toilet Diaper Diaper # Voids 2 1 # Bowel Movements 1 Weight 70.307 kg Results CBC & Chem 7: 09/18/24 12:03 09/19/24 03:26 Labs: Abnormal Lab Results - Last 24 Hours (Table) 09/18/24 09/18/24 09/18/24 Range/Units 12:03 12:03 12:03 RBC 3.88 L (4.10-5.20) 10*6/uL Hct 37.0 L (37.2-46.3) % APTT 21.1 L (22.0-30.0) sec Carbon Dioxide (21.6-31.8) mmol/L Anion Gap (4.00-12.00) mmol/L BUN 25 H (7-17) mg/dL Creatinine 1.66 H (0.52-1.04) mg/dL Est GFR (CKD-EPI) (>=60) Glucose 145 H (74-99) mg/dL Troponin I (0.000-0.034) ng/mL Urine Appearance (Clear) Ur Leukocyte Esterase (Negative) Urine Bacteria (None) /hpf Urine Mucus (None) /hpf 09/18/24 09/18/24 09/18/24 Range/Units 13:07 16:06 20:13 RBC (4.10-5.20) 10*6/uL Hct (37.2-46.3) % APTT (22.0-30.0) sec Carbon Dioxide (21.6-31.8) mmol/L Anion Gap (4.00-12.00) mmol/L BUN (7-17) mg/dL Creatinine (0.52-1.04) mg/dL Est GFR (CKD-EPI) (>=60) Glucose (74-99) mg/dL Troponin I 0.058 H* 0.096 H* (0.000-0.034) ng/mL Urine Appearance Cloudy H (Clear) Ur Leukocyte Esterase Small H (Negative) Urine Bacteria Rare H (None) /hpf Urine Mucus Rare H (None) /hpf 09/19/24 09/19/24 Range/Units 00:09 03:26 RBC (4.10-5.20) 10*6/uL Hct (37.2-46.3) % APTT 46.0 H (22.0-30.0) sec Carbon Dioxide 19.9 L (21.6-31.8) mmol/L Anion Gap 13.10 H (4.00-12.00) mmol/L BUN (7-17) mg/dL Creatinine 1.7 H (0.52-1.04) mg/dL Est GFR (CKD-EPI) 30 L (>=60) Glucose 115 H (74-99) mg/dL Troponin I (0.000-0.034) ng/mL Urine Appearance (Clear) Ur Leukocyte Esterase (Negative) Urine Bacteria (None) /hpf Urine Mucus (None) /hpf
[2024-09-20] MEDS: ACETAMINOPHEN TAB 325 MG TAB PO PRN (06:10)
[2024-09-20 07:56] VITALS: BP 134/73; PULSE 58; RESP 16; TEMP 98.2
[2024-09-20 11:02] LABS: BUN/Creat Ratio 10.56 Ratio (12.00-20.00); Blood Urea Nitrogen 16.9 mg/dL (9.0-27.0); Calcium 8.6 mg/dL (8.7-10.3); Carbon Dioxide 18.9 mmol/L (21.6-31.8); Chloride 113 mmol/L (96-109); Glucose 103 mg/dL (70-110); Potassium 4.3 mmol/L (3.5-5.5); Sodium 143 mmol/L (135-145)
--- NOTE | 2024-09-20 12:42 | P.DS ---
Providers Date of admission: 09/18/24 15:18 Attending physician: Carly William Consults: 09/18/24 17:45 Consult Physician Stat Consulting Provider: Kasey Pelaez Reason/Comments: Elevated troponin Do you want consulting provider notified?: Yes Primary care physician: Sabrina Sanchez [facility] Course: This is a 79-year-old female who presented to the emergency department with reports of dizziness and somewhat short of breath that lasted a few days and worsened over today which prompted her to come to the ER. Patient reports she follows with Dr. Sabrina Sanchez in the outpatient setting with a past medical history of hypertension, lower extremity left leg swelling occasionally with very rare alcohol use, denies smoking and denies any illicit drug use. Labs reviewed on admission reveal a white count of 6.83, hemoglobin 12.4, platelets 197, INR 0.9, D-dimer 0.57, sodium 140, potassium 4.3, BUN elevated at 25 with a creatinine of 1.66. Magnesium 1.8, liver functions within normal limits, troponin 0.096, BNP 410 and urinalysis along with influenza, RSV, COVID testing was negative. Chest x-ray revealed no acute cardiopulmonary process or disease. CT brain was performed for the reported dizziness and left numbness with tingling of the hands and revealed no acute intracranial process with nonspecific white matter changes likely secondary to chronic small vessel ischemic disease. On exam though symptoms have since resolved and patient had been reporting intermittent periods of chest discomfort. EKG revealed sinus rhythm. ER ordered carotid Dopplers revealing no hemodynamically significant stenosis with some mild plaque at bilateral bulbs. Initially neurology was consulted although feel this is more cardiac related and awaiting cardiac evaluation. 2D echo performed showed normal LV size and hyperdynamic systolic function with an EF of approximately 65% with mildly increased septal wall thickness. With no pericardial effusion noted. [facility] and placed on heparin recommending cardiac catheterization and patient remains n.p.o. and awaiting transport. Patient has been admitted for further cardiology evaluation. 09/20/2024 Patient underwent catheterization showed 20 to 30% disease in LAD and cardiology is recommending statin. Patient also takes a small dose of beta-vicky which will be continued. Patient had acute renal failure on admission which was believed to be secondary to hypotension. Patient serum creatinine slightly improved from 1.7-1.6 baseline appears to be around 1.2 I will discontinue the lisinopril patient has to check the blood pressure at home if it starts going up asked her to take half a pill of lisinopril patient also takes Lasix for peripheral edema which may be affecting her kidney as well because of which I asked her to take let Lasix only as needed basis and patient will be discharged today. PHYSICAL EXAMINATION: GENERAL: The patient is alert and oriented x3, not in any acute distress. Well developed, well nourished. Elderly appearing HEENT: Pupils are round and equally reacting to light. EOMI. No scleral icterus. No conjunctival pallor. Normocephalic, atraumatic. No pharyngeal erythema. No thyromegaly. CARDIOVASCULAR: S1 and S2 muffled PULMONARY: Chest is clear to auscultation, no wheezing or crackles. ABDOMEN: Soft, nontender, nondistended, normoactive bowel sounds. No palpable organomegaly. MUSCULOSKELETAL: No joint swelling or deformity. EXTREMITIES: No cyanosis, clubbing, or pedal edema. NEUROLOGICAL: Gross neurological examination did not reveal any focal deficits. SKIN: No rashes. Assessment: Dizziness with chest pain, rule out ACS patient status post cardiac catheterization. Dizziness is secondary to hypotension medication management as mentioned above NSTEMI with trending upward troponins, cardiac evaluation showed mild LAD disease 20 to 30% hypertension Acute on chronic kidney disease Moderate to severe mitral regurgitation with left ventricular hypertrophy Plan - Discharge Summary Discharge Rx Participant: No New Discharge Prescriptions: New Atorvastatin [Lipitor] 40 mg PO DAILY #30 tab Continue Montelukast Sodium [Singulair] 10 mg PO DAILY Metoprolol Tartrate [Lopressor] 12.5 mg PO BID Cyanocobalamin [Vitamin B-12 Injection] 1,000 mcg SQ Q30D Aspirin EC [Ecotrin Low Dose] 81 mg PO HS Sertraline [Zoloft] 25 mg PO DAILY Ergocalciferol [Vitamin D2 (1250 Mcg = 67585 Iu)] 1,250 mcg PO TU Nitroglycerin Sl Tabs [Nitrostat] 0.4 mg SL Q5M PRN PRN Reason: Chest Pain Changed Furosemide [Lasix] 20 mg PO DAILY PRN #0 PRN Reason: Edema Discontinued lisinopriL [Zestril] 20 mg PO HS Discharge Medication List Montelukast Sodium [Singulair] 10 mg PO DAILY 03/25/17 [History] Metoprolol Tartrate [Lopressor] 12.5 mg PO BID 12/24/19 [History] Aspirin EC [Ecotrin Low Dose] 81 mg PO HS 09/18/24 [History] Cyanocobalamin [Vitamin B-12 Injection] 1,000 mcg SQ Q30D 09/18/24 [History] Ergocalciferol [Vitamin D2 (1250 Mcg = 98722 Iu)] 1,250 mcg PO TU 09/18/24 [History] Nitroglycerin Sl Tabs [Nitrostat] 0.4 mg SL Q5M PRN 09/18/24 [History] Sertraline [Zoloft] 25 mg PO DAILY 09/18/24 [History] Atorvastatin [Lipitor] 40 mg PO DAILY #30 tab 09/20/24 [Rx] Furosemide [Lasix] 20 mg PO DAILY PRN #0 09/20/24 [Rx] Follow up Appointment(s)/Referral(s): Sabrina Sanchez MD [Primary Care Provider] - 3 Days Ambulatory/Diagnostic Orders: Basic Metabolic Panel [LAB.AMB] Time Frame: 3 Days, Location: None Selected Discharge Disposition: HOME SELF-CARE
--- NOTE | 2024-09-20 13:02 | P.PN ---
Subjective Progress Note Date: 09/20/24 HISTORY OF PRESENT ILLNESS: This is a 79-year-old female with a past medical history significant for hy pertension, congestive heart failure, moderate to severe MR, LVH, and dizziness. Patient follows in the office with Dr. Esparza. We have been asked to see the patient in consultation for elevated troponin. Patient examined at the bedside. Patient presented to the hospital with a chief complaint of dizziness. She also reports having chest pressure with tingling into her left arm and fingers. Airk gomez was found to have elevated troponins and was started on IV heparin. DIAGNOSTICS: - EKG reveals sinus mechanism with LVH. - Chest xray negative for acute process - Carotid Doppler: No hemodynamically significant stenosis bilaterally - Laboratory data: WBC 6.83. Hemoglobin 12.4. Platelet count 197. D-dimer 0.57. Sodium 140. Potassium 4.3. BUN 25. Creatinine 1.66. Troponin 0.012. 0.058. 0.096. proBNP 410. - Current home cardiac medications include metoprolol tartrate 12.5 mg twice a day, Lasix 20 mg daily, lisinopril 20 mg at night, aspirin 81 mg daily. - Most recent echocardiogram obtained in June 2022 revealed ejection fraction 55 to 60%, moderate to severe MR, mild TR, trace to mild pulmonic regurgitation - Patient underwent Lexiscan stress test in the office in October 2022 which was negative for inducible ischemia Progress note September 20, 2024 Patient is doing well from cardiovascular standpoint hemodynamically stable, exercise appears intact with no signs of hematoma or bleeding. No reported chest pain shortness of PHYSICAL EXAM: VITAL SIGNS: Reviewed. GENERAL: Well-developed in no acute distress. HEENT: Head is normocephalic. Pupils are equal, round. Sclerae anicteric. Mucous membranes of the mouth are moist. Neck supple. No JVD or thyromegaly LUNGS: Respirations even and unlabored. Lungs essentially clear to auscultation bilaterally. HEART: Regular rate and rhythm. S1 and S2 heard. Systolic murmur noted. ABDOMEN: Soft. Nondistended. Nontender. EXTREMITIES: Normal range of motion. No clubbing or cyanosis. Peripheral pulses intact. No lower extremity edema NEUROLOGIC: Awake and alert. Oriented x 3. ASSESSMENT: Dizziness Left arm paresthesias Non-STEMI History of hypertension Chronic diastolic heart failure Moderate to severe mitral regurgitation LVH Chronic kidney disease PLAN: Echo shows preserved LV size systolic function with no significant regional wall motion abnormality or valvular dysfunction Continue aspirin and Lipitor for mild CAD Discontinue metoprolol because of low resting heart rate Blood pressure is well-controlled Patient is cleared to be discharged from cardiovascular standpoint. Recommend outpatient follow-up with Dr. Esparza Objective - Vital Signs Vital signs: Vital Signs Temp 98.2 F 09/20/24 06:58 Pulse 58 L 09/20/24 06:58 Resp 16 09/20/24 06:58 BP 134/73 09/20/24 06:58 Pulse Ox 94 L 09/20/24 06:58 FiO2 Intake & Output 09/19/24 09/20/24 09/20/24 18:59 06:59 18:59 Intake Total 671 540 702 Balance 671 540 702 Intake: IV 450 Oral 221 540 702 Other: Voiding Method Toilet Diaper # Voids 3 1 2 # Bowel Movements 0 - Labs CBC & Chem 7: 09/18/24 12:03 09/20/24 05:32 Labs: Abnormal Lab Results - Last 24 Hours (Table) 09/20/24 Range/Units 05:32 Chloride 113 H (96-109) mmol/L Carbon Dioxide 18.9 L (21.6-31.8) mmol/L Creatinine 1.6 H (0.6-1.5) mg/dL Est GFR (CKD-EPI) 32 L (>=60) BUN/Creatinine Ratio 10.56 L (12.00-20.00) Ratio Calcium 8.6 L (8.7-10.3) mg/dL
[2024-09-20] MEDS: ATORVASTATIN 40 MG TAB PO SCH (13:13)
[2024-09-21 08:03] LABS: NT-Pro-B-Type Natriuretic Pept 2077 pg/mL (0-450)
[2024-09-21 08:08] LABS: BUN/Creat Ratio 9.88 Ratio (12.00-20.00); Blood Urea Nitrogen 15.8 mg/dL (9.0-27.0); Calcium 8.5 mg/dL (8.7-10.3); Carbon Dioxide 18.9 mmol/L (21.6-31.8); Chloride 112 mmol/L (96-109); Chol/HDL Ratio 4.25 Ratio; Glucose 123 mg/dL (70-110); Magnesium 1.9 mg/dL (1.5-2.4); Potassium 4.6 mmol/L (3.5-5.5); Sodium 144 mmol/L (135-145)
[2024-09-23] MEDS ORDERED: ERGOCALCIFEROL 1,250 MCG (50,000 IU) CAPSULE PO SCH (09:00)
[2024-09-26] MEDS ORDERED: CYANOCOBALAMIN 1,000 MCG/ML 1 ML VIAL SQ SCH (09:00)
== END 2024-09-20 14:00 | disposition home or self-care (01) ==
LOC: EC 11:30 → 6NMEDSUR 15:18
PROVIDERS: ADMIT Internal Medicine; ATTEND Internal Medicine
DX: I95.9 Hypotension, unspecified (principal); I21.4 Non-ST elevation (NSTEMI) myocardial infarction; I25.10 Atherosclerotic heart disease of native coronary artery without angina pectoris; N17.9 Acute kidney failure, unspecified; I13.0 Hypertensive heart and chronic kidney disease with heart failure and stage 1 through stage 4 chronic kidney disease, or unspecified chronic kidney disease; I50.32 Chronic diastolic (congestive) heart failure; I34.0 Nonrheumatic mitral (valve) insufficiency; N18.9 Chronic kidney disease, unspecified; Z79.899 Other long term (current) drug therapy; Z79.82 Long term (current) use of aspirin; Z88.2 Allergy status to sulfonamides; Z88.8 Allergy status to other drugs, medicaments and biological substances; Z88.0 Allergy status to penicillin; Z88.1 Allergy status to other antibiotic agents
CPT/HCPCS: 96376; 96366 ×2; 96375 ×2; 96361; 96365; 99285; 36415; 93005; 93306; 93458; 85379; 83880 ×2; 80061; 80053; 80048 ×2; 84443; 83735 ×2; 84484; 85025; 85610; 85730 ×3; 81001; 83036; 87636; 71046; 93880; 70450; G0378 ×3; C1894; J2250; J1644 ×5; J2405; J2003; J3010; Q9967; J2470 ×2